=== PATIENT | female | born 1940 | race Caucasian/White ===

== ENCOUNTER 2017-04-02 10:24 | Outpatient (CLI) | payer MEDICARE ==
[2017-04-02 11:46] LABS: #Basophils 0.1 thou/uL (0.0-0.2); #Eosinphils 0.4 thou/uL (0.0-0.7); #Lymphocytes 3.6 thou/uL (1.20-3.40); #Monocytes 0.9 thou/uL (0.11-0.59); #Neutrophils 4.8 thou/uL (1.40-6.50); %Basophils 0.8 % (0.0-1.0); %Eosinophils 4.2 % (0.0-10.0); %Lymphocytes 36.8 % (21.0-51.0); Hematocrit 43.3 % (36.0-47.0); Mean Platelet Volume 6.3 fL (7.4-10.4); Red Blood Cell (RBC) Count 4.51 mill/uL (4.20-5.40); White Blood Cell (WBC) Count 9.6 thou/uL (4.8-10.8)
[2017-04-02 11:51] LABS: Prothrombin Time 16.1 SEC (12.0-14.7)
[2017-04-02 11:57] LABS: Bilirubin Negative (Negative); Blood, Urine Negative (Negative); Glucose, Urine (Dipstick) Negative (Negative); Ketone, Urine Negative (Negative); Nitrite Negative (Negative); Protein, Urine (Dipstick) Negative (Neg-Trace); Urobilinogen 0.2 mg/dL (0.2-1.0)
[2017-04-02 11:59] LABS: Bacteria/HPF Rare-Few HPF (None Seen); Hyaline Casts/LPF 0-3 HYALINE CAST LPF (0-3 Hyaline); WBC/HPF 0-3 HPF (0-3)
[2017-04-02 12:03] LABS: Anion Gap 11 mmol/L (10-20); BUN (Urea Nitrogen) 8 mg/dL (9.8-20.1); Calc. Creatinine Clearance 0 mL/min (70-130); Calcium 8.9 mg/dL (7.8-10.44); Carbon Dioxide 23 mmol/L (23-31); Chloride 106 mmol/L (98-107); Estimated GFR-MDRD 58
== END 2017-04-02 10:25 | disposition home or self-care (01) ==
LOC: LABBT 10:24
PROVIDERS: ATTEND Orthopaedic Surgery
DX: Z01.818 Encounter for other preprocedural examination (principal); M17.12 Unilateral primary osteoarthritis, left knee
CPT/HCPCS: 80048; 81001; 85025; 85610; 86850; 86900; 86901; 87081; 93005; 93010

== ENCOUNTER 2017-04-02 13:00 | Inpatient (IN) | payer MEDICARE ==
[2017-04-02 11:15] VITALS: BMI 38.2
[2017-04-07] MEDS ORDERED: Vancomycin HCl 1.5 GM in Sodium Chloride 0.9% 250 ML 300 ML IVPB SCH ×2 (06:00→18:00)
[2017-04-07] MEDS ORDERED: Clindamycin/D5W 600 mg/50 ml Premix Bag ONE (06:12)
[2017-04-07] MEDS ORDERED: Tranexamic Acid 1,000 MG/100 ML BAG ONE ×2 (06:12→10:52)
[2017-04-07] MEDS ORDERED: Ropivacaine 0.2% HCl/PF 20 ML ONE (06:19)
[2017-04-07] MEDS ORDERED: Lidocaine 1% (PF) 30 ML VIAL ONE (06:19)
[2017-04-07] MEDS ORDERED: Midazolam HCl 2 mg/2 ml Vial ONE ×2 (06:19→07:35)
[2017-04-07] MEDS ORDERED: Fentanyl 100 MCG/2 ML VIAL ONE (06:19)
[2017-04-07 06:22] LABS: Prothrombin Time 13.8 SEC (12.0-14.7)
[2017-04-07] MEDS ORDERED: Bupivacaine PF 0.5% 30 ML VIAL ONE (06:49)
[2017-04-07] MEDS ORDERED: Fentanyl 250 MCG/5 ML VIAL ONE (07:35)
[2017-04-07] MEDS ORDERED: Promethazine HCl 25 MG/ML VIAL IM PRN ×2 (07:50→07:57)
[2017-04-07] MEDS ORDERED: traMADol HCl 50 MG TAB PO PRN (07:50)
[2017-04-07] MEDS ORDERED: Zolpidem Tartrate 5 MG TAB PO PRN ×2 (07:50→07:57)
[2017-04-07] MEDS ORDERED: Ondansetron HCl/PF 4 MG/2 ML Vial IVP PRN ×4 (07:50→10:19)
[2017-04-07] MEDS ORDERED: Ketorolac Tromethamine 30 MG/ML VIAL IVP PRN (07:50)
[2017-04-07] MEDS ORDERED: diphenhydrAMINE 25 MG CAP PO PRN (07:57)
[2017-04-07] MEDS ORDERED: Acetaminophen 325 MG TAB PO PRN (07:57)
[2017-04-07] MEDS ORDERED: Tranexamic Acid 1,000 MG in Sodium Chloride 0.9% 100 ML IVPB SCH (08:00)
[2017-04-07] MEDS ORDERED: Carvedilol 6.25 MG TAB PO SCH (09:00)
--- NOTE | 2017-04-07 10:52 | OP ---
DATE OF PROCEDURE: 04/07/2017. PREOPERATIVE DIAGNOSIS: Left knee osteoarthrosis with severe flexion contracture and limitation of m otion. POSTOPERATIVE DIAGNOSIS: Left knee osteoarthrosis with severe flexion contracture and limitation of motion. PROCEDURE PERFORMED: Left total knee replacement using [employer] pinless navigation. SURGEON: Jono Vee M.D. ACCOUNTS RECEIVABLE ADMINISTRATOR: Rusty Purvis PA-C. BLOOD LOSS: Minimal. ANESTHETIC: The patient did have general anesthetic. She also had a preoperative block. COMPLICATIONS: None. IMPLANTS: To the left knee, [employer] total knee system. The femur was a size 3 cruciate retaining. We used a size 3 [place] tibial baseplate. We used a size 3 x 9 mm CSX3 tibial bearing and an as ymmetric 27 x 8 X3 patella. DISPOSITION: She did go to the recovery room in stable condition. INDICATIONS: This 76-year-old female who had her right knee replaced earlier this year and has done very well from this. At this time, she presents with severe pain and limitation of function and lorie on secondary to severe arthritis of the left knee. Her preoperative motion when asleep today was fred roximately 25-50 degrees only. PROCEDURE IN DETAIL: After all appropriate consent forms were explained and signed, the patient was taken back to the Operating Room and at this time was given general anesthetic. Once the level of ane sthesia was appropriate, a well-padded tourniquet was placed on the left leg and the leg was then pre pped and draped in standard surgical fashion. The limb was exsanguinated and tourniquet taken up to 3 00 mmHg. Midline incision was made with a 10 blade down through the skin and subcutaneous tissue. Bov ie electrocautery was used to coagulate any brisk venous bleeding. A new blade was used to make a med ial parapatellar arthrotomy. Small subperiosteal release was performed medially and excess fat pad wa s removed. The knee was flexed up to gain access to the femur. The femur was navigated and distal fem oral resection was made. Epicondylar access was used to align our sizing jig and this was pinned in p lace. We sized our femur to be a ?? 4:1 cutting block was applied and pinned. Anterior and posterior chamfer cuts were then made. We navigated out our proximal tibia and made our proximal tibial resecti on. Spreaders were used to remove any posterior osteophytes off the back of the femur as well as kavon ining meniscal tissue. A long alignment sd was then used to achieve correct rotation of our tibial b aseplate and a size ?? was chosen. This was pinned in place. We trialed the polyethylene and a ?? john yethylene gave us full extension and good stability throughout range of motion. Two towel clips and a saw were used to cut our patella. Three lug nuts were drilled and ?? patella was trialed which sat n icely in the trochlear groove. We then drilled our femur and punched our tibia. All components were r emoved. The knee was thoroughly irrigated and dried. Cement was mixed into the cement gun on the back table. Components were then placed. The knee was held out in full extension until the cement had dri ed. All excess bone cement was removed. Multiple #2 Vicryl stitches as well as a Quill was used to c lose our extensor mechanism. 0 Quill followed by a running Monoderm was then used to close the skin. Surgicel glue was then used on the skin. Once this had dried, soft tissue dressing was applied to the limb, tourniquet was let down, and the toes pinked up nicely. The patient was then awakened and colton en to the Recovery Room in stable condition. All counts were correct at the end of the case. The albert ent did receive preoperative IV antibiotics. The patient was injected with Marcaine for postoperativ e pain relief.
[2017-04-07] MEDS: Fentanyl 100 MCG/2 ML VIAL IV PRN (12:43)
[2017-04-07] MEDS: metFORMIN 500 MG TAB PO SCH (14:01)
[2017-04-07] MEDS: Sodium Chloride 0.9% 1,000 ML IV SCH ×2 (14:01→19:18)
[2017-04-07] MEDS: Carvedilol 25 MG TAB PO SCH ×2 (14:02→20:46)
[2017-04-07] MEDS: Calcium Carbonate + Vit D 1 TAB PO SCH ×2 (14:02→20:47)
[2017-04-07] MEDS: Clopidogrel Bisulfate 75 MG TAB PO SCH (14:02)
[2017-04-07] MEDS: Ferrous Gluconate 324 MG TAB PO SCH ×2 (14:03→20:47)
[2017-04-07] MEDS: Multivitamin W/ Minerals 1 TAB PO SCH (14:03)
[2017-04-07] MEDS: Clindamycin/D5W 900 MG in Premix Bag 1 BAG IVPB SCH ×2 (15:08→22:37)
[2017-04-07] MEDS: Losartan Potassium 25 MG TAB PO SCH (15:17)
[2017-04-07] MEDS: Dronedarone HCl 400 MG TAB PO SCH ×2 (15:17→19:14)
[2017-04-07] MEDS: Senokot S 8.6-50 MG TAB PO SCH ×2 (15:23→20:46)
[2017-04-07] MEDS ORDERED: Propofol 200 MG/20 ML VIAL ONE (16:06)
[2017-04-07] MEDS ORDERED: Glycopyrrolate 0.2 MG/ML 5 ML SYRINGE ONE (16:06)
[2017-04-07] MEDS ORDERED: Lidocaine 1% PF 5 ML VIAL ONE (16:06)
[2017-04-07] MEDS ORDERED: ePHEDrine/0.9% NaCl/PF SYRINGE 50 mg/10 ml ONE (16:06)
[2017-04-07] MEDS ORDERED: PHENYLEPHRINE-NS 100 MCG/ML 10 ML SYRINGE ONE (16:06)
[2017-04-07] MEDS ORDERED: Ondansetron HCl/PF 4 MG/2 ML Vial ONE (16:06)
[2017-04-07] MEDS ORDERED: Ropivacaine 0.2% HCl/PF (40 MG/20 ML VIAL) ONE (16:22)
--- NOTE | 2017-04-07 16:51 | PDOC.PN ---
- Subjective Encounter Start Date: 04/07/17 Encounter Start Time: 16:53 Pt seen for management of medical comorbidities, including diabetes mellitus. Denies chest pain, shortness of breath, fevers or chills. - Objective MAR Reviewed: Yes Vital Signs & Weight: Weight Weight 223 lb Phys Exam - Physical Examination Obese HEENT: moist MMs, oral pharynx no lesions Neck: supple Respiratory: clear to auscultation bilateral Cardiovascular: RRR Gastrointestinal: soft, non-tender s/p l knee surgery Neurological: moves all 4 limbs Psychiatric: normal affect Dx/Plan (1) DM type 2 (diabetes mellitus, type 2) Status: Chronic (2) HLD (hyperlipidemia) Code(s): E78.5 - HYPERLIPIDEMIA, UNSPECIFIED Status: Chronic (3) HTN (hypertension) Code(s): I10 - ESSENTIAL (PRIMARY) HYPERTENSION Status: Chronic (4) Paroxysmal a-fib Code(s): I48.0 - PAROXYSMAL ATRIAL FIBRILLATION Status: Chronic (5) Coronary artery disease Code(s): I25.10 - ATHSCL HEART DISEASE OF [place] CORONARY ARTERY W/O ANG PCTRS Status: Chronic - Plan * . Accuchecks, insulin sliding scale. Anticoagulation on hold. Monitor vital signs, titrate antihypertensives as needed. PRN IV hydralazine. CAD stable. Review of Systems - Review of Systems Respiratory: negative: Cough, Dry, Shortness of Breath, Hemoptysis, SOB with Excertion, Pleuritic Pain, Sputum, Wheezing Cardiovascular: negative: Chest Pain, Palpitations, Orthopnea, Paroxysmal Noc. Dyspnea, Edema, Light Headedness - Medications/Allergies Allergies/Adverse Reactions: Allergies Allergy/AdvReac Type Severity Reaction Status Date / Time cephalexin monohydrate Allergy Severe Hives Verified 04/02/17 11:15 [From Keflex] aspartame Allergy Intermediate NAUSEA/VOMI Verified 09/10/16 13:48 TING codeine Allergy Intermediate HALLUCINATI Verified 04/02/17 11:15 ONS Penicillins Allergy Intermediate Hives Verified 04/02/17 11:15 garlic AdvReac INTERFERS Verified 09/10/16 13:48 WITH HER MEDS yovany AdvReac INTERFERS Verified 09/10/16 13:48 WITH HER MEDS Medications: Current Medications Acetaminophen (Tylenol) 650 mg PO Q4H PRN PRN Reason: SAUC[place]/ T > 101F; Mild Pain (1-3) Atorvastatin Calcium (Lipitor) 10 mg PO [facility] Calcium/Vitamin D (Caltrate 600 + Vit D) 1 tab PO BID [facility] Last Admin: 04/07/17 14:02 Dose: Not Given Carvedilol (Coreg) 25 mg PO BID [facility] Last Admin: 04/07/17 14:02 Dose: Not Given Clopidogrel Bisulfate (Plavix) 75 mg PO DAILY [facility] Last Admin: 04/07/17 14:02 Dose: Not Given Diphenhydramine HCl (Benadryl) 25 mg PO Q6H PRN PRN Reason: Itching Dronedarone (Multaq) 400 mg PO BID-[facility] Last Admin: 04/07/17 15:17 Dose: 400 mg Estropipate (Ogen) 0.75 mg PO DAILY [facility] Last Admin: 04/07/17 15:18 Dose: Not Given Fentanyl (Sublimaze) 50 mcg IV Q1H PRN PRN Reason: BT PAIN Last Admin: 04/07/17 12:43 Dose: 50 mcg Ferrous Gluconate (Fergon) 324 mg PO BID [facility] Last Admin: 04/07/17 14:03 Dose: Not Given Glyburide (Diabeta) 5 mg PO QPM-[facility] Ropivacaine 250 ml/ Device 250 mls @ 0 mls/hr NERVE BLCK INF [facility] PRN Reason: As Directed Clindamycin Phosphate/Dextrose (900 mg/ Device) 50 mls @ 100 mls/hr IVPB Q6HR [facility] Stop: 04/07/17 18:29 Last Admin: 04/07/17 15:08 Dose: 50 mls Sodium Chloride (Normal Saline 0.9%) 1,000 mls @ 100 mls/hr IV .Q10H [facility] Last Admin: 04/07/17 14:01 Dose: Not Given Vancomycin HCl 1.5 gm/ Sodium (Chloride) 300 mls @ 200 mls/hr IVPB 1800 [facility] Stop: 04/07/17 19:29 Iron/Minerals/Multivitamins (Theragran M) 1 tab PO DAILY [facility] Last Admin: 04/07/17 14:03 Dose: Not Given Isosorbide Mononitrate (Imdur) 60 mg PO DAILY [facility] Last Admin: 04/07/17 15:17 Dose: 60 mg Ketorolac Tromethamine (Toradol) 15 mg IVP Q6H PRN PRN Reason: Moderate Pain (4-6) Stop: 04/10/17 07:51 Levothyroxine Sodium (Synthroid) 125 mcg PO 0600 [facility] Losartan Potassium (Cozaar) 100 mg PO DAILY [facility] Last Admin: 04/07/17 15:17 Dose: 100 mg Metformin HCl (Glucophage) 500 mg PO QAM-WM [facility] Last Admin: 04/07/17 14:01 Dose: Not Given Ondansetron HCl (Zofran) 4 mg IVP Q6H PRN PRN Reason: Nausea/Vomiting Ondansetron HCl (Zofran) 4 mg IVP Q6H PRN PRN Reason: Nausea/Vomiting Pentazocine HCl/Naloxone HCl (Talwin Nx) 1 tab PO Q6H PRN PRN Reason: Pain Promethazine HCl (Phenergan) 12.5 mg IM Q4H PRN PRN Reason: Nausea Promethazine HCl (Phenergan) 12.5 mg IM Q4H PRN PRN Reason: Nausea/Vomiting Senna/Docusate Sodium (Senokot S) 2 tab PO BID [facility] Last Admin: 04/07/17 15:23 Dose: Not Given Sodium Chloride (Flush - Normal Saline) 10 ml IVF PRN PRN PRN Reason: Saline Flush Tramadol HCl (Ultram) 50 mg PO Q6H PRN PRN Reason: Mild Pain (1-3) Tramadol HCl (Ultram) 100 mg PO Q6H PRN PRN Reason: Moderate Pain 4-6 Tramadol HCl (Ultram) 100 mg PO Q6H PRN PRN Reason: Mild Pain (1-3) Tramadol HCl (Ultram) 50 mg PO TID PRN PRN Reason: Pain Zolpidem Tartrate (Ambien) 5 mg PO HSPRN PRN PRN Reason: Insomnia Zolpidem Tartrate (Ambien) 5 mg PO HSPRN PRN PRN Reason: Insomnia
[2017-04-07] MEDS ORDERED: HumaLOG 300 UNITS/3 ML VIAL SC PRN (16:56)
[2017-04-07] MEDS ORDERED: Dextrose 5% in Water 1,000 ML IV PRN (16:56)
[2017-04-07] MEDS ORDERED: hydrALAZINE 20 MG/ML VIAL SLOW IVP PRN (16:58)
[2017-04-07] MEDS: Pentazocine HCl/Naloxone HCl 50/0.5 MG TAB PO PRN (17:53)
[2017-04-07] MEDS: glyBURIDE 5 MG TAB PO SCH (19:14)
[2017-04-07] MEDS: Atorvastatin Calcium 10 MG TAB PO SCH (20:47)
[2017-04-07] MEDS: traMADol HCl 50 MG TAB PO PRN (20:55)
[2017-04-08] MEDS: Pentazocine HCl/Naloxone HCl 50/0.5 MG TAB PO PRN ×2 (01:33→13:31)
[2017-04-08] MEDS: traMADol HCl 50 MG TAB PO PRN ×2 (03:37→10:48)
[2017-04-08] MEDS: Sodium Chloride 0.9% 1,000 ML IV SCH ×2 (03:43→17:20)
[2017-04-08 05:56] LABS: Hematocrit 38.4 % (36.0-47.0); Mean Platelet Volume 6.4 fL (7.4-10.4); Red Blood Cell (RBC) Count 4.02 mill/uL (4.20-5.40); White Blood Cell (WBC) Count 11.9 thou/uL (4.8-10.8)
[2017-04-08] MEDS: Levothyroxine Sodium 125 MCG TAB PO SCH (06:01)
[2017-04-08] MEDS: Fentanyl 100 MCG/2 ML VIAL IV PRN (06:02)
[2017-04-08] MEDS: Losartan Potassium 25 MG TAB PO SCH ×2 (08:51→15:06)
[2017-04-08] MEDS: Carvedilol 25 MG TAB PO SCH ×3 (08:51→21:44)
[2017-04-08] MEDS: Senokot S 8.6-50 MG TAB PO SCH ×2 (08:52→21:43)
[2017-04-08] MEDS: Calcium Carbonate + Vit D 1 TAB PO SCH ×2 (08:52→21:45)
[2017-04-08] MEDS: Clopidogrel Bisulfate 75 MG TAB PO SCH (08:52)
[2017-04-08] MEDS: Ferrous Gluconate 324 MG TAB PO SCH ×2 (08:52→21:44)
[2017-04-08] MEDS: metFORMIN 500 MG TAB PO SCH (08:52)
[2017-04-08] MEDS: Multivitamin W/ Minerals 1 TAB PO SCH (08:52)
[2017-04-08] MEDS: Dronedarone HCl 400 MG TAB PO SCH ×2 (08:52→17:28)
[2017-04-08] MEDS: Ropivacaine HCl/PF 250 ML in Premix Bag 1 BAG NERVE BLCK SCH (12:22)
[2017-04-08] MEDS: Cyclobenzaprine 10 MG TAB PO PRN (13:56)
--- NOTE | 2017-04-08 14:50 | PDOC.PN ---
- Subjective Encounter Start Date: 04/08/17 Encounter Start Time: 08:00 Pt seen for followup re: DM2. No complaints. - Objective Vital Signs & Weight: Vital Signs (12 hours) Temp Pulse Resp BP Pulse Ox 04/08/17 12:37 98 F 69 16 134/70 93 L 04/08/17 08:22 98.4 F 79 16 123/53 L 93 L 04/08/17 08:00 98.4 F 79 16 93 L 04/08/17 04:30 99.0 F 82 18 154/71 H 93 L Weight Admit Weight 223 lb Weight 223 lb I&O: 04/07/17 04/08/17 04/09/17 06:59 06:59 06:59 Intake Total 740 Output Total 1000 Balance -260 Result Diagrams: 04/08/17 04:53 Additional Labs: Accuchecks 04/08/17 04/07/17 04/07/17 06:00 20:52 18:09 POC Glucose 127 H 127 H 114 H Phys Exam - Physical Examination Constitutional: NAD HEENT: moist MMs Neck: supple Respiratory: clear to auscultation bilateral Cardiovascular: RRR Gastrointestinal: soft s/p L knee surgery Neurological: moves all 4 limbs Psychiatric: normal affect Dx/Plan (1) DM type 2 (diabetes mellitus, type 2) Status: Chronic (2) HLD (hyperlipidemia) Code(s): E78.5 - HYPERLIPIDEMIA, UNSPECIFIED Status: Chronic (3) HTN (hypertension) Code(s): I10 - ESSENTIAL (PRIMARY) HYPERTENSION Status: Chronic (4) Paroxysmal a-fib Code(s): I48.0 - PAROXYSMAL ATRIAL FIBRILLATION Status: Chronic (5) Coronary artery disease Code(s): I25.10 - ATHSCL HEART DISEASE OF [place] CORONARY ARTERY W/O ANG PCTRS Status: Chronic - Plan PT/OT, out of bed/ambulate, DVT proph w/SCDs * . Continue accuchecks, insulin sliding scale. Monitor vital signs. BP controlled at this time. Review of Systems - Review of Systems Respiratory: negative: Cough, Dry, Shortness of Breath, Hemoptysis, SOB with Excertion, Pleuritic Pain, Sputum, Wheezing Cardiovascular: negative: Chest Pain, Palpitations, Orthopnea, Paroxysmal Noc. Dyspnea, Edema, Light Headedness - Medications/Allergies Allergies/Adverse Reactions: Allergies Allergy/AdvReac Type Severity Reaction Status Date / Time cephalexin monohydrate Allergy Severe Hives Verified 04/02/17 11:15 [From Keflex] aspartame Allergy Intermediate NAUSEA/VOMI Verified 09/10/16 13:48 TING codeine Allergy Intermediate HALLUCINATI Verified 04/02/17 11:15 ONS Penicillins Allergy Intermediate Hives Verified 04/02/17 11:15 garlic AdvReac INTERFERS Verified 09/10/16 13:48 WITH HER MEDS yovany AdvReac INTERFERS Verified 09/10/16 13:48 WITH HER MEDS Medications: Current Medications Acetaminophen (Tylenol) 650 mg PO Q4H PRN PRN Reason: [place]/ T > 101F; Mild Pain (1-3) Atorvastatin Calcium (Lipitor) 10 mg PO HS [facility] Last Admin: 04/07/17 20:47 Dose: 10 mg Calcium/Vitamin D (Caltrate 600 + Vit D) 1 tab PO BID [facility] Last Admin: 04/08/17 08:52 Dose: 1 tab Carvedilol (Coreg) 25 mg PO 1200,2100 [facility] Last Admin: 04/08/17 11:59 Dose: 25 mg Clopidogrel Bisulfate (Plavix) 75 mg PO DAILY [facility] Last Admin: 04/08/17 08:52 Dose: 75 mg Cyclobenzaprine HCl (Flexeril) 10 mg PO TID PRN PRN Reason: Muscle Spasm Last Admin: 04/08/17 13:56 Dose: 10 mg Dextrose/Water (Dextrose 50%) 25 gm SLOW IVP PRN PRN PRN Reason: Hypoglycemia Diphenhydramine HCl (Benadryl) 25 mg PO Q6H PRN PRN Reason: Itching Dronedarone (Multaq) 400 mg PO BID-[facility] Last Admin: 04/08/17 08:52 Dose: 400 mg Estropipate (Ogen) 0.75 mg PO DAILY [facility] Last Admin: 04/07/17 15:18 Dose: Not Given Fentanyl (Sublimaze) 50 mcg IV Q1H PRN PRN Reason: BT PAIN Last Admin: 04/08/17 06:02 Dose: 50 mcg Ferrous Gluconate (Fergon) 324 mg PO BID [facility] Last Admin: 04/08/17 08:52 Dose: 324 mg Glucagon (Glucagon) 1 mg IM PRN PRN PRN Reason: Hypoglycemia Glyburide (Diabeta) 5 mg PO QPM-WM [facility] Last Admin: 04/07/17 19:14 Dose: 5 mg Hydralazine HCl (Apresoline) 10 mg SLOW IVP Q6H PRN PRN Reason: SBP Greater Than 170 Ropivacaine 250 ml/ Device 250 mls @ 0 mls/hr NERVE BLCK INF [facility] PRN Reason: As Directed Last Admin: 04/08/17 12:22 Dose: 250 mls Sodium Chloride (Normal Saline 0.9%) 1,000 mls @ 100 mls/hr IV .Q10H [facility] Last Admin: 04/08/17 03:43 Dose: Not Given Dextrose/Water (D5w) 1,000 mls @ 0 mls/hr IV .Q0M PRN; As Directed PRN Reason: Hypoglycemia Insulin Human Lispro (Humalog) 0 units SC .MILD SLIDING SCALE PRN PRN Reason: Mild Correctional Scale Iron/Minerals/Multivitamins (Theragran M) 1 tab PO DAILY [facility] Last Admin: 04/08/17 08:52 Dose: 1 tab Isosorbide Mononitrate (Imdur) 60 mg PO 0800 [facility] Ketorolac Tromethamine (Toradol) 15 mg IVP Q6H PRN PRN Reason: Moderate Pain (4-6) Stop: 04/10/17 07:51 Last Admin: 04/07/17 17:23 Dose: 15 mg Levothyroxine Sodium (Synthroid) 125 mcg PO 0600 [facility] Last Admin: 04/08/17 06:01 Dose: 125 mcg Losartan Potassium (Cozaar) 100 mg PO 1500 [facility] Metformin HCl (Glucophage) 500 mg PO QA-[facility] Last Admin: 04/08/17 08:52 Dose: 500 mg Ondansetron HCl (Zofran) 4 mg IVP Q6H PRN PRN Reason: Nausea/Vomiting Pentazocine HCl/Naloxone HCl (Talwin Nx) 1 tab PO Q6H PRN PRN Reason: Pain Last Admin: 04/08/17 13:31 Dose: 1 tab Promethazine HCl (Phenergan) 12.5 mg IM Q4H PRN PRN Reason: Nausea/Vomiting Senna/Docusate Sodium (Senokot S) 2 tab PO BID [facility] Last Admin: 04/08/17 08:52 Dose: 2 tab Sodium Chloride (Flush - Normal Saline) 10 ml IVF PRN PRN PRN Reason: Saline Flush Tramadol HCl (Ultram) 100 mg PO Q6H PRN PRN Reason: Severe Pain (7-10) Tramadol HCl (Ultram) 50 mg PO TID PRN PRN Reason: Moderate Pain (4-6) Zolpidem Tartrate (Ambien) 5 mg PO HSPRN PRN PRN Reason: Insomnia
[2017-04-08] MEDS: glyBURIDE 5 MG TAB PO SCH (17:27)
[2017-04-08] MEDS: Atorvastatin Calcium 10 MG TAB PO SCH (21:45)
[2017-04-09] MEDS: Cyclobenzaprine 10 MG TAB PO PRN ×2 (00:50→09:57)
[2017-04-09] MEDS: Sodium Chloride 0.9% 1,000 ML IV SCH ×2 (01:56→09:55)
[2017-04-09 05:43] LABS: Hematocrit 36.3 % (36.0-47.0); Red Blood Cell (RBC) Count 3.77 mill/uL (4.20-5.40); White Blood Cell (WBC) Count 12.7 thou/uL (4.8-10.8)
[2017-04-09] MEDS: Levothyroxine Sodium 125 MCG TAB PO SCH (06:41)
[2017-04-09] MEDS: metFORMIN 500 MG TAB PO SCH (08:31)
[2017-04-09] MEDS: Ferrous Gluconate 324 MG TAB PO SCH ×2 (08:31→21:02)
[2017-04-09] MEDS: Multivitamin W/ Minerals 1 TAB PO SCH (08:31)
[2017-04-09] MEDS: Dronedarone HCl 400 MG TAB PO SCH ×2 (08:31→17:38)
[2017-04-09] MEDS: Senokot S 8.6-50 MG TAB PO SCH ×2 (08:31→21:02)
[2017-04-09] MEDS: Clopidogrel Bisulfate 75 MG TAB PO SCH (08:31)
[2017-04-09] MEDS: Calcium Carbonate + Vit D 1 TAB PO SCH ×2 (08:31→21:01)
[2017-04-09] MEDS: Pentazocine HCl/Naloxone HCl 50/0.5 MG TAB PO PRN (09:57)
[2017-04-09] MEDS: Carvedilol 25 MG TAB PO SCH ×2 (11:56→21:02)
[2017-04-09] MEDS ORDERED: Apixaban 5 MG TAB PO SCH (12:30)
[2017-04-09] MEDS: Dextrose 50% Abboject 50 ML SYRINGE SLOW IVP PRN ×2 (13:05→22:02)
--- NOTE | 2017-04-09 13:47 | PDOC.PN ---
- Subjective Encounter Start Date: 04/09/17 Encounter Start Time: 08:40 Pt seen for followup re: hypoglycemia. Denies chest pain, loss of consciousness. - Objective MAR Reviewed: Yes Vital Signs & Weight: Vital Signs (12 hours) Temp Pulse Resp BP Pulse Ox 04/09/17 11:35 97.3 F L 61 18 109/55 L 92 L 04/09/17 08:19 98.9 F 62 14 104/57 L 91 L 04/09/17 04:21 98.6 F 70 16 103/55 L 87 L Weight Admit Weight 223 lb Weight 223 lb I&O: 04/08/17 04/09/17 04/10/17 06:59 06:59 06:59 Intake Total 740 Output Total 1000 800 Balance -260 -800 Result Diagrams: 04/09/17 05:03 Additional Labs: Accuchecks 04/09/17 04/09/17 04/09/17 12:48 12:13 11:59 POC Glucose 38 L* 52 L* 82 04/09/17 04/09/17 04/09/17 11:26 10:42 07:01 POC Glucose 52 L* 45 L* 79 04/09/17 04/08/17 04/08/17 05:43 20:49 15:51 POC Glucose 46 L* 88 111 H Phys Exam - Physical Examination Constitutional: NAD HEENT: moist MMs Neck: supple Respiratory: clear to auscultation bilateral Cardiovascular: RRR Gastrointestinal: soft s/p L knee surgery Neurological: moves all 4 limbs Psychiatric: normal affect Dx/Plan (1) Hypoglycemia Code(s): E16.2 - HYPOGLYCEMIA, UNSPECIFIED Status: Acute (2) DM type 2 (diabetes mellitus, type 2) Status: Chronic (3) HLD (hyperlipidemia) Code(s): E78.5 - HYPERLIPIDEMIA, UNSPECIFIED Status: Chronic (4) HTN (hypertension) Code(s): I10 - ESSENTIAL (PRIMARY) HYPERTENSION Status: Chronic (5) Paroxysmal a-fib Code(s): I48.0 - PAROXYSMAL ATRIAL FIBRILLATION Status: Chronic (6) Coronary artery disease Code(s): I25.10 - ATHSCL HEART DISEASE OF [place] CORONARY ARTERY W/O ANG PCTRS Status: Chronic - Plan * . Check Chem-7 to ensure pt's renal function has not worsened. Hold glyburide. Hold insulin. Continue accuchecks. IV D50 PRN. If needed, will start pt on dextrose-containing IV fluids. Review of Systems - Review of Systems Constitutional: negative: Fever, Chills, Sweats, Weakness, Malaise Respiratory: negative: Cough, Dry, Shortness of Breath, Hemoptysis, SOB with Excertion, Pleuritic Pain, Sputum, Wheezing - Medications/Allergies Allergies/Adverse Reactions: Allergies Allergy/AdvReac Type Severity Reaction Status Date / Time cephalexin monohydrate Allergy Severe Hives Verified 04/02/17 11:15 [From Keflex] aspartame Allergy Intermediate NAUSEA/VOMI Verified 09/10/16 13:48 TING codeine Allergy Intermediate HALLUCINATI Verified 04/02/17 11:15 ONS Penicillins Allergy Intermediate Hives Verified 04/02/17 11:15 garlic AdvReac INTERFERS Verified 09/10/16 13:48 WITH HER MEDS yovany AdvReac INTERFERS Verified 09/10/16 13:48 WITH HER MEDS Medications: Current Medications Acetaminophen (Tylenol) 650 mg PO Q4H PRN PRN Reason: [place]/ T > 101F; Mild Pain (1-3) Apixaban (Eliquis) 5 mg PO BID [facility] Apixaban (Eliquis) 5 mg PO NOW [facility] Stop: 04/09/17 14:30 Last Admin: 04/09/17 13:20 Dose: 5 mg Atorvastatin Calcium (Lipitor) 10 mg PO HS [facility] Last Admin: 04/08/17 21:45 Dose: 10 mg Calcium/Vitamin D (Caltrate 600 + Vit D) 1 tab PO BID [facility] Last Admin: 04/09/17 08:31 Dose: 1 tab Carvedilol (Coreg) 25 mg PO 1200,2100 [facility] Last Admin: 04/09/17 11:56 Dose: 25 mg Clopidogrel Bisulfate (Plavix) 75 mg PO DAILY [facility] Last Admin: 04/09/17 08:31 Dose: 75 mg Cyclobenzaprine HCl (Flexeril) 10 mg PO TID PRN PRN Reason: Muscle Spasm Last Admin: 04/09/17 09:57 Dose: 10 mg Dextrose/Water (Dextrose 50%) 25 gm SLOW IVP PRN PRN PRN Reason: Hypoglycemia Last Admin: 04/09/17 13:05 Dose: 25 gm Diphenhydramine HCl (Benadryl) 25 mg PO Q6H PRN PRN Reason: Itching Dronedarone (Multaq) 400 mg PO BID-[facility] Last Admin: 04/09/17 08:31 Dose: 400 mg Estropipate (Ogen) 0.75 mg PO DAILY [facility] Last Admin: 04/09/17 08:31 Dose: 0.75 mg Fentanyl (Sublimaze) 50 mcg IV Q1H PRN PRN Reason: BT PAIN Last Admin: 04/08/17 06:02 Dose: 50 mcg Ferrous Gluconate (Fergon) 324 mg PO BID [facility] Last Admin: 04/09/17 08:31 Dose: 324 mg Glucagon (Glucagon) 1 mg IM PRN PRN PRN Reason: Hypoglycemia Hydralazine HCl (Apresoline) 10 mg SLOW IVP Q6H PRN PRN Reason: SBP Greater Than 170 Ropivacaine 250 ml/ Device 250 mls @ 0 mls/hr NERVE BLCK INF [facility] PRN Reason: As Directed Last Admin: 04/08/17 12:22 Dose: 250 mls Sodium Chloride (Normal Saline 0.9%) 1,000 mls @ 100 mls/hr IV .Q10H [facility] Last Admin: 04/09/17 09:55 Dose: Not Given Dextrose/Water (D5w) 1,000 mls @ 0 mls/hr IV .Q0M PRN; As Directed PRN Reason: Hypoglycemia Insulin Human Lispro (Humalog) 0 units SC .MILD SLIDING SCALE PRN PRN Reason: Mild Correctional Scale Iron/Minerals/Multivitamins (Theragran M) 1 tab PO DAILY [facility] Last Admin: 04/09/17 08:31 Dose: 1 tab Isosorbide Mononitrate (Imdur) 60 mg PO 0800 [facility] Last Admin: 04/09/17 08:31 Dose: 60 mg Ketorolac Tromethamine (Toradol) 15 mg IVP Q6H PRN PRN Reason: Moderate Pain (4-6) Stop: 04/10/17 07:51 Last Admin: 04/07/17 17:23 Dose: 15 mg Levothyroxine Sodium (Synthroid) 125 mcg PO 0600 [facility] Last Admin: 04/09/17 06:41 Dose: 125 mcg Losartan Potassium (Cozaar) 100 mg PO 1500 [facility] Last Admin: 04/08/17 15:06 Dose: 100 mg Metformin HCl (Glucophage) 500 mg PO QAM-WM [facility] Last Admin: 04/09/17 08:31 Dose: 500 mg Ondansetron HCl (Zofran) 4 mg IVP Q6H PRN PRN Reason: Nausea/Vomiting Pentazocine HCl/Naloxone HCl (Talwin Nx) 1 tab PO Q6H PRN PRN Reason: Pain Last Admin: 04/09/17 09:57 Dose: 1 tab Promethazine HCl (Phenergan) 12.5 mg IM Q4H PRN PRN Reason: Nausea/Vomiting Senna/Docusate Sodium (Senokot S) 2 tab PO BID [facility] Last Admin: 04/09/17 08:31 Dose: 2 tab Sodium Chloride (Flush - Normal Saline) 10 ml IVF PRN PRN PRN Reason: Saline Flush Tramadol HCl (Ultram) 100 mg PO Q6H PRN PRN Reason: Severe Pain (7-10) Tramadol HCl (Ultram) 50 mg PO TID PRN PRN Reason: Moderate Pain (4-6) Zolpidem Tartrate (Ambien) 5 mg PO HSPRN PRN PRN Reason: Insomnia
[2017-04-09] MEDS: Ropivacaine HCl/PF 250 ML in Premix Bag 1 BAG NERVE BLCK SCH (13:58)
[2017-04-09 15:58] LABS: Anion Gap 10 mmol/L (10-20); BUN (Urea Nitrogen) 15 mg/dL (9.8-20.1); Calc. Creatinine Clearance 67 mL/min (70-130); Calcium 9.7 mg/dL (7.8-10.44); Carbon Dioxide 29 mmol/L (23-31); Chloride 100 mmol/L (98-107); Estimated GFR-MDRD 48
[2017-04-09] MEDS: Losartan Potassium 25 MG TAB PO SCH (16:31)
[2017-04-09] MEDS ORDERED: Dextrose 5 % And 0.9 % NaCl 1,000 ML IV SCH (16:45)
[2017-04-09] MEDS: Apixaban 5 MG TAB PO SCH (21:01)
[2017-04-09] MEDS: Atorvastatin Calcium 10 MG TAB PO SCH (21:02)
[2017-04-10] MEDS ORDERED: methylPREDNISolone Sod Succ/PF 125 MG/2 ML VIAL IVP SCH (01:15)
[2017-04-10] MEDS: Dextrose 10% in Water 1,000 ML IV SCH ×3 (01:27→20:46)
[2017-04-10] MEDS: Levothyroxine Sodium 125 MCG TAB PO SCH (05:05)
[2017-04-10] MEDS: traMADol HCl 50 MG TAB PO PRN ×3 (05:15→17:45)
[2017-04-10 05:50] LABS: Mean Platelet Volume 7.6 fL (7.4-10.4); Red Blood Cell (RBC) Count 3.73 mill/uL (4.20-5.40); White Blood Cell (WBC) Count 12.4 thou/uL (4.8-10.8)
[2017-04-10] MEDS: Calcium Carbonate + Vit D 1 TAB PO SCH ×2 (09:15→20:38)
[2017-04-10] MEDS: Senokot S 8.6-50 MG TAB PO SCH ×2 (09:15→20:39)
[2017-04-10] MEDS: Ferrous Gluconate 324 MG TAB PO SCH ×2 (09:16→20:38)
[2017-04-10] MEDS: Multivitamin W/ Minerals 1 TAB PO SCH (09:16)
[2017-04-10] MEDS: Clopidogrel Bisulfate 75 MG TAB PO SCH (09:16)
[2017-04-10] MEDS: Dronedarone HCl 400 MG TAB PO SCH ×2 (09:17→17:43)
[2017-04-10] MEDS: Cyclobenzaprine 10 MG TAB PO PRN ×2 (09:17→17:46)
[2017-04-10] MEDS: metFORMIN 500 MG TAB PO SCH (09:17)
[2017-04-10] MEDS: Apixaban 5 MG TAB PO SCH ×2 (09:17→20:38)
--- NOTE | 2017-04-10 11:00 | PDOC.PN ---
- Subjective Encounter Start Date: 04/10/17 Encounter Start Time: 08:20 Pt seen for followup re: hypoglycemia. Denies any symptoms. - Objective MAR Reviewed: Yes Vital Signs & Weight: Vital Signs (12 hours) Temp Pulse Resp BP Pulse Ox 04/10/17 09:27 98.4 F 69 16 182/71 H 91 L 04/10/17 04:38 98.3 F 59 L 16 131/66 91 L 04/10/17 00:06 98.2 F 64 16 126/61 92 L Weight Admit Weight 223 lb Weight 223 lb I&O: 04/09/17 04/10/17 04/11/17 06:59 06:59 06:59 Intake Total 735 Output Total 800 1900 Balance -800 -1165 Result Diagrams: 04/10/17 05:01 04/09/17 15:34 Additional Labs: Accuchecks 04/10/17 04/10/17 04/10/17 09:25 06:30 03:43 POC Glucose 212 H 153 H 66 L 04/10/17 04/10/17 04/09/17 02:23 00:25 22:45 POC Glucose 77 53 L* 78 04/09/17 04/09/17 04/09/17 21:38 20:29 18:03 POC Glucose 43 L* 51 L* 76 04/09/17 04/09/17 04/09/17 14:13 12:48 12:13 POC Glucose 143 H 38 L* 52 L* 04/09/17 04/09/17 11:59 11:26 POC Glucose 82 52 L* Phys Exam - Physical Examination Constitutional: NAD HEENT: moist MMs, sclera anicteric Neck: supple Respiratory: clear to auscultation bilateral Cardiovascular: RRR Gastrointestinal: soft, positive bowel sounds Musculoskeletal: pulses present Neurological: moves all 4 limbs Psychiatric: normal affect Skin: no rash Dx/Plan (1) Hypoglycemia Code(s): E16.2 - HYPOGLYCEMIA, UNSPECIFIED Status: Acute (2) DM type 2 (diabetes mellitus, type 2) Status: Chronic (3) HLD (hyperlipidemia) Code(s): E78.5 - HYPERLIPIDEMIA, UNSPECIFIED Status: Chronic (4) HTN (hypertension) Code(s): I10 - ESSENTIAL (PRIMARY) HYPERTENSION Status: Chronic (5) Paroxysmal a-fib Code(s): I48.0 - PAROXYSMAL ATRIAL FIBRILLATION Status: Chronic (6) Coronary artery disease Code(s): I25.10 - ATHSCL HEART DISEASE OF [place] CORONARY ARTERY W/O ANG PCTRS Status: Chronic - Plan * . Hypoglycemia improved. DC D5 NS, monitor accuchecks. Hold glyburide. Plan for transfer to Inpt Rehab noted. If accuchecks stable, can be discharged to Inpt Rehab (with mild insulin sliding scale, off of glyburide). Review of Systems - Review of Systems Cardiovascular: negative: Chest Pain, Palpitations, Orthopnea, Paroxysmal Noc. Dyspnea, Edema, Light Headedness Neurological: negative: Weakness, Numbness, Incoordination, Change in Speech, Confusion, Seizures - Medications/Allergies Allergies/Adverse Reactions: Allergies Allergy/AdvReac Type Severity Reaction Status Date / Time cephalexin monohydrate Allergy Severe Hives Verified 04/02/17 11:15 [From Keflex] aspartame Allergy Intermediate NAUSEA/VOMI Verified 09/10/16 13:48 TING codeine Allergy Intermediate HALLUCINATI Verified 04/02/17 11:15 ONS Penicillins Allergy Intermediate Hives Verified 04/02/17 11:15 garlic AdvReac INTERFERS Verified 09/10/16 13:48 WITH HER MEDS yovany AdvReac INTERFERS Verified 09/10/16 13:48 WITH HER MEDS Medications: Current Medications Acetaminophen (Tylenol) 650 mg PO Q4H PRN PRN Reason: [place]UC[place]/ T > 101F; Mild Pain (1-3) Apixaban (Eliquis) 5 mg PO BID [facility] Last Admin: 04/10/17 09:17 Dose: 5 mg Atorvastatin Calcium (Lipitor) 10 mg PO HS [facility] Last Admin: 04/09/17 21:02 Dose: 10 mg Calcium/Vitamin D (Caltrate 600 + Vit D) 1 tab PO BID [facility] Last Admin: 04/10/17 09:15 Dose: 1 tab Carvedilol (Coreg) 25 mg PO 1200,2100 [facility] Last Admin: 04/09/17 21:02 Dose: 25 mg Clopidogrel Bisulfate (Plavix) 75 mg PO DAILY [facility] Last Admin: 04/10/17 09:16 Dose: 75 mg Cyclobenzaprine HCl (Flexeril) 10 mg PO TID PRN PRN Reason: Muscle Spasm Last Admin: 04/10/17 09:17 Dose: 10 mg Dextrose/Water (Dextrose 50%) 25 gm SLOW IVP PRN PRN PRN Reason: Hypoglycemia Last Admin: 04/09/17 22:02 Dose: 25 gm Diphenhydramine HCl (Benadryl) 25 mg PO Q6H PRN PRN Reason: Itching Dronedarone (Multaq) 400 mg PO BID[facility] Last Admin: 04/10/17 09:17 Dose: 400 mg Estropipate (Ogen) 0.75 mg PO DAILY [facility] Last Admin: 04/10/17 09:18 Dose: 0.75 mg Fentanyl (Sublimaze) 50 mcg IV Q1H PRN PRN Reason: BT PAIN Last Admin: 04/08/17 06:02 Dose: 50 mcg Ferrous Gluconate (Fergon) 324 mg PO BID [facility] Last Admin: 04/10/17 09:16 Dose: 324 mg Glucagon (Glucagon) 1 mg IM PRN PRN PRN Reason: Hypoglycemia Hydralazine HCl (Apresoline) 10 mg SLOW IVP Q6H PRN PRN Reason: SBP Greater Than 170 Ropivacaine 250 ml/ Device 250 mls @ 0 mls/hr NERVE BLCK INF [facility] PRN Reason: As Directed Last Admin: 04/09/17 13:58 Dose: 250 mls Dextrose/Water (D5w) 1,000 mls @ 0 mls/hr IV .Q0M PRN; As Directed PRN Reason: Hypoglycemia Last Admin: 04/09/17 22:02 Dose: 1,000 mls Dextrose/Water (Dextrose 10% In Water) 1,000 mls @ 100 mls/hr IV .Q10H [facility] Last Admin: 04/10/17 10:31 Dose: Not Given Iron/Minerals/Multivitamins (Theragran M) 1 tab PO DAILY [facility] Last Admin: 04/10/17 09:16 Dose: 1 tab Isosorbide Mononitrate (Imdur) 60 mg PO 0800 [facility] Last Admin: 04/10/17 09:16 Dose: 60 mg Levothyroxine Sodium (Synthroid) 125 mcg PO 0600 [facility] Last Admin: 04/10/17 05:05 Dose: 125 mcg Losartan Potassium (Cozaar) 100 mg PO 1500 [facility] Last Admin: 04/09/17 16:31 Dose: 100 mg Metformin HCl (Glucophage) 500 mg PO QAM-WM [facility] Last Admin: 04/10/17 09:17 Dose: Not Given Methylprednisolone Sodium Succinate (Solu-Medrol) 40 mg IVP Q6HR [facility] Ondansetron HCl (Zofran) 4 mg IVP Q6H PRN PRN Reason: Nausea/Vomiting Pentazocine HCl/Naloxone HCl (Talwin Nx) 1 tab PO Q6H PRN PRN Reason: Pain Last Admin: 04/09/17 09:57 Dose: 1 tab Promethazine HCl (Phenergan) 12.5 mg IM Q4H PRN PRN Reason: Nausea/Vomiting Senna/Docusate Sodium (Senokot S) 2 tab PO BID [facility] Last Admin: 04/10/17 09:15 Dose: 2 tab Sodium Chloride (Flush - Normal Saline) 10 ml IVF PRN PRN PRN Reason: Saline Flush Tramadol HCl (Ultram) 100 mg PO Q6H PRN PRN Reason: Severe Pain (7-10) Tramadol HCl (Ultram) 50 mg PO TID PRN PRN Reason: Moderate Pain (4-6) Last Admin: 04/10/17 05:15 Dose: 50 mg Zolpidem Tartrate (Ambien) 5 mg PO HSPRN PRN PRN Reason: Insomnia
[2017-04-10] MEDS: Carvedilol 25 MG TAB PO SCH ×2 (12:23→20:38)
[2017-04-10] MEDS: Losartan Potassium 25 MG TAB PO SCH (15:55)
[2017-04-10] MEDS: Atorvastatin Calcium 10 MG TAB PO SCH (20:38)
[2017-04-11 05:34] LABS: Hematocrit 32.5 % (36.0-47.0); Mean Platelet Volume 7.1 fL (7.4-10.4); Red Blood Cell (RBC) Count 3.36 mill/uL (4.20-5.40); White Blood Cell (WBC) Count 11.8 thou/uL (4.8-10.8)
[2017-04-11] MEDS: Levothyroxine Sodium 125 MCG TAB PO SCH (06:15)
[2017-04-11] MEDS: Dextrose 10% in Water 1,000 ML IV SCH ×2 (06:46→18:24)
[2017-04-11] MEDS: Cyclobenzaprine 10 MG TAB PO PRN ×2 (08:02→16:03)
[2017-04-11] MEDS: Dronedarone HCl 400 MG TAB PO SCH ×2 (08:03→17:58)
[2017-04-11] MEDS: Calcium Carbonate + Vit D 1 TAB PO SCH ×2 (08:03→20:55)
[2017-04-11] MEDS: traMADol HCl 50 MG TAB PO PRN ×2 (08:03→16:03)
[2017-04-11] MEDS: Apixaban 5 MG TAB PO SCH ×2 (08:03→20:55)
[2017-04-11] MEDS: Clopidogrel Bisulfate 75 MG TAB PO SCH (08:04)
[2017-04-11] MEDS: Multivitamin W/ Minerals 1 TAB PO SCH (08:04)
[2017-04-11] MEDS: metFORMIN 500 MG TAB PO SCH (08:04)
[2017-04-11] MEDS: Senokot S 8.6-50 MG TAB PO SCH ×3 (08:04→20:58)
[2017-04-11] MEDS: Ferrous Gluconate 324 MG TAB PO SCH ×2 (08:04→20:56)
--- NOTE | 2017-04-11 14:37 | PDOC.PN ---
- Subjective Encounter Start Date: 04/11/17 Encounter Start Time: 10:00 Pt seen for followup re: diabetes mellitus. Denies chest pain or shortness of breath. - Objective MAR Reviewed: Yes Vital Signs & Weight: Vital Signs (12 hours) Temp Pulse Resp BP Pulse Ox 04/11/17 12:42 98.2 F 65 20 147/66 H 94 L 04/11/17 08:17 98 F 56 L 14 156/75 H 94 L 04/11/17 08:00 98.2 F 65 20 94 L 04/11/17 04:39 98.0 F 63 18 146/76 H 93 L Weight Admit Weight 223 lb Weight 223 lb I&O: 04/10/17 04/11/17 04/12/17 06:59 06:59 06:59 Intake Total 735 1240 Output Total 1900 1725 Balance -1165 -252 Result Diagrams: 04/12/17 05:04 04/09/17 15:34 Additional Labs: Accuchecks 04/11/17 04/11/17 04/11/17 11:19 08:18 04:29 POC Glucose 121 H 125 H 117 H 04/10/17 04/10/17 04/10/17 23:14 20:23 16:16 POC Glucose 171 H 211 H 218 H Phys Exam - Physical Examination Obese HEENT: moist MMs Neck: full ROM Respiratory: clear to auscultation bilateral Cardiovascular: RRR Gastrointestinal: soft Neurological: moves all 4 limbs Psychiatric: normal affect Dx/Plan (1) DM type 2 (diabetes mellitus, type 2) Status: Chronic (2) HLD (hyperlipidemia) Code(s): E78.5 - HYPERLIPIDEMIA, UNSPECIFIED Status: Chronic (3) HTN (hypertension) Code(s): I10 - ESSENTIAL (PRIMARY) HYPERTENSION Status: Chronic (4) Paroxysmal a-fib Code(s): I48.0 - PAROXYSMAL ATRIAL FIBRILLATION Status: Chronic (5) Coronary artery disease Code(s): I25.10 - ATHSCL HEART DISEASE OF [place] CORONARY ARTERY W/O ANG PCTRS Status: Chronic (6) Hypoglycemia Code(s): E16.2 - HYPOGLYCEMIA, UNSPECIFIED Status: Resolved - Plan PT/OT, out of bed/ambulate * . Continue metformin and insulin sliding scale. Continue to hold glyburide. Monitor vital signs and titrate antihypertensives as needed. Awaiting Inpt Rehab bed. Review of Systems - Review of Systems Respiratory: negative: Cough, Dry, Shortness of Breath, Hemoptysis, SOB with Excertion, Pleuritic Pain, Sputum, Wheezing Cardiovascular: negative: Chest Pain, Palpitations, Orthopnea, Paroxysmal Noc. Dyspnea, Edema, Light Headedness - Medications/Allergies Allergies/Adverse Reactions: Allergies Allergy/AdvReac Type Severity Reaction Status Date / Time cephalexin monohydrate Allergy Severe Hives Verified 04/02/17 11:15 [From Keflex] aspartame Allergy Intermediate NAUSEA/VOMI Verified 09/10/16 13:48 TING codeine Allergy Intermediate HALLUCINATI Verified 04/02/17 11:15 ONS Penicillins Allergy Intermediate Hives Verified 04/02/17 11:15 garlic AdvReac INTERFERS Verified 09/10/16 13:48 WITH HER MEDS yovany AdvReac INTERFERS Verified 09/10/16 13:48 WITH HER MEDS Medications: Current Medications Acetaminophen (Tylenol) 650 mg PO Q4H PRN PRN Reason: [place]UC[place]/ T > 101F; Mild Pain (1-3) Apixaban (Eliquis) 5 mg PO BID [facility] Last Admin: 04/11/17 08:03 Dose: 5 mg Atorvastatin Calcium (Lipitor) 10 mg PO HS [facility] Last Admin: 04/10/17 20:38 Dose: 10 mg Calcium/Vitamin D (Caltrate 600 + Vit D) 1 tab PO BID [facility] Last Admin: 04/11/17 08:03 Dose: 1 tab Carvedilol (Coreg) 25 mg PO 1200,2100 [facility] Last Admin: 04/10/17 20:38 Dose: 25 mg Clopidogrel Bisulfate (Plavix) 75 mg PO DAILY [facility] Last Admin: 04/11/17 08:04 Dose: 75 mg Cyclobenzaprine HCl (Flexeril) 10 mg PO TID PRN PRN Reason: Muscle Spasm Last Admin: 04/11/17 08:02 Dose: 10 mg Dextrose/Water (Dextrose 50%) 25 gm SLOW IVP PRN PRN PRN Reason: Hypoglycemia Last Admin: 04/09/17 22:02 Dose: 25 gm Diphenhydramine HCl (Benadryl) 25 mg PO Q6H PRN PRN Reason: Itching Dronedarone (Multaq) 400 mg PO BID-[facility] Last Admin: 04/11/17 08:03 Dose: 400 mg Estropipate (Ogen) 0.75 mg PO DAILY [facility] Last Admin: 04/11/17 08:04 Dose: 0.75 mg Fentanyl (Sublimaze) 50 mcg IV Q1H PRN PRN Reason: BT PAIN Last Admin: 04/08/17 06:02 Dose: 50 mcg Ferrous Gluconate (Fergon) 324 mg PO BID [facility] Last Admin: 04/11/17 08:04 Dose: 324 mg Glucagon (Glucagon) 1 mg IM PRN PRN PRN Reason: Hypoglycemia Hydralazine HCl (Apresoline) 10 mg SLOW IVP Q6H PRN PRN Reason: SBP Greater Than 170 Ropivacaine 250 ml/ Device 250 mls @ 0 mls/hr NERVE BLCK INF [facility] PRN Reason: As Directed Last Admin: 04/09/17 13:58 Dose: 250 mls Dextrose/Water (D5w) 1,000 mls @ 0 mls/hr IV .Q0M PRN; As Directed PRN Reason: Hypoglycemia Last Admin: 04/09/17 22:02 Dose: 1,000 mls Dextrose/Water (Dextrose 10% In Water) 1,000 mls @ 100 mls/hr IV .Q10H [facility] Last Admin: 04/11/17 06:46 Dose: Not Given Iron/Minerals/Multivitamins (Theragran M) 1 tab PO DAILY [facility] Last Admin: 04/11/17 08:04 Dose: 1 tab Isosorbide Mononitrate (Imdur) 60 mg PO 0800 [facility] Last Admin: 04/11/17 08:03 Dose: 60 mg Levothyroxine Sodium (Synthroid) 125 mcg PO 0600 [facility] Last Admin: 04/11/17 06:15 Dose: 125 mcg Losartan Potassium (Cozaar) 100 mg PO 1500 [facility] Last Admin: 04/10/17 15:55 Dose: 100 mg Metformin HCl (Glucophage) 500 mg PO QAM-[facility] Last Admin: 04/11/17 08:04 Dose: 500 mg Ondansetron HCl (Zofran) 4 mg IVP Q6H PRN PRN Reason: Nausea/Vomiting Pentazocine HCl/Naloxone HCl (Talwin Nx) 1 tab PO Q6H PRN PRN Reason: Pain Last Admin: 04/09/17 09:57 Dose: 1 tab Promethazine HCl (Phenergan) 12.5 mg IM Q4H PRN PRN Reason: Nausea/Vomiting Senna/Docusate Sodium (Senokot S) 2 tab PO BID [facility] Last Admin: 04/11/17 08:04 Dose: 2 tab Sodium Chloride (Flush - Normal Saline) 10 ml IVF PRN PRN PRN Reason: Saline Flush Tramadol HCl (Ultram) 100 mg PO Q6H PRN PRN Reason: Severe Pain (7-10) Tramadol HCl (Ultram) 50 mg PO TID PRN PRN Reason: Moderate Pain (4-6) Last Admin: 04/11/17 08:03 Dose: 50 mg Zolpidem Tartrate (Ambien) 5 mg PO HSPRN PRN PRN Reason: Insomnia
[2017-04-11] MEDS: Losartan Potassium 25 MG TAB PO SCH (15:06)
[2017-04-11] MEDS: Carvedilol 25 MG TAB PO SCH ×2 (15:07→20:55)
[2017-04-11] MEDS: Pentazocine HCl/Naloxone HCl 50/0.5 MG TAB PO PRN (20:54)
[2017-04-11] MEDS: Atorvastatin Calcium 10 MG TAB PO SCH (20:55)
[2017-04-12] MEDS: Dextrose 10% in Water 1,000 ML IV SCH ×3 (01:30→23:39)
[2017-04-12] MEDS: traMADol HCl 50 MG TAB PO PRN ×2 (03:49→11:18)
[2017-04-12] MEDS: Cyclobenzaprine 10 MG TAB PO PRN ×3 (03:49→22:37)
[2017-04-12 05:26] LABS: Hematocrit 36.2 % (36.0-47.0); Mean Platelet Volume 6.9 fL (7.4-10.4); Red Blood Cell (RBC) Count 3.75 mill/uL (4.20-5.40)
[2017-04-12] MEDS: Levothyroxine Sodium 125 MCG TAB PO SCH (05:51)
[2017-04-12] MEDS ORDERED: glyBURIDE 2.5 MG TAB PO SCH (09:00)
[2017-04-12] MEDS: Senokot S 8.6-50 MG TAB PO SCH ×2 (09:28→20:18)
[2017-04-12] MEDS: Multivitamin W/ Minerals 1 TAB PO SCH (09:28)
[2017-04-12] MEDS: metFORMIN 500 MG TAB PO SCH (09:29)
[2017-04-12] MEDS: Dronedarone HCl 400 MG TAB PO SCH ×2 (09:29→17:11)
[2017-04-12] MEDS: Apixaban 5 MG TAB PO SCH ×2 (09:29→20:18)
[2017-04-12] MEDS: Ferrous Gluconate 324 MG TAB PO SCH ×2 (09:29→20:18)
[2017-04-12] MEDS: Calcium Carbonate + Vit D 1 TAB PO SCH ×2 (09:29→20:18)
[2017-04-12] MEDS: Clopidogrel Bisulfate 75 MG TAB PO SCH (09:29)
--- NOTE | 2017-04-12 10:56 | PRG ---
DATE OF SERVICE: 04/12/2017 SUBJECTIVE: Flora is now postoperative day #4 from a left total knee arthroplasty. She is doing re latively well. We are waiting insurance preapproval for rehabilitation placement. Her activity leve l is still relatively low. She is ambulating approximately 80 feet twice a day. Her pain is relativ ade well controlled. OBJECTIVE: VITAL SIGNS: Temperature 98.1, pulse 64, respiration rate 20, blood pressure 151/61. GENERAL: She is alert and oriented to person, place, time, and situation. Incision is clean and ling sed without erythema, there is no strike through. EXTREMITIES: Neurovascularly intact in the left lower extremity. IMPRESSION: 1. A 76-year-old white female, postoperative day #4, left total knee arthroplasty, progressing slowl y. 2. Labile diabetes and glycemia. PLAN: Still awaiting placement at rehabilitation for physician oversight during her recovery phase d ue to her labile diabetes. We will recheck the patient tomorrow.
[2017-04-12] MEDS: Carvedilol 25 MG TAB PO SCH ×2 (11:19→20:18)
--- NOTE | 2017-04-12 12:47 | PDOC.PN ---
- Subjective Encounter Start Date: 04/12/17 Encounter Start Time: 08:00 Pt seen for followup re: diabetes mellitus. No complaints. - Objective Vital Signs & Weight: Vital Signs (12 hours) Temp Pulse Resp BP Pulse Ox 04/12/17 11:05 98.4 F 72 16 154/69 H 93 L 04/12/17 07:50 98.1 F 64 20 04/12/17 07:24 98 F 66 16 151/61 H 92 L 04/12/17 04:00 98.1 F 64 20 150/79 H 96 Weight Admit Weight 223 lb Weight 223 lb I&O: 04/11/17 04/12/17 04/13/17 06:59 06:59 06:59 Intake Total 1240 240 Output Total 1725 1150 Balance -485 -910 Result Diagrams: 04/12/17 05:04 04/09/17 15:34 Additional Labs: Accuchecks 04/12/17 04/12/17 04/12/17 11:05 03:54 00:01 POC Glucose 107 113 H 116 H 04/11/17 04/11/17 20:17 16:07 POC Glucose 144 H 123 H Phys Exam - Physical Examination Constitutional: NAD HEENT: moist MMs Neck: supple Respiratory: clear to auscultation bilateral Cardiovascular: RRR Gastrointestinal: soft Neurological: moves all 4 limbs Psychiatric: normal affect Dx/Plan (1) DM type 2 (diabetes mellitus, type 2) Status: Chronic (2) HLD (hyperlipidemia) Code(s): E78.5 - HYPERLIPIDEMIA, UNSPECIFIED Status: Chronic (3) HTN (hypertension) Code(s): I10 - ESSENTIAL (PRIMARY) HYPERTENSION Status: Chronic (4) Paroxysmal a-fib Code(s): I48.0 - PAROXYSMAL ATRIAL FIBRILLATION Status: Chronic (5) Coronary artery disease Code(s): I25.10 - ATHSCL HEART DISEASE OF [place] CORONARY ARTERY W/O ANG PCTRS Status: Chronic (6) Hypoglycemia Code(s): E16.2 - HYPOGLYCEMIA, UNSPECIFIED Status: Resolved - Plan * . Pt likely to be here through the weekend, will restart glyburide at a lower dose and continue accuchecks. Ambulate pt. Review of Systems - Review of Systems Cardiovascular: negative: Chest Pain, Palpitations, Orthopnea, Paroxysmal Noc. Dyspnea, Edema, Light Headedness - Medications/Allergies Allergies/Adverse Reactions: Allergies Allergy/AdvReac Type Severity Reaction Status Date / Time cephalexin monohydrate Allergy Severe Hives Verified 04/02/17 11:15 [From Keflex] aspartame Allergy Intermediate NAUSEA/VOMI Verified 09/10/16 13:48 TING codeine Allergy Intermediate HALLUCINATI Verified 04/02/17 11:15 ONS Penicillins Allergy Intermediate Hives Verified 04/02/17 11:15 garlic AdvReac INTERFERS Verified 09/10/16 13:48 WITH HER MEDS yovany AdvReac INTERFERS Verified 09/10/16 13:48 WITH HER MEDS Medications: Current Medications Acetaminophen (Tylenol) 650 mg PO Q4H PRN PRN Reason: [place]/ T > 101F; Mild Pain (1-3) Apixaban (Eliquis) 5 mg PO BID [facility] Last Admin: 04/12/17 09:29 Dose: 5 mg Atorvastatin Calcium (Lipitor) 10 mg PO HS [facility] Last Admin: 04/11/17 20:55 Dose: 10 mg Calcium/Vitamin D (Caltrate 600 + Vit D) 1 tab PO BID [facility] Last Admin: 04/12/17 09:29 Dose: 1 tab Carvedilol (Coreg) 25 mg PO 1200,2100 [facility] Last Admin: 04/12/17 11:19 Dose: 25 mg Clopidogrel Bisulfate (Plavix) 75 mg PO DAILY [facility] Last Admin: 04/12/17 09:29 Dose: 75 mg Cyclobenzaprine HCl (Flexeril) 10 mg PO TID PRN PRN Reason: Muscle Spasm Last Admin: 04/12/17 11:18 Dose: 10 mg Dextrose/Water (Dextrose 50%) 25 gm SLOW IVP PRN PRN PRN Reason: Hypoglycemia Last Admin: 04/09/17 22:02 Dose: 25 gm Diphenhydramine HCl (Benadryl) 25 mg PO Q6H PRN PRN Reason: Itching Dronedarone (Multaq) 400 mg PO BID[facility] Last Admin: 04/12/17 09:29 Dose: 400 mg Estropipate (Ogen) 0.75 mg PO DAILY [facility] Last Admin: 04/12/17 11:19 Dose: 0.75 mg Fentanyl (Sublimaze) 50 mcg IV Q1H PRN PRN Reason: BT PAIN Last Admin: 04/08/17 06:02 Dose: 50 mcg Ferrous Gluconate (Fergon) 324 mg PO BID [facility] Last Admin: 04/12/17 09:29 Dose: 324 mg Glucagon (Glucagon) 1 mg IM PRN PRN PRN Reason: Hypoglycemia Glyburide (Micronase) 2.5 mg PO 0730 [facility] Hydralazine HCl (Apresoline) 10 mg SLOW IVP Q6H PRN PRN Reason: SBP Greater Than 170 Ropivacaine 250 ml/ Device 250 mls @ 0 mls/hr NERVE BLCK INF [facility] PRN Reason: As Directed Last Admin: 04/09/17 13:58 Dose: 250 mls Dextrose/Water (D5w) 1,000 mls @ 0 mls/hr IV .Q0M PRN; As Directed PRN Reason: Hypoglycemia Last Admin: 04/09/17 22:02 Dose: 1,000 mls Dextrose/Water (Dextrose 10% In Water) 1,000 mls @ 100 mls/hr IV .Q10H [facility] Last Admin: 04/12/17 01:30 Dose: Not Given Iron/Minerals/Multivitamins (Theragran M) 1 tab PO DAILY [facility] Last Admin: 04/12/17 09:28 Dose: 1 tab Isosorbide Mononitrate (Imdur) 60 mg PO 0800 [facility] Last Admin: 04/12/17 09:28 Dose: 60 mg Levothyroxine Sodium (Synthroid) 125 mcg PO 0600 [facility] Last Admin: 04/12/17 05:51 Dose: 125 mcg Losartan Potassium (Cozaar) 100 mg PO 1500 [facility] Last Admin: 04/11/17 15:06 Dose: 100 mg Metformin HCl (Glucophage) 500 mg PO QAM-WM [facility] Last Admin: 04/12/17 09:29 Dose: 500 mg Ondansetron HCl (Zofran) 4 mg IVP Q6H PRN PRN Reason: Nausea/Vomiting Pentazocine HCl/Naloxone HCl (Talwin Nx) 1 tab PO Q6H PRN PRN Reason: Pain Last Admin: 04/11/17 20:54 Dose: 1 tab Promethazine HCl (Phenergan) 12.5 mg IM Q4H PRN PRN Reason: Nausea/Vomiting Senna/Docusate Sodium (Senokot S) 2 tab PO BID [facility] Last Admin: 04/12/17 09:28 Dose: 2 tab Sodium Chloride (Flush - Normal Saline) 10 ml IVF PRN PRN PRN Reason: Saline Flush Tramadol HCl (Ultram) 100 mg PO Q6H PRN PRN Reason: Severe Pain (7-10) Last Admin: 04/12/17 11:18 Dose: 100 mg Tramadol HCl (Ultram) 50 mg PO TID PRN PRN Reason: Moderate Pain (4-6) Last Admin: 04/11/17 16:03 Dose: 50 mg Zolpidem Tartrate (Ambien) 5 mg PO HSPRN PRN PRN Reason: Insomnia
[2017-04-12] MEDS: Losartan Potassium 25 MG TAB PO SCH (15:56)
[2017-04-12] MEDS: Atorvastatin Calcium 10 MG TAB PO SCH (20:18)
[2017-04-12] MEDS: Pentazocine HCl/Naloxone HCl 50/0.5 MG TAB PO PRN (22:37)
[2017-04-13 04:59] LABS: Hematocrit 35.9 % (36.0-47.0); Mean Platelet Volume 6.9 fL (7.4-10.4); Red Blood Cell (RBC) Count 3.73 mill/uL (4.20-5.40); White Blood Cell (WBC) Count 9.3 thou/uL (4.8-10.8)
[2017-04-13] MEDS: Levothyroxine Sodium 125 MCG TAB PO SCH (05:22)
[2017-04-13] MEDS: Apixaban 5 MG TAB PO SCH ×2 (08:22→21:24)
[2017-04-13] MEDS: Dronedarone HCl 400 MG TAB PO SCH ×2 (08:22→17:41)
[2017-04-13] MEDS: Senokot S 8.6-50 MG TAB PO SCH ×2 (08:22→21:24)
[2017-04-13] MEDS: metFORMIN 500 MG TAB PO SCH (08:22)
[2017-04-13] MEDS: Ferrous Gluconate 324 MG TAB PO SCH ×2 (08:22→21:23)
[2017-04-13] MEDS: Multivitamin W/ Minerals 1 TAB PO SCH (08:22)
[2017-04-13] MEDS: Clopidogrel Bisulfate 75 MG TAB PO SCH (08:22)
[2017-04-13] MEDS: Calcium Carbonate + Vit D 1 TAB PO SCH ×2 (08:22→21:22)
[2017-04-13] MEDS: glyBURIDE 2.5 MG TAB PO SCH (08:22)
[2017-04-13] MEDS: traMADol HCl 50 MG TAB PO PRN (09:24)
[2017-04-13] MEDS: Cyclobenzaprine 10 MG TAB PO PRN ×2 (09:26→21:24)
[2017-04-13] MEDS: Dextrose 10% in Water 1,000 ML IV SCH ×2 (09:49→19:40)
[2017-04-13] MEDS: Carvedilol 25 MG TAB PO SCH ×2 (11:59→21:22)
--- NOTE | 2017-04-13 13:54 | PDOC.PN ---
- Subjective Encounter Start Date: 04/13/17 Encounter Start Time: 09:00 Pt seen for followup re: DM2. No complaints today. - Objective MAR Reviewed: Yes Vital Signs & Weight: Vital Signs (12 hours) Temp Pulse Resp BP Pulse Ox 04/13/17 12:00 98.5 F 67 14 144/80 H 94 L 04/13/17 08:22 98.2 F 55 L 12 93 L 04/13/17 08:00 98.2 F 55 L 12 139/82 93 L 04/13/17 03:42 97.8 F 62 17 145/76 H 95 Weight Admit Weight 223 lb Weight 223 lb I&O: 04/12/17 04/13/17 04/14/17 06:59 06:59 06:59 Intake Total 240 1280 Output Total 1150 3200 Balance -910 -1920 Result Diagrams: 04/13/17 04:07 04/09/17 15:34 Additional Labs: Accuchecks 04/13/17 04/13/17 04/12/17 11:34 05:27 20:44 POC Glucose 106 135 H 140 H 04/12/17 15:38 POC Glucose 121 H Phys Exam - Physical Examination Obese HEENT: moist MMs Respiratory: clear to auscultation bilateral Cardiovascular: RRR Gastrointestinal: soft Neurological: moves all 4 limbs Psychiatric: normal affect Dx/Plan (1) DM type 2 (diabetes mellitus, type 2) Status: Chronic (2) HLD (hyperlipidemia) Code(s): E78.5 - HYPERLIPIDEMIA, UNSPECIFIED Status: Chronic (3) HTN (hypertension) Code(s): I10 - ESSENTIAL (PRIMARY) HYPERTENSION Status: Chronic (4) Paroxysmal a-fib Code(s): I48.0 - PAROXYSMAL ATRIAL FIBRILLATION Status: Chronic (5) Coronary artery disease Code(s): I25.10 - ATHSCL HEART DISEASE OF [place] CORONARY ARTERY W/O ANG PCTRS Status: Chronic (6) Hypoglycemia Code(s): E16.2 - HYPOGLYCEMIA, UNSPECIFIED Status: Resolved - Plan * . no recurrence of hypoglycemia. Glyburide started at dec Started on decreased dose (2.5 mg daily) yesterday. Likely for inpt rehab tomorrow. Review of Systems - Review of Systems Gastrointestinal: negative: Nausea, Vomiting, Abdominal Pain, Diarrhea, Constipation, Melena, Hematochezia - Medications/Allergies Allergies/Adverse Reactions: Allergies Allergy/AdvReac Type Severity Reaction Status Date / Time cephalexin monohydrate Allergy Severe Hives Verified 04/02/17 11:15 [From Keflex] aspartame Allergy Intermediate NAUSEA/VOMI Verified 09/10/16 13:48 TING codeine Allergy Intermediate HALLUCINATI Verified 04/02/17 11:15 ONS Penicillins Allergy Intermediate Hives Verified 04/02/17 11:15 garlic AdvReac INTERFERS Verified 09/10/16 13:48 WITH HER MEDS yovany AdvReac INTERFERS Verified 09/10/16 13:48 WITH HER MEDS Medications: Current Medications Acetaminophen (Tylenol) 650 mg PO Q4H PRN PRN Reason: SAUC[place]O/ T > 101F; Mild Pain (1-3) Apixaban (Eliquis) 5 mg PO BID [facility] Last Admin: 04/13/17 08:22 Dose: 5 mg Atorvastatin Calcium (Lipitor) 10 mg PO HS [facility] Last Admin: 04/12/17 20:18 Dose: 10 mg Calcium/Vitamin D (Caltrate 600 + Vit D) 1 tab PO BID [facility] Last Admin: 04/13/17 08:22 Dose: 1 tab Carvedilol (Coreg) 25 mg PO 1200,2100 [facility] Last Admin: 04/13/17 11:59 Dose: 25 mg Clopidogrel Bisulfate (Plavix) 75 mg PO DAILY [facility] Last Admin: 04/13/17 08:22 Dose: 75 mg Cyclobenzaprine HCl (Flexeril) 10 mg PO TID PRN PRN Reason: Muscle Spasm Last Admin: 04/13/17 09:26 Dose: 10 mg Dextrose/Water (Dextrose 50%) 25 gm SLOW IVP PRN PRN PRN Reason: Hypoglycemia Last Admin: 04/09/17 22:02 Dose: 25 gm Diphenhydramine HCl (Benadryl) 25 mg PO Q6H PRN PRN Reason: Itching Dronedarone (Multaq) 400 mg PO BID[facility] Last Admin: 04/13/17 08:22 Dose: 400 mg Estropipate (Ogen) 0.75 mg PO DAILY [facility] Last Admin: 04/13/17 08:22 Dose: 0.75 mg Fentanyl (Sublimaze) 50 mcg IV Q1H PRN PRN Reason: BT PAIN Last Admin: 04/08/17 06:02 Dose: 50 mcg Ferrous Gluconate (Fergon) 324 mg PO BID [facility] Last Admin: 04/13/17 08:22 Dose: 324 mg Glucagon (Glucagon) 1 mg IM PRN PRN PRN Reason: Hypoglycemia Glyburide (Micronase) 2.5 mg PO 0730 [facility] Last Admin: 04/13/17 08:22 Dose: 2.5 mg Hydralazine HCl (Apresoline) 10 mg SLOW IVP Q6H PRN PRN Reason: SBP Greater Than 170 Ropivacaine 250 ml/ Device 250 mls @ 0 mls/hr NERVE BLCK INF [facility] PRN Reason: As Directed Last Admin: 04/09/17 13:58 Dose: 250 mls Dextrose/Water (D5w) 1,000 mls @ 0 mls/hr IV .Q0M PRN; As Directed PRN Reason: Hypoglycemia Last Admin: 04/09/17 22:02 Dose: 1,000 mls Dextrose/Water (Dextrose 10% In Water) 1,000 mls @ 100 mls/hr IV .Q10H [facility] Last Admin: 04/13/17 09:49 Dose: Not Given Iron/Minerals/Multivitamins (Theragran M) 1 tab PO DAILY [facility] Last Admin: 04/13/17 08:22 Dose: 1 tab Isosorbide Mononitrate (Imdur) 60 mg PO 0800 [facility] Last Admin: 04/13/17 08:22 Dose: 60 mg Levothyroxine Sodium (Synthroid) 125 mcg PO 0600 [facility] Last Admin: 04/13/17 05:22 Dose: 125 mcg Losartan Potassium (Cozaar) 100 mg PO 1500 [facility] Last Admin: 04/12/17 15:56 Dose: 100 mg Metformin HCl (Glucophage) 500 mg PO QAM-WM [facility] Last Admin: 04/13/17 08:22 Dose: 500 mg Ondansetron HCl (Zofran) 4 mg IVP Q6H PRN PRN Reason: Nausea/Vomiting Pentazocine HCl/Naloxone HCl (Talwin Nx) 1 tab PO Q6H PRN PRN Reason: Pain Last Admin: 04/12/17 22:37 Dose: 1 tab Promethazine HCl (Phenergan) 12.5 mg IM Q4H PRN PRN Reason: Nausea/Vomiting Senna/Docusate Sodium (Senokot S) 2 tab PO BID [facility] Last Admin: 04/13/17 08:22 Dose: 2 tab Sodium Chloride (Flush - Normal Saline) 10 ml IVF PRN PRN PRN Reason: Saline Flush Tramadol HCl (Ultram) 100 mg PO Q6H PRN PRN Reason: Severe Pain (7-10) Last Admin: 04/13/17 09:24 Dose: 100 mg Tramadol HCl (Ultram) 50 mg PO TID PRN PRN Reason: Moderate Pain (4-6) Last Admin: 04/11/17 16:03 Dose: 50 mg Zolpidem Tartrate (Ambien) 5 mg PO HSPRN PRN PRN Reason: Insomnia
[2017-04-13] MEDS: Losartan Potassium 25 MG TAB PO SCH (15:09)
[2017-04-13] MEDS: Atorvastatin Calcium 10 MG TAB PO SCH (21:22)
[2017-04-13] MEDS: Pentazocine HCl/Naloxone HCl 50/0.5 MG TAB PO PRN (21:24)
[2017-04-14 05:15] LABS: Hematocrit 39.2 % (36.0-47.0); Mean Platelet Volume 6.8 fL (7.4-10.4); Red Blood Cell (RBC) Count 4.07 mill/uL (4.20-5.40); White Blood Cell (WBC) Count 9.2 thou/uL (4.8-10.8)
[2017-04-14] MEDS: Dextrose 10% in Water 1,000 ML IV SCH ×2 (05:19→16:32)
[2017-04-14] MEDS: Levothyroxine Sodium 125 MCG TAB PO SCH (05:51)
[2017-04-14] MEDS: glyBURIDE 2.5 MG TAB PO SCH (06:37)
[2017-04-14] MEDS: metFORMIN 500 MG TAB PO SCH (08:23)
[2017-04-14] MEDS: Dronedarone HCl 400 MG TAB PO SCH ×2 (08:23→20:12)
[2017-04-14] MEDS: traMADol HCl 50 MG TAB PO PRN (08:25)
[2017-04-14] MEDS: Cyclobenzaprine 10 MG TAB PO PRN (08:26)
[2017-04-14] MEDS: Calcium Carbonate + Vit D 1 TAB PO SCH (08:26)
[2017-04-14] MEDS: Apixaban 5 MG TAB PO SCH (08:26)
[2017-04-14] MEDS: Clopidogrel Bisulfate 75 MG TAB PO SCH (08:27)
[2017-04-14] MEDS: Ferrous Gluconate 324 MG TAB PO SCH (08:27)
[2017-04-14] MEDS: Multivitamin W/ Minerals 1 TAB PO SCH (08:27)
[2017-04-14] MEDS: Senokot S 8.6-50 MG TAB PO SCH (08:27)
[2017-04-14] MEDS: Carvedilol 25 MG TAB PO SCH (12:35)
--- NOTE | 2017-04-14 14:24 | PDOC.PN ---
- Subjective Encounter Start Date: 04/14/17 Encounter Start Time: 08:00 Pt seen for followup re: diabetes mellitus. Feels well, no complaints. - Objective MAR Reviewed: Yes Vital Signs & Weight: Vital Signs (12 hours) Temp Pulse Resp BP Pulse Ox 04/14/17 11:10 98.3 F 67 20 134/74 94 L 04/14/17 07:25 98.4 F 63 16 156/72 H 94 L 04/14/17 04:44 98.1 F 63 16 123/72 92 L 04/14/17 04:30 95 Weight Admit Weight 223 lb Weight 223 lb I&O: 04/13/17 04/14/17 04/15/17 06:59 06:59 06:59 Intake Total 1280 2145 Output Total 3200 Balance -1920 2145 Result Diagrams: 04/14/17 04:38 04/09/17 15:34 Additional Labs: Accuchecks 04/14/17 04/14/17 04/13/17 11:13 06:21 21:08 POC Glucose 94 169 H 131 H 04/13/17 15:55 POC Glucose 101 Phys Exam - Physical Examination Obese HEENT: moist MMs Neck: supple Respiratory: clear to auscultation bilateral Cardiovascular: RRR Neurological: moves all 4 limbs Psychiatric: normal affect Skin: no rash Dx/Plan (1) DM type 2 (diabetes mellitus, type 2) Status: Chronic (2) HLD (hyperlipidemia) Code(s): E78.5 - HYPERLIPIDEMIA, UNSPECIFIED Status: Chronic (3) HTN (hypertension) Code(s): I10 - ESSENTIAL (PRIMARY) HYPERTENSION Status: Chronic (4) Paroxysmal a-fib Code(s): I48.0 - PAROXYSMAL ATRIAL FIBRILLATION Status: Chronic (5) Coronary artery disease Code(s): I25.10 - ATHSCL HEART DISEASE OF [place] CORONARY ARTERY W/O ANG PCTRS Status: Chronic (6) Hypoglycemia Code(s): E16.2 - HYPOGLYCEMIA, UNSPECIFIED Status: Resolved - Plan * . No overnight hypoglycemia. Continue glyburide 2.5 mg daily, continue insulin sliding scale and accuchecks. Monitor vital signs and titrate antihypertensives as needed. Pt awaiting Rehab bed. Review of Systems - Review of Systems Respiratory: negative: Cough, Dry, Shortness of Breath, Hemoptysis, SOB with Excertion, Pleuritic Pain, Sputum, Wheezing Cardiovascular: negative: Chest Pain, Palpitations, Orthopnea, Paroxysmal Noc. Dyspnea, Edema, Light Headedness Neurological: negative: Weakness, Numbness, Incoordination, Change in Speech, Confusion, Seizures - Medications/Allergies Allergies/Adverse Reactions: Allergies Allergy/AdvReac Type Severity Reaction Status Date / Time cephalexin monohydrate Allergy Severe Hives Verified 04/02/17 11:15 [From Keflex] aspartame Allergy Intermediate NAUSEA/VOMI Verified 09/10/16 13:48 TING codeine Allergy Intermediate HALLUCINATI Verified 04/02/17 11:15 ONS Penicillins Allergy Intermediate Hives Verified 04/02/17 11:15 garlic AdvReac INTERFERS Verified 09/10/16 13:48 WITH HER MEDS yovany AdvReac INTERFERS Verified 09/10/16 13:48 WITH HER MEDS Medications: Current Medications Acetaminophen (Tylenol) 650 mg PO Q4H PRN PRN Reason: [place]/ T > 101F; Mild Pain (1-3) Apixaban (Eliquis) 5 mg PO BID [facility] Last Admin: 04/14/17 08:26 Dose: 5 mg Atorvastatin Calcium (Lipitor) 10 mg PO HS [facility] Last Admin: 04/13/17 21:22 Dose: 10 mg Calcium/Vitamin D (Caltrate 600 + Vit D) 1 tab PO BID [facility] Last Admin: 04/14/17 08:26 Dose: 1 tab Carvedilol (Coreg) 25 mg PO 1200,2100 [facility] Last Admin: 04/14/17 12:35 Dose: 25 mg Clopidogrel Bisulfate (Plavix) 75 mg PO DAILY [facility] Last Admin: 04/14/17 08:27 Dose: 75 mg Cyclobenzaprine HCl (Flexeril) 10 mg PO TID PRN PRN Reason: Muscle Spasm Last Admin: 04/14/17 08:26 Dose: 10 mg Dextrose/Water (Dextrose 50%) 25 gm SLOW IVP PRN PRN PRN Reason: Hypoglycemia Last Admin: 04/09/17 22:02 Dose: 25 gm Diphenhydramine HCl (Benadryl) 25 mg PO Q6H PRN PRN Reason: Itching Dronedarone (Multaq) 400 mg PO BID[facility] Last Admin: 04/14/17 08:23 Dose: 400 mg Estropipate (Ogen) 0.75 mg PO DAILY [facility] Last Admin: 04/14/17 08:26 Dose: 0.75 mg Fentanyl (Sublimaze) 50 mcg IV Q1H PRN PRN Reason: BT PAIN Last Admin: 04/08/17 06:02 Dose: 50 mcg Ferrous Gluconate (Fergon) 324 mg PO BID [facility] Last Admin: 04/14/17 08:27 Dose: 324 mg Glucagon (Glucagon) 1 mg IM PRN PRN PRN Reason: Hypoglycemia Glyburide (Micronase) 2.5 mg PO 0730 [facility] Last Admin: 04/14/17 06:37 Dose: 2.5 mg Hydralazine HCl (Apresoline) 10 mg SLOW IVP Q6H PRN PRN Reason: SBP Greater Than 170 Ropivacaine 250 ml/ Device 250 mls @ 0 mls/hr NERVE BLCK INF [facility] PRN Reason: As Directed Last Admin: 04/09/17 13:58 Dose: 250 mls Dextrose/Water (D5w) 1,000 mls @ 0 mls/hr IV .Q0M PRN; As Directed PRN Reason: Hypoglycemia Last Admin: 04/09/17 22:02 Dose: 1,000 mls Dextrose/Water (Dextrose 10% In Water) 1,000 mls @ 100 mls/hr IV .Q10H [facility] Last Admin: 04/14/17 05:19 Dose: Not Given Iron/Minerals/Multivitamins (Theragran M) 1 tab PO DAILY [facility] Last Admin: 04/14/17 08:27 Dose: 1 tab Isosorbide Mononitrate (Imdur) 60 mg PO 0800 [facility] Last Admin: 04/14/17 08:23 Dose: 60 mg Levothyroxine Sodium (Synthroid) 125 mcg PO 0600 [facility] Last Admin: 04/14/17 05:51 Dose: 125 mcg Losartan Potassium (Cozaar) 100 mg PO 1500 [facility] Last Admin: 04/13/17 15:09 Dose: 100 mg Metformin HCl (Glucophage) 500 mg PO QAM-WM [facility] Last Admin: 04/14/17 08:23 Dose: 500 mg Ondansetron HCl (Zofran) 4 mg IVP Q6H PRN PRN Reason: Nausea/Vomiting Pentazocine HCl/Naloxone HCl (Talwin Nx) 1 tab PO Q6H PRN PRN Reason: Pain Last Admin: 04/13/17 21:24 Dose: 1 tab Promethazine HCl (Phenergan) 12.5 mg IM Q4H PRN PRN Reason: Nausea/Vomiting Senna/Docusate Sodium (Senokot S) 2 tab PO BID [facility] Last Admin: 04/14/17 08:27 Dose: 2 tab Sodium Chloride (Flush - Normal Saline) 10 ml IVF PRN PRN PRN Reason: Saline Flush Tramadol HCl (Ultram) 100 mg PO Q6H PRN PRN Reason: Severe Pain (7-10) Last Admin: 04/14/17 08:25 Dose: 100 mg Tramadol HCl (Ultram) 50 mg PO TID PRN PRN Reason: Moderate Pain (4-6) Last Admin: 04/11/17 16:03 Dose: 50 mg Zolpidem Tartrate (Ambien) 5 mg PO HSPRN PRN PRN Reason: Insomnia
[2017-04-14] MEDS: Losartan Potassium 25 MG TAB PO SCH (15:27)
[2017-04-14 16:15] VITALS: BP 132/67; TEMP 98.6
--- NOTE | 2017-04-15 08:44 | PDOC.EVN ---
Event Note - Event Note Event Note: Noted patient was discharged home yesterday. Called pt today and advised her to take 2.5 mg Glyburide daily. She told me she was going to get a glucometer and check blood sugars. Advised her to keep a record of readings and followup with PCP.
== END 2017-04-14 17:06 | disposition home or self-care (01) | DRG 470 ==
LOC: SJJU 04-07 05:28
PROVIDERS: ADMIT Orthopaedic Surgery; ATTEND Orthopaedic Surgery
PROC: 0SRD0J9 Replacement of Left Knee Joint with Synthetic Substitute, Cemented, Open Approach (ICD-10-PCS; principal; 2017-04-10)
PROC: 3E0T3BZ Introduction of Anesthetic Agent into Peripheral Nerves and Plexi, Percutaneous Approach (ICD-10-PCS; 2017-04-10)
DX: M17.12 Unilateral primary osteoarthritis, left knee (principal); E11.649 Type 2 diabetes mellitus with hypoglycemia without coma; I48.0 Paroxysmal atrial fibrillation; I10 Essential (primary) hypertension; I25.10 Atherosclerotic heart disease of native coronary artery without angina pectoris; M24.562 Contracture, left knee; E78.5 Hyperlipidemia, unspecified; E66.9 Obesity, unspecified; Z68.38 Body mass index [BMI] 38.0-38.9, adult; Z96.651 Presence of right artificial knee joint; Z95.1 Presence of aortocoronary bypass graft; Z95.5 Presence of coronary angioplasty implant and graft; Z88.1 Allergy status to other antibiotic agents; Z88.5 Allergy status to narcotic agent; Z88.0 Allergy status to penicillin; Z91.018 Allergy to other foods
CPT/HCPCS: 36415; 36416; 80048; 85027; 85610; C1713; C1776; G8978-GP-CL; G8979-GP-CJ; G8987-GO-CL; G8988-GO-CJ; J1885; J2001; J2250; J2405; J2704; J2795; J2920; J2930; J3010; J3370; J3490; J7050; S0020

== ENCOUNTER 2017-06-30 11:36 | Inpatient (IN) | payer MEDICARE ==
[2017-06-30 12:43] LABS: Bilirubin Small (Negative); Blood, Urine Negative (Negative); Clarity CLEAR (Clear); Glucose, Urine (Dipstick) Negative (Negative); Leukocyte Negative (Negative); Nitrite Negative (Negative); Protein, Urine (Dipstick) Negative (Neg-Trace); Specific Gravity, Urine 1.018 (1.002-1.036); pH, Urine 5.5 (5.0-9.0)
--- NOTE | 2017-06-30 13:02 | CT ---
NONCONTRAST CT HEAD: 06/30/2017 HISTORY: Confusion and dizziness. Altered mental status. COMPARISON: None available. FINDINGS: Scattered areas of decreased attenuation are seen in the periventricular white matter, likely reflect isabel of chronic small vessel ischemic change. Low density focus is seen in the left basal ganglia. There is no evidence of an acute cortical infarc tion, hemorrhage, mass effect, or midline shift. There is mild cerebral and cerebellar volume loss. The ventricular system is normal in size, shape, and position for the degree of sulcal atrophy. The visualized paranasal sinuses and mastoid air cells are clear. Calvarial structures are intact. Dense vascular calcifications are seen in the carotid siphons and in the distal vertebral arteries. IMPRESSION: 1. No acute intracranial abnormality is demonstrated. However, there is a low density focus in the l eft basal ganglia related to lacunar infarction of indeterminate age. 2. Chronic small vessel ischemic changes and cerebral volume loss. POS: BATSHEVA
[2017-06-30 15:11] LABS: #Eosinphils 0.2 thou/uL (0.0-0.7); #Lymphocytes 2.3 thou/uL (1.20-3.40); #Monocytes 0.8 thou/uL (0.11-0.59); #Neutrophils 7.7 thou/uL (1.40-6.50); %Basophils 0.1 % (0.0-1.0); %Eosinophils 1.7 % (0.0-10.0); %Lymphocytes 20.7 % (21.0-51.0); %Monocytes 7.7 % (0.0-10.0); Hemoglobin 13.4 g/dL (12.0-16.0); Mean Corpuscular Hemoglobin 30.6 pg (27.0-31.0); Mean Corpuscular Volume 92.6 fl (81.0-99.0); Mean Platelet Volume 6.3 fL (7.4-10.4); Platelet Count 374 thou/uL (130-400); RBC Distribution Width 13.3 % (11.5-14.5); Red Blood Cell (RBC) Count 4.38 mill/uL (4.20-5.40)
[2017-06-30 15:30] LABS: CKMB 2.3 ng/mL (0-6.6); Troponin I 0.017 ng/mL (< 0.028)
[2017-06-30 15:35] LABS: ALT (SGPT) 73 U/L (8-55); AST (SGOT) 41 U/L (5-34); Albumin 3.5 g/dL (3.4-4.8); Alkaline Phosphatase 158 U/L (40-150); Anion Gap 15 mmol/L (10-20); BUN (Urea Nitrogen) 9 mg/dL (9.8-20.1); Bilirubin, Total 0.7 mg/dL (0.2-1.2); CK (CPK) 37 U/L (29-168); Calc. Creatinine Clearance 0 mL/min (70-130); Calcium 9.4 mg/dL (7.8-10.44); Carbon Dioxide 24 mmol/L (23-31); Chloride 103 mmol/L (98-107); Estimated GFR-MDRD 64; Glucose 60 mg/dL (83-110); Potassium 4.1 mmol/L (3.5-5.1); Protein, Total 7.5 g/dL (6.0-8.3); Sodium 138 mmol/L (136-145)
[2017-06-30] MEDS ORDERED: Loratadine 10 MG TAB PO PRN (17:14)
[2017-06-30] MEDS ORDERED: HumaLOG 300 UNITS/3 ML VIAL SC PRN ×2 (17:14)
[2017-06-30] MEDS ORDERED: Dextrose 5% in Water 1,000 ML IV PRN (17:14)
[2017-06-30] MEDS ORDERED: Senokot 8.6 MG TAB PO PRN (17:14)
[2017-06-30] MEDS ORDERED: Diabetic Tussin 200 MG/10 ML UDCUP PO PRN (17:14)
[2017-06-30] MEDS ORDERED: Nitroglycerin 0.4 MG TAB (25 Tab Bottle) SL PRN (17:14)
[2017-06-30] MEDS ORDERED: Lorazepam 1 MG TAB PO PRN (17:14)
[2017-06-30] MEDS ORDERED: Dextrose 50% Abboject 50 ML SYRINGE SLOW IVP PRN (17:14)
[2017-06-30] MEDS ORDERED: Mag-Al 1200 mg/1200 mg/30 ML UDCUP PO PRN (17:14)
[2017-06-30] MEDS ORDERED: Benzonatate 100 MG CAP PO PRN (17:14)
[2017-06-30] MEDS ORDERED: Calcium Carbonate 500 MG ChewTAB PO PRN (17:14)
[2017-06-30] MEDS ORDERED: Bisacodyl 5 MG TAB PO PRN (17:14)
[2017-06-30] MEDS ORDERED: hydrALAZINE 20 MG/ML VIAL SLOW IVP PRN (17:14)
--- NOTE | 2017-06-30 17:25 | HP ---
DATE OF ADMISSION: 06/30/2017 PRIMARY CARE PHYSICIAN: Taylor Tanner, Nurse Practitioner. PRIMARY RADIAL ARM SAW OPERATOR: Owen Cheatham M.D. CHIEF COMPLAINT: Altered mental status, transient. HISTORY OF PRESENTING ILLNESS: Ms. Anthony is a pleasant 76-year-old female with past medic al history of diabetes, hypertension, paroxysmal atrial fibrillation and coronary artery disease, who presented to the emergency room with the above-mentioned complaint. History is mainly obtained by t he patient herself and electronic medical records have been reviewed. Case has been discussed with a dmitting ER physician, Dr. Bravo. Ms. Anthony reports that she has been in her usual health up until this morning. All of a sudden whil e moving around in the house when she went into the kitchen, she forgot where she is and what she was supposed to do. For the next few hours, she continued to move around from room to room and could no t remember where she was and what her house address was and where is she going. Eventually, she was able to look up at one of her mail envelops and figured out her home address and called EMS. All of this time, she did not lose consciousness. She did not have any nausea, vomiting, dizziness. Her sy mptoms quickly resolved by the time she was brought into the emergency room. She denies any recent i llnesses. She does endorse some right upper quadrant and epigastric pain starting in the epigastrium traversing to her right upper quadrant, going to her right back. This has been going on for about 2 weeks. She has known history of gallbladder stones. Denies any fever, chills, nausea, vomiting, di arrhea, otherwise. No hematochezia or melena. No chest pain or palpitations. She is compliant with her medications. Upon presentation to the emergency room, she was hemodynamically stable. Her general workup revealed mildly elevated liver enzymes. She underwent a CT scan, which was concerning for age indeterminate lacunar infarction and for this reason she is being admitted for further workup and rule out a cerebr ovascular accident. The patient denies any muscle weakness, paraesthesias, any problem with her spee ch or swallowing. PAST MEDICAL HISTORY: 1. History of atrial fibrillation on chronic anticoagulation. 2. Diabetes mellitus, type 2. 3. Hypothyroidism. 4. Hypertension. 5. Coronary artery disease, status post 2 vessel CABG in 2005 and also stent placement in 2017. PAST SURGICAL HISTORY: 1. CABG. 2. Cardiac stenting. 3. Bilateral knee replacement. 4. Hysterectomy. PSYCHIATRIC HISTORY: No anxiety, no depression. SOCIAL HISTORY: She lives largely by herself, but her family is close by. No history of drug, tobac co or alcohol abuse. She moves around with the help of a walker. FAMILY HISTORY: No significant family history of premature coronary artery disease or stroke as far as she could tell. ALLERGIES: Include KEFLEX, PENICILLIN and CODEINE. CURRENT MEDICATIONS: As follows: 1. Losartan 50 mg daily. 2. Plavix 75 mg daily. 3. Estropipate 0.75 mg daily. 4. Levothyroxine 125 mcg daily. 5. Eliquis 5 mg b.i.d. 6. Metformin 500 p.o. b.i.d. 7. Carvedilol 25 mg p.o. b.i.d. 8. Simvastatin 20 mg daily. 9. Isosorbide mononitrate 60 mg daily. 10. Glyburide 5 mg daily. 11. Tramadol 50 mg t.i.d. 12. Cyclobenzaprine as needed. 13. Multaq 400 mg b.i.d. REVIEW OF SYSTEMS: The following complete review of systems was negative, unless otherwise mentioned in the HPI or below: Constitutional: Weight loss or gain, ability to conduct usual activities. Skin: Rash, itching. Eyes: Double vision, pain. ENT/Mouth: Nose bleeding, neck stiffness, pain, tenderness. Cardiovascular: Palpitations, dyspnea on exertion, orthopnea. Respiratory: Shortness of breath, wheezing, cough, hemoptysis, fever or night sweats. Gastrointestinal: Poor appetite, abdominal pain, heartburn, nausea, vomiting, constipation, or diarr hea. Genitourinary: Urgency, frequency, dysuria, nocturia. Musculoskeletal: Pain, swelling. Neurologic/Psychiatric: Anxiety, depression. Allergy/Immunologic: Skin rash, bleeding tendency. It is negative except for those mentioned in the history and physical. LABORATORY DATA: Her CBC shows WBCs at 11.0 with 70% neutrophils. Serum chemistries show blood suga r of 60, AST 41, ALT 73, alkaline phosphatase 158 with normal total bilirubin. Cardiac enzymes are u nremarkable. Urinalysis is negative. CT scan of the brain by my review shows age indeterminate lacu mariano infarction in the left basal ganglia and chronic small vessel ischemic changes. EKG reviewed by myself shows sinus bradycardia with first degree AV block at 53 beats per minute. PHYSICAL EXAMINATION: VITAL SIGNS: Upon presentation, blood pressure 152/68, pulse of 58, respirations 16, saturating 99% on room air, temperature 97.4. GENERAL: No acute distress, awake, alert, oriented x3. The patient has unintentional tremors involv ing mostly her face, head and upper extremities. HEENT: Mucous membrane is moist and pink. No oropharyngeal exudate or erythema. Head is normocepha lic, atraumatic. Pupils are equal, reactive to light and accommodation. Extraocular movement intact . NECK: Supple without any lymphadenopathy, JVD or bruit. CHEST: Clear to auscultation without any wheezing, rales or rhonchi. Rate and rhythm is regular wit hout any murmur, rubs or gallops. ABDOMEN: Soft, nontender, nondistended, obese. EXTREMITIES: Free of any cyanosis, clubbing, or edema. NEUROLOGIC: Largely nonfocal. SKIN: Free of any rashes or bruises. Feels warm and dry to touch. PSYCHIATRIC: Awake, alert, oriented x3. Normal affect. IMPRESSION AND PLAN: 1. Altered mental status. This is most likely secondary to recent lacunar infarction. Workup as ou tlined in #2. 2. Cerebrovascular accident. The patient has age indeterminate lacunar infarction. At this time, daren jimenez will admit her for further workup including MRI of the brain, as well as transthoracic echocardiogr am and carotid Doppler ultrasound. We will add aspirin and continue her Plavix and Eliquis for now, especially given her history of atrial fibrillation. We will consult Neurology for further recommend ations and she will be evaluated by stroke team as well. Further management will depend upon her cli nical course. Most likely this is hypertensive versus ischemic stroke. Possibility of embolic lo e is very less as the patient is on chronic anticoagulation. 3. Elevated liver enzymes. The patient seems to be having gallbladder colic at this time. We will go ahead and obtain a right upper quadrant ultrasound. Her clinical signs and symptoms do not sugges t active cholecystitis at this time. No indication for antibiotics. We will repeat the liver enzyme s in the morning. 4. History of atrial fibrillation. Continue with Eliquis. She is currently rate controlled on Mult aq and beta praveen. 5. Hypertension. Restart her Coreg, losartan, and isosorbide. 6. History of coronary artery disease status post CABG and stenting. She is currently asymptomatic. We will resume her Plavix and Eliquis along with beta praveen, ARB, and statins. 7. Diabetes mellitus, type 2. We will start her on insulin sliding scale and avoid metformin while she is in here. 8. Dyslipidemia. Resume statin. 9. Code status: FULL CODE. Discussed with the patient. 10. Add deep venous thrombosis and gastrointestinal prophylaxes with sequential compression devices and proton pump inhibitor. DISPOSITION: Ms. Anthony is currently being admitted for further workup for altered mental status, wh ich can possibly be secondary to recent lacunar infarction. Further management will depend upon her clinical course. Estimated length of stay at this time is less than 2 midnights.
[2017-06-30] MEDS ORDERED: Carvedilol 25 MG TAB PO SCH (17:45)
[2017-06-30] MEDS ORDERED: Dronedarone HCl 400 MG TAB PO SCH (18:00)
[2017-06-30] MEDS: Apixaban 5 MG TAB PO SCH (18:39)
[2017-06-30 18:41] VITALS: BMI 39.0
--- NOTE | 2017-06-30 18:59 | ULT ---
ULTRASOUND CAROTID DOPPLER: History: CVA. Comparison: None. FINDINGS: Moderate atherosclerotic plaque of both carotid bulbs. Antegrade flow of both vertebral arteries. No elevated peak systolic velocities within the internal carotid arteries. Right ICA/CCA ratio is 0.44 and left ICA/CCA ratio is 0.84. IMPRESSION: No hemodynamically significant stenosis. POS: [facility]
[2017-06-30] MEDS: Simvastatin 20 MG TAB PO SCH (20:24)
[2017-07-01 05:45] LABS: #Eosinphils 0.2 thou/uL (0.0-0.7); #Lymphocytes 2.7 thou/uL (1.20-3.40); #Monocytes 0.8 thou/uL (0.11-0.59); #Neutrophils 5.2 thou/uL (1.40-6.50); %Basophils 0.3 % (0.0-1.0); %Eosinophils 2.6 % (0.0-10.0); %Lymphocytes 30.2 % (21.0-51.0); %Neutrophils 57.9 % (42.0-75.0); Hemoglobin 12.1 g/dL (12.0-16.0); Mean Corpuscular Hemoglobin 30.4 pg (27.0-31.0); Mean Corpuscular Volume 92.2 fl (81.0-99.0); Mean Platelet Volume 6.5 fL (7.4-10.4); Platelet Count 368 thou/uL (130-400); RBC Distribution Width 13.2 % (11.5-14.5); Red Blood Cell (RBC) Count 3.96 mill/uL (4.20-5.40)
[2017-07-01] MEDS: Levothyroxine Sodium 125 MCG TAB PO SCH (05:56)
[2017-07-01 06:03] LABS: Anion Gap 12 mmol/L (10-20); BUN (Urea Nitrogen) 8 mg/dL (9.8-20.1); Calc. Creatinine Clearance 82 mL/min (70-130); Calcium 9.2 mg/dL (7.8-10.44); Carbon Dioxide 27 mmol/L (23-31); Chloride 101 mmol/L (98-107); Estimated GFR-MDRD 59; Glucose 120 mg/dL (83-110); Potassium 3.8 mmol/L (3.5-5.1); Sodium 136 mmol/L (136-145)
[2017-07-01] MEDS ORDERED: glyBURIDE 5 MG TAB PO SCH (08:00)
--- NOTE | 2017-07-01 08:05 | ULT ---
RIGHT UPPER QUADRANT ULTRASOUND: Date: 07/01/17 HISTORY: Gallbladder colic, right upper quadrant pain, gallstones, constipation. FINDINGS: The liver demonstrates homogeneous echotexture without focal mass or intrahepatic ductal dilatation. There are multiple gallstones and sludge with gallbladder wall thickening measuring 4.0 mm in thickne ss. No pericholecystic fluid is seen. The common duct measures 3.0 mm in diameter. Right kidney and v isualized portions of the pancreas are unremarkable. No free fluid is seen in Morison's pouch. IMPRESSION: Cholelithiasis with gallbladder sludge and wall thickening. POS: [facility]
[2017-07-01] MEDS ORDERED: Losartan 25 MG TAB PO SCH (09:00)
[2017-07-01] MEDS: Carvedilol 25 MG TAB PO SCH ×4 (09:43→16:47)
[2017-07-01] MEDS: Dronedarone HCl 400 MG TAB PO SCH ×2 (09:44→16:40)
[2017-07-01] MEDS: Apixaban 5 MG TAB PO SCH (09:44)
[2017-07-01] MEDS: Aspirin 81 mg Enteric Coated Tablet PO SCH (09:57)
[2017-07-01] MEDS: Clopidogrel Bisulfate 75 MG TAB PO SCH (09:57)
[2017-07-01] MEDS: Ondansetron HCl/PF 4 MG/2 ML Vial IVP PRN ×2 (11:47→18:28)
[2017-07-01] MEDS: Acetaminophen 325 MG TAB PO PRN ×2 (11:47→14:06)
--- NOTE | 2017-07-01 12:08 | PDOC.PN ---
- Subjective Encounter Start Date: 07/01/17 Encounter Start Time: 12:06 Subjective: Nauseated.still w significant RUQ-Abd pain. -: mentation improved.no more episodic confusion - Objective MAR Reviewed: Yes Vital Signs & Weight: Vital Signs (12 hours) Temp Pulse Pulse Resp BP BP Pulse Ox 07/01/17 08:08 68 144/67 H 07/01/17 08:00 98.7 F 63 22 H 144/67 H 96 07/01/17 04:00 98.4 F 70 20 119/53 L 95 Weight Admit Weight 227 lb 6.4 oz Weight 227 lb 6.4 oz I&O: 06/30/17 07/01/17 07/02/17 06:59 06:59 06:59 Intake Total 580 Output Total 950 Balance -370 Result Diagrams: 07/01/17 04:51 07/01/17 04:51 Additional Labs: Accuchecks 07/01/17 06/30/17 06/30/17 05:54 23:23 21:05 POC Glucose 123 H 108 105 06/30/17 06/30/17 18:37 16:21 POC Glucose 57 L* 84 Phys Exam - Physical Examination uncomfortable HEENT: PERRLA, moist MMs, sclera anicteric, oral pharynx no lesions Neck: no nodes, no JVD, supple, full ROM Respiratory: no wheezing, no rales, no rhonchi, clear to auscultation bilateral Cardiovascular: RRR, no significant murmur Gastrointestinal: soft, no distention, positive bowel sounds RUQ-tenderness Musculoskeletal: no edema, pulses present Neurological: non-focal, normal sensation, moves all 4 limbs Psychiatric: normal affect, A&O x 3 Skin: no rash Dx/Plan (1) TIA (transient ischemic attack) Status: Acute (2) Colic, biliary Code(s): K80.50 - CALCULUS OF BILE DUCT W/O CHOLANGITIS OR CHOLECYST W/O OBST Status: Acute (3) Coronary artery disease Code(s): I25.10 - ATHSCL HEART DISEASE OF [place] CORONARY ARTERY W/O ANG PCTRS Status: Chronic Comment: on Plavix (4) DM type 2 (diabetes mellitus, type 2) Status: Chronic (5) HLD (hyperlipidemia) Code(s): E78.5 - HYPERLIPIDEMIA, UNSPECIFIED Status: Chronic (6) HTN (hypertension) Code(s): I10 - ESSENTIAL (PRIMARY) HYPERTENSION Status: Chronic (7) Paroxysmal a-fib Code(s): I48.0 - PAROXYSMAL ATRIAL FIBRILLATION Status: Chronic Comment: on Eliquis - Plan out of bed/ambulate, DVT proph w/SCDs will consult GS.may need cholecystectomy.no clear cholecystitis. -: MRI & ECHO pending.cont ASA for now.If MRI -ve,stop ASA -: also on plavix for CAD & Eliquis for a-fib.rate controlled -: add prn morphine for pain control -: am labs * . Review of Systems - Review of Systems Constitutional: weakness, malaise ENT: negative: Ear Pain, Ear Discharge, Nose Pain, Nose Discharge, Nose Congestion, Mouth Pain, Mouth Swelling, Throat Pain, Throat Swelling, Other Respiratory: negative: Cough, Dry, Shortness of Breath, Hemoptysis, SOB with Excertion, Pleuritic Pain, Sputum, Wheezing Cardiovascular: negative: chest pain, palpitations, orthopnea, paroxysmal nocturnal dyspnea, edema, light headedness, other Gastrointestinal: Nausea, Vomiting, Abdominal Pain Genitourinary: negative: Dysuria, Frequency, Incontinence, Hematuria, Retention , Other Musculoskeletal: negative: Neck Pain, Shoulder Pain, Arm Pain, Back Pain, Hand Pain, Leg Pain, Foot Pain, Other Skin: negative: Rash, Lesions, Wing, Bruising, Other Neurological: negative: Weakness, Numbness, Incoordination, Change in Speech, Confusion, Seizures, Other - Medications/Allergies Allergies/Adverse Reactions: Allergies Allergy/AdvReac Type Severity Reaction Status Date / Time cephalexin monohydrate Allergy Severe Hives Verified 04/02/17 11:15 [From Keflex] codeine Allergy Intermediate HALLUCINATI Verified 04/02/17 11:15 ONS Penicillins Allergy Intermediate Hives Verified 04/02/17 11:15 garlic AdvReac INTERFERS Verified 09/10/16 13:48 WITH HER MEDS yovany AdvReac INTERFERS Verified 09/10/16 13:48 WITH HER MEDS Medications: Current Medications Acetaminophen (Tylenol) 650 mg PO Q4H PRN PRN Reason: Headache/Fever or Pain Last Admin: 07/01/17 11:47 Dose: 650 mg Al Hydroxide/Mg Hydroxide (Maalox) 30 ml PO Q6H PRN PRN Reason: Heartburn or Indigestion Apixaban (Eliquis) 5 mg PO BID [facility] Last Admin: 07/01/17 09:44 Dose: 5 mg Aspirin (Ecotrin) 81 mg PO DAILY [facility] Last Admin: 07/01/17 09:57 Dose: 81 mg Benzonatate (Tessalon) 100 mg PO Q4H PRN PRN Reason: Cough Bisacodyl (Dulcolax) 10 mg PO DAILYPRN PRN PRN Reason: Constipation Last Admin: 07/01/17 06:00 Dose: 10 mg Calcium Carbonate (Tums) 1,000 mg PO Q4H PRN PRN Reason: Heartburn or Indigestion [facility] Last Admin: 07/01/17 09:43 Dose: 25 mg Clopidogrel Bisulfate (Plavix) 75 mg PO DAILY [facility] Last Admin: 07/01/17 09:57 Dose: 75 mg Dextrose/Water (Dextrose 50%) 25 gm SLOW IVP PRN PRN PRN Reason: Hypoglycemia [facility]ronedarone ([facility]aq) [facility] Last Admin: 07/01/17 09:44 Dose: 400 mg Estropipate (Ogen) 0.75 mg PO DAILY [facility] Last Admin: 07/01/17 11:31 Dose: Not Given Glucagon (Glucagon) 1 mg IM PRN PRN PRN Reason: Hypoglycemia Guaifenesin (Robitussin Sf) 200 mg PO Q4H PRN PRN Reason: Cough Hydralazine HCl (Apresoline) 10 mg SLOW IVP Q4H PRN PRN Reason: BP > 180/90 Dextrose/Water (D5w) 1,000 mls @ 0 mls/hr IV .Q0M PRN; As Directed PRN Reason: Hypoglycemia Insulin Human Lispro (Humalog) 0 units SC .MODERATE SLIDING SC PRN PRN Reason: Moderate Correctional Scale Insulin Human Lispro (Humalog) 0 units SC .BEDTIME SLIDING SC PRN PRN Reason: Bedtime Correctional Scale Isosorbide Mononitrate (Imdur) 60 mg PO DAILY [facility] Last Admin: 07/01/17 09:47 Dose: 60 mg Levothyroxine Sodium (Synthroid) 125 mcg PO 0600 [facility] Last Admin: 07/01/17 05:56 Dose: 125 mcg Loratadine (Claritin) 10 mg PO DAILYPRN PRN PRN Reason: Sinus Symptoms Lorazepam (Ativan) 1 mg PO Q4H PRN PRN Reason: Anxiety/Agitation Losartan Potassium (Cozaar) 50 mg PO DAILY [facility] Last Admin: 07/01/17 09:57 Dose: 50 mg Nitroglycerin (Nitrostat) 0.4 mg SL Q5MIN PRN PRN Reason: Chest Pain Ondansetron HCl (Zofran) 4 mg IVP Q6H PRN PRN Reason: Nausea/Vomiting Last Admin: 07/01/17 11:47 Dose: 4 mg Pantoprazole Sodium (Protonix) 40 mg PO DAILY [facility] Last Admin: 07/01/17 09:47 Dose: 40 mg Senna (Senokot) 2 tab PO HSPRN PRN PRN Reason: Constipation Simvastatin (Zocor) 20 mg PO HS [facility] Last Admin: 06/30/17 20:24 Dose: 20 mg Sodium Chloride (Flush - Normal Saline) 10 ml IVF PRN PRN PRN Reason: Saline Flush
[2017-07-01] MEDS ORDERED: Morphine 5 MG/ML SYRINGE SLOW IVP SCH (12:30)
[2017-07-01] MEDS ORDERED: traMADol HCl 50 MG TAB PO PRN (15:14)
--- NOTE | 2017-07-01 15:44 | MRI ---
MRI BRAIN WITHOUT CONTRAST: Date: 07/01/17 HISTORY: Dizziness and confusion. Altered mental status. COMPARISON: None. CORRELATION: Noncontrast head CT dated 06/30/17. TECHNIQUE: Brain MRI is performed without intravenous Gadolinium administration. Multisequential, multiplanar im aging is performed. FINDINGS: No hemorrhage on the axial gradient echo sequence. Calvarium has a normal T1 marrow signal intensity. Midline brain parenchymal structures are unremarka ble. Central arterial flow-voids are maintained. Absent restricted diffusion. Scattered T2 and FLAIR white matter hyperintensities due to chronic small vessel ischemic change. No parenchymal mass, mass effect, or midline shift. Brain volume is age-appropriate. Cortical bass-wh ite matter differentiation is preserved. No evidence of hydrocephalus. Bilateral ocular lens implants are noted. Adequate aeration of the sinuses and mastoid air cells. IMPRESSION: 1. Age-appropriate atrophy. 2. Chronic small vessel ischemic changes of the white matter. 3. Absent restricted diffusion. No acute infarction. POS: [facility]
[2017-07-01] MEDS: traMADol HCl 50 MG TAB PO PRN ×2 (16:40→23:52)
--- NOTE | 2017-07-01 16:59 | HP ---
HISTORY OF PRESENT ILLNESS: Flora Anthony is a 76-year-old female patient admitted to [facility] on 06/30/2017 with complaints of 2 weeks of abdominal pain, epigastric, back radiation, nausea, and vomiting. This has been occurring almost daily. It has been worsening. She had a known history of past cholelithiasis. Liver function tests are normal, common bile duct is 3 mm. Patient has remained hemodynamically stable. She was on Eliquis, atrial fibrillation. She was given Eliquis this morning. I have been asked to see regarding surgical evaluation. Patient had a moment where she cannot remember where she was around the house and called EMS. PAST MEDICAL HISTORY: Atrial fibrillation on Eliquis, diabetes mellitus type 2, hypothyroidism, hype rtension, obesity, coronary artery disease, status post coronary bypass grafting in [place] in 1994. She had a myocardial infarction at that time in 2014. She had a stent in later in 2014. She had t wo more stents in 2016. She had a stent after which she began to experience atrial fibrillation. [facility] is followed by Dr. Cheatham. She was cleared for a total knee replacement in 04/16/[address] Carter bauman. Apparently, she had a chemical stress test in his office. She has diabetes mellitus, hypertensio n. She is obese. She is mentally acute. She is alert and oriented x3. PAST SURGICAL HISTORY: Coronary artery bypass grafting x3, multiple cardiac stents, bilateral knee r eplacements, staged last year, hysterectomy and appendectomy in the past. SOCIAL: Patient lives alone, but her family lives close by. TOBACCO: None. ALCOHOL: None. MEDICATIONS: Tylenol p.r.n., Eliquis 5 b.i.d. dose this morning, aspirin 81 mg a day, Tessalon p.r.n ., Dulcolax p.r.n., carvedilol 25 mg b.i.d., Plavix 75 mg a day, Multaq 400 mg b.i.d., Ogen 0.75 mg p .o. q. day, glucagon p.r.n., tramadol p.r.n., Coreg 25 b.i.d., simvastatin 25 mg a day, metformin 500 mg b.i.d., vitamin D3, calcium b.i.d., Multaq 400 b.i.d., levothyroxine 125 mcg a day, Flexeril 10 m g t.i.d. p.r.n. IMAGING: MRI brain has been ordered and is pending. CT scan of her brain on admission 06/30/2017 wa s unremarkable with some chronic small vessel changes. Carotid Doppler was normal and no flow limita tion. Abdominal ultrasound, gallstones, multiple normal bile duct caliber. PHYSICAL EXAMINATION VITAL SIGNS: 5 feet 4 inches, 227 pounds, 39 BMI, 98 degrees, 63, 20, 126/59. EYES: Sclerae nonicteric. SKIN: Nonjaundiced. LUNGS: Clear to auscultation. CARDIAC: Irregularly irregular, no murmur. ABDOMEN: Soft, tenderness in epigastric right upper quadrant, mild guarding. EXTREMITIES: Unremarkable, obese. Without edema. LABORATORY DATA: Liver function tests are normal. Renal function is normal. White count 9, hemoglo bin 12. ASSESSMENT AND PLAN: 1. Symptomatic cholelithiasis. Recommend laparoscopic video cholecystectomy. We will plan this yarely , but she received a dose of Eliquis this morning. I have held her Eliquis and we will plan emily babar on . We will ask Dr. Cheatham to see her for preoperative cardiac clearance. I have expl ained the risk of operation including infection, bleeding, reoperation, biliary visceral injury, Exce shannon. She consents. 2. Atrial fibrillation on Eliquis hold. 3. Coronary artery disease, preoperative cardiac clearance. Consult Dr. Cheatham. 4. Diabetes mellitus. 5. Hypertension. 6. Obesity. 7. History of coronary artery disease, atrial fibrillation.
[2017-07-01] MEDS: Promethazine 25 MG TAB PO PRN (20:11)
[2017-07-01] MEDS: Simvastatin 20 MG TAB PO SCH (21:05)
--- NOTE | 2017-07-01 21:56 | CON ---
DATE OF CONSULTATION: 07/01/2017 REASON FOR CONSULTATION: Preoperative evaluation. PRIMARY FINISHER MACHINE: Owen Cheatham M.D. HISTORY OF PRESENT ILLNESS: Mrs. Anthony is a very pleasant 76-year-old white female who comes to the hospital for altered mentation. She was found to be somewhat hypoglycemic thought to be a stroke; h owever, MRI ruled this out as well as her improvement in symptoms. She did have some abdominal pain for the last 2 weeks with nausea and vomiting which had been occurring almost every day. She had not been eating that well. She had an abdominal ultrasound that showed a thickened gallbladder michel wi th sludge and positive findings for cholecystitis, so Dr. Aguilar was consulted who plans on doing a l aparoscopic cholecystectomy once her Eliquis is worn out. Cardiology is being consulted for preopera tive evaluation. PAST MEDICAL HISTORY: 1. Paroxysmal atrial fibrillation on chronic anticoagulation with Eliquis. 2. Type 2 diabetes. 3. Hypothyroidism. 4. Hypertension. 5. Coronary artery disease, status post 2-vessel bypass in 2004. More recently, she had a stent to the vein graft to the LAD in 2014 and in 04/2016, she had a stent to her [place] OM left circumflex sy stem. PAST SURGICAL HISTORY: 1. CABG as above. 2. Stenting as above. 3. Bilateral knee replacement, most recently in 03/2017, just three months ago. 4. Hysterectomy. OUTPATIENT MEDICATIONS: 1. Losartan 50 mg a day. 2. Plavix 75 mg a day. 2. Estropipate. 3. Levothyroxine. 4. Eliquis 5 mg b.i.d. 5. Metformin. 6. Carvedilol 25 mg b.i.d. 7. Simvastatin 20 mg a day. 8. Imdur 60 mg a day. 9. Glyburide 5 mg a day. 10. Tramadol 50 mg t.i.d. 10. Cyclobenzaprine. 11. Multaq 400 mg p.o. b.i.d. ALLERGIES: KEFLEX, PENICILLIN, and CODEINE. FAMILY HISTORY: Noncontributory. SOCIAL HISTORY: No alcohol, tobacco or drugs. REVIEW OF SYSTEMS: Twelve-point review of systems was done and is all negative unless stated in the history of present illness. PHYSICAL EXAMINATION: VITAL SIGNS: Temperature 98.5, pulse 63, respiratory rate 16, satting 98% on room air, blood pressur e 154/69. GENERAL: Awake, alert, oriented x3, in no distress. HEENT: Normocephalic, atraumatic. NECK: Supple. LUNGS: Lungs are clear. CARDIOVASCULAR: S1, S2, no S3, S4. There is a grade 2/6 systolic murmur at the right upper sternal border. ABDOMEN: Soft, otherwise. EXTREMITIES: 1+ edema. SKIN: Warm and dry. LABORATORY WORK: Reviewed. White count of 11 on arrival, down to 9; hemoglobin of 12, hematocrit 36 , platelet count of 368. Chemistry was reviewed. Troponin has been negative x1. CK-MB was normal. GFR was 64, glucose was a little low at 57, much better now. Albumin 3.5. Triglycerides of 132, ch olesterol 121, LDL of 65, HDL of 30. UA was unremarkable except for a small amount of bilirubin. Abdominal ultrasound was reviewed and it showed cholelithiasis with gallbladder sludge and wall thick ening. MRI of the brain show age appropriate atrophy with chronic small vessel ischemic changes. Absent res tricted diffusion and no acute infarction. Carotid Doppler ultrasound shows no hemodynamically significant stenosis. CT of the brain on arrival showed no acute intracranial abnormality and chronic small vessel ischemic changes as the same findings as the MRI. ASSESSMENT AND PLAN: 1. Acute cholecystitis. 2. Coronary artery disease, status post stenting to a vein graft to the LAD as well as the [place] le ft circumflex and OM. 3. Paroxysmal atrial fibrillation on Eliquis and Multaq. PLAN: She has certainly a reasonable surgical risk given her lack of symptoms from the cardiac corona dpoint and her revascularization about a year ago. She did very well with her surgery in March I think it should be just fine to do surgery at this time. We would get an echocardiogram just as we have time given the use of Eliquis recently. We will have to wait at least 48 hours for the Eliqu is to wear out before undergoing any surgical procedure. I agree with plan on doing surgery afternoon. This was given her 4 doses of Eliquis missed. Thank you for letting us participate in the care of your patient. We will continue to follow.
--- NOTE | 2017-07-01 22:02 | CON ---
DATE OF CONSULTATION: 07/01/2017 CONSULTING PHYSICIAN: Hospitalist Service. IMPRESSION: 1. Probable hypoglycemic event rather than an a TIA. 2. Diabetes. 3. Hypertension. 4. Atrial fibrillation. 5. Coronary artery disease. 6. Hyperlipidemia. PLAN: Continue aspirin and Plavix and treatment of her hyperlipidemia. HISTORY OF PRESENT ILLNESS: Ms. Anthony is a 76-year-old white female who began feeling generally wea k and having some difficulty walking. She went over to the refrigerator and got a glass of lemonade, after drinking the lemonade, she started to feel better, after she regained her strength, she called 911 and had an ambulance come out and bring her to the hospital. She was seen in the emergency room where initial workup showed a glucose of 120. She has felt fine since admission. Further workup in cluded a carotid ultrasound which was normal. CT of the brain which showed some small vessel ischemi c changes. Her MRI of the brain again showed some minimal small vessel ischemic changes, but no acut e ischemic event. She feels like she is back to her baseline. PAST MEDICAL HISTORY: As listed above. ALLERGIES: CEPHALEXIN, CODEINE, PENICILLIN, GARLIC, and MERCEDES. SOCIAL HISTORY: No tobacco or alcohol use. FAMILY HISTORY: Noncontributory. REVIEW OF SYSTEMS: No complaint of headache, nausea, vomiting, vertigo, chest pain, shortness of darrel ath. PHYSICAL EXAMINATION: VITAL SIGNS: Blood pressure 154/69, pulse 63, respirations 16, temperature 98.5. HEENT: Pupils equal. Conjunctivae clear. Oropharynx clear. NECK: Supple. EXTREMITIES: No cyanosis or edema. NEUROLOGIC: She is alert and appropriate. Her speech is fluent and clear. Cranial nerves II-XII ar e intact. There are no focal deficits. She is bit unsteady on her feet. No abnormal movements were seen. SUMMARY: Elderly lady who likely had a transient hypoglycemic spells. She seems to be back to her b aseline. Her stroke workup is otherwise negative. She will be discharged to her discretion.
[2017-07-02] MEDS: Levothyroxine Sodium 125 MCG TAB PO SCH (06:17)
[2017-07-02] MEDS: traMADol HCl 50 MG TAB PO PRN ×2 (07:55→17:07)
[2017-07-02] MEDS: Dronedarone HCl 400 MG TAB PO SCH ×2 (09:21→16:47)
[2017-07-02] MEDS: Carvedilol 25 MG TAB PO SCH ×2 (09:22→16:47)
[2017-07-02] MEDS: Promethazine 25 MG TAB PO PRN ×2 (09:23→22:11)
[2017-07-02] MEDS: Aspirin 81 mg Enteric Coated Tablet PO SCH (10:35)
[2017-07-02] MEDS: Clopidogrel Bisulfate 75 MG TAB PO SCH (10:35)
--- NOTE | 2017-07-02 12:52 | PDOC.CTH ---
Cardiology Progress Note - Subjective She is doing well. Denies any chest pain, tightness, pressure, SOB. - Objective Vital Signs Temp Pulse Resp BP BP Pulse Ox 07/02/17 12:00 99.2 F 78 18 124/72 93 L 07/02/17 08:06 98.9 F 70 18 07/02/17 08:01 134/78 07/02/17 08:00 98.9 F 70 18 93 L 07/02/17 04:04 98.9 F 67 18 128/66 94 L Admit Weight 227 lb 6.4 oz Weight 227 lb 6.4 oz 07/01/17 07/02/17 07/03/17 06:59 06:59 06:59 Intake Total 580 64 Output Total 950 Balance -370 64 - Physical Examination General/Neuro: alert & oriented x3, NAD Neck: no JVD present Lungs: CTA, unlabored respirations Heart: RRR Abdomen: NT/ND Extremities: + edema B (trace) - Telemetry Telemetry Rhythm: NSR - Labs Result Diagrams: 07/01/17 04:51 07/01/17 04:51 Troponin/CKMB CK-MB (CK-2) 2.3 ng/mL (0-6.6) 06/30/17 15:04 Troponin I 0.017 ng/mL (< 0.028) 06/30/17 15:04 - Assessment/Plan 1. Acute cholecystitis 2. AMS, resolved. 3. CAD, stable 4. Paroxysmal afib PLAN: - Echocardiogram pending today. - Continue plans for surgery tomorrow. - Continue to hold Eliquis until after her surgery.
--- NOTE | 2017-07-02 14:32 | PDOC.PN ---
- Subjective Encounter Start Date: 07/02/17 Encounter Start Time: 07:40 Pt seen for followup re: TIA. Feels better. No nausea, vomiting or diarrhea. - Objective MAR Reviewed: Yes Vital Signs & Weight: Vital Signs (12 hours) Temp Pulse Resp BP BP Pulse Ox 07/02/17 12:00 99.2 F 78 18 124/72 93 L 07/02/17 08:06 98.9 F 70 18 07/02/17 08:01 134/78 07/02/17 08:00 98.9 F 70 18 93 L 07/02/17 04:04 98.9 F 67 18 128/66 94 L Weight Admit Weight 227 lb 6.4 oz Weight 227 lb 6.4 oz I&O: 07/01/17 07/02/17 07/03/17 06:59 06:59 06:59 Intake Total 580 64 Output Total 950 Balance -370 64 Result Diagrams: 07/01/17 04:51 07/01/17 04:51 Additional Labs: Accuchecks 07/02/17 07/02/17 07/02/17 10:58 06:21 00:03 POC Glucose 147 H 161 H 148 H 07/01/17 07/01/17 07/01/17 20:56 16:44 16:31 POC Glucose 193 H 206 H 183 H EKG Reviewed by me: Yes (Tele: NSR) Phys Exam - Physical Examination Obese HEENT: moist MMs, oral pharynx no lesions Neck: supple Respiratory: clear to auscultation bilateral Cardiovascular: RRR Gastrointestinal: soft Neurological: moves all 4 limbs Psychiatric: normal affect Dx/Plan (1) TIA (transient ischemic attack) Status: Acute (2) Colic, biliary Code(s): K80.50 - CALCULUS OF BILE DUCT W/O CHOLANGITIS OR CHOLECYST W/O OBST Status: Acute (3) Coronary artery disease Code(s): I25.10 - ATHSCL HEART DISEASE OF [place] CORONARY ARTERY W/O ANG PCTRS Status: Chronic Comment: on Plavix (4) DM type 2 (diabetes mellitus, type 2) Status: Chronic (5) HLD (hyperlipidemia) Code(s): E78.5 - HYPERLIPIDEMIA, UNSPECIFIED Status: Chronic (6) HTN (hypertension) Code(s): I10 - ESSENTIAL (PRIMARY) HYPERTENSION Status: Chronic (7) Paroxysmal a-fib Code(s): I48.0 - PAROXYSMAL ATRIAL FIBRILLATION Status: Chronic Comment: on Eliquis - Plan continue antibiotics, PT/OT, out of bed/ambulate * . For surgery tomorrow. Continue levofloxacin. Monitor vital signs, titrate antihypertensives as needed. Continue insulin sliding scale, accuchecks. Review of Systems - Review of Systems Respiratory: negative: Cough, Dry, Shortness of Breath, Hemoptysis, SOB with Excertion, Pleuritic Pain, Sputum, Wheezing Cardiovascular: negative: chest pain, palpitations, orthopnea, paroxysmal nocturnal dyspnea, edema, light headedness - Medications/Allergies Allergies/Adverse Reactions: Allergies Allergy/AdvReac Type Severity Reaction Status Date / Time cephalexin monohydrate Allergy Severe Hives Verified 04/02/17 11:15 [From Keflex] codeine Allergy Intermediate HALLUCINATI Verified 04/02/17 11:15 ONS Penicillins Allergy Intermediate Hives Verified 04/02/17 11:15 garlic AdvReac INTERFERS Verified 09/10/16 13:48 WITH HER MEDS yovany AdvReac INTERFERS Verified 09/10/16 13:48 WITH HER MEDS Medications: Current Medications Acetaminophen (Tylenol) 650 mg PO Q4H PRN PRN Reason: Headache/Fever or Pain Last Admin: 07/01/17 14:06 Dose: 650 mg Al Hydroxide/Mg Hydroxide (Maalox) 30 ml PO Q6H PRN PRN Reason: Heartburn or Indigestion Aspirin (Ecotrin) 81 mg PO DAILY [facility] Last Admin: 07/02/17 10:35 Dose: 81 mg Benzonatate (Tessalon) 100 mg PO Q4H PRN PRN Reason: Cough Bisacodyl (Dulcolax) 10 mg PO DAILYPRN PRN PRN Reason: Constipation Last Admin: 07/01/17 06:00 Dose: 10 mg Calcium Carbonate (Tums) 1,000 mg PO Q4H PRN PRN Reason: Heartburn or Indigestion Carvedilol (Coreg) 25 mg PO BID-[facility] Last Admin: 07/02/17 09:22 Dose: Not Given Clopidogrel Bisulfate (Plavix) 75 mg PO DAILY [facility] Last Admin: 07/02/17 10:35 Dose: 75 mg Dextrose/Water (Dextrose 50%) 25 gm SLOW IVP PRN PRN PRN Reason: Hypoglycemia Dronedarone (Multaq) 400 mg PO BID-[facility] Last Admin: 07/02/17 09:21 Dose: 400 mg Estropipate (Ogen) 0.75 mg PO DAILY [facility] Last Admin: 07/02/17 10:35 Dose: 0.75 mg Glucagon (Glucagon) 1 mg IM PRN PRN PRN Reason: Hypoglycemia Guaifenesin (Robitussin Sf) 200 mg PO Q4H PRN PRN Reason: Cough Hydralazine HCl (Apresoline) 10 mg SLOW IVP Q4H PRN PRN Reason: BP > 180/90 Dextrose/Water (D5w) 1,000 mls @ 0 mls/hr IV .Q0M PRN; As Directed PRN Reason: Hypoglycemia Levofloxacin 500 mg/ Device 100 mls @ 100 mls/hr IVPB Q24HR [facility] Last Admin: 07/01/17 16:41 Dose: 100 mls Sodium Chloride (Normal Saline 0.9%) 1,000 mls @ 75 mls/hr IV .[id number] [facility] Insulin Human Lispro (Humalog) 0 units SC .MODERATE SLIDING SC PRN PRN Reason: Moderate Correctional Scale Insulin Human Lispro (Humalog) 0 units SC .BEDTIME SLIDING SC PRN PRN Reason: Bedtime Correctional Scale Isosorbide Mononitrate (Imdur) 60 mg PO DAILY [facility] Last Admin: 07/02/17 09:21 Dose: 60 mg Levothyroxine Sodium (Synthroid) 125 mcg PO 0600 [facility] Last Admin: 07/02/17 06:17 Dose: 125 mcg Loratadine (Claritin) 10 mg PO DAILYPRN PRN PRN Reason: Sinus Symptoms Lorazepam (Ativan) 1 mg PO Q4H PRN PRN Reason: Anxiety/Agitation Losartan Potassium (Cozaar) 50 mg PO 1500 [facility] Nitroglycerin (Nitrostat) 0.4 mg SL Q5MIN PRN PRN Reason: Chest Pain Ondansetron HCl (Zofran) 4 mg IVP Q6H PRN PRN Reason: Nausea/Vomiting Last Admin: 07/01/17 18:28 Dose: 4 mg Pantoprazole Sodium (Protonix) 40 mg PO DAILY [facility] Last Admin: 07/02/17 09:21 Dose: 40 mg Promethazine HCl (Phenergan) 25 mg PO Q6H PRN PRN Reason: Nausea Last Admin: 07/02/17 09:23 Dose: 25 mg Senna (Senokot) 2 tab PO HSPRN PRN PRN Reason: Constipation Simvastatin (Zocor) 20 mg PO HS [facility] Last Admin: 07/01/17 21:05 Dose: Not Given Sodium Chloride (Flush - Normal Saline) 10 ml IVF PRN PRN PRN Reason: Saline Flush Tramadol HCl (Ultram) 50 mg PO Q6H PRN PRN Reason: Moderate Pain (4-6) Tramadol HCl (Ultram) 100 mg PO Q6H PRN PRN Reason: Severe Pain (7-10) Last Admin: 07/02/17 07:55 Dose: 100 mg
[2017-07-02] MEDS: Losartan 25 MG TAB PO SCH (14:59)
[2017-07-02] MEDS: Simvastatin 20 MG TAB PO SCH (20:33)
[2017-07-03] MEDS: Levothyroxine Sodium 125 MCG TAB PO SCH (03:55)
[2017-07-03 06:14] LABS: ALT (SGPT) 80 U/L (8-55); AST (SGOT) 42 U/L (5-34); Albumin 3.2 g/dL (3.4-4.8); Alkaline Phosphatase 199 U/L (40-150); Anion Gap 12 mmol/L (10-20); BUN (Urea Nitrogen) 10 mg/dL (9.8-20.1); Calc. Creatinine Clearance 73 mL/min (70-130); Calcium 9.2 mg/dL (7.8-10.44); Carbon Dioxide 29 mmol/L (23-31); Chloride 99 mmol/L (98-107); Estimated GFR-MDRD 51; Globulin 3.7 g/dL (2.4-3.5); Glucose 105 mg/dL (83-110); Potassium 3.7 mmol/L (3.5-5.1); Protein, Total 6.9 g/dL (6.0-8.3); Sodium 136 mmol/L (136-145)
[2017-07-03] MEDS ORDERED: Sodium Chloride 0.9% 1,000 ML IV SCH (08:00)
[2017-07-03] MEDS: Dronedarone HCl 400 MG TAB PO SCH ×2 (08:20→17:36)
[2017-07-03] MEDS: Carvedilol 25 MG TAB PO SCH ×2 (08:20→17:36)
[2017-07-03] MEDS ORDERED: Bupivacaine HCl 0.5%/Epinephrine 1:200,000/PF 30 ml Vial ONE (11:06)
[2017-07-03] MEDS ORDERED: Midazolam HCl 2 mg/2 ml Vial ONE (11:22)
[2017-07-03] MEDS ORDERED: Fentanyl 250 MCG/5 ML VIAL ONE ×2 (11:22→14:32)
[2017-07-03] MEDS ORDERED: Levofloxacin 500 mg/D5W 100 ml Premix Bag ONE (12:48)
--- NOTE | 2017-07-03 13:30 | PDOC.PN ---
- Subjective Encounter Start Date: 07/03/17 Encounter Start Time: 08:00 Pt seen for followup re; TIA. Denies chest pain, shortness of breath, fevers or chills. - Objective MAR Reviewed: Yes Vital Signs & Weight: Vital Signs (12 hours) Temp Pulse Resp BP BP Pulse Ox 07/03/17 08:00 98.7 F 68 16 07/03/17 07:46 98.7 F 68 16 131/56 L 93 L 07/03/17 04:08 98.3 F 63 16 119/52 L 93 L Weight Admit Weight 227 lb 6.4 oz Weight 227 lb 6.4 oz I&O: 07/02/17 07/03/17 07/04/17 06:59 06:59 06:59 Intake Total 64 260 Balance 64 260 Result Diagrams: 07/01/17 04:51 07/03/17 05:33 Additional Labs: Accuchecks 07/03/17 07/03/17 07/03/17 11:06 05:49 00:33 POC Glucose 119 H 99 108 07/02/17 07/02/17 21:01 17:16 POC Glucose 113 H 100 Phys Exam - Physical Examination Constitutional: NAD HEENT: moist MMs Neck: supple Respiratory: clear to auscultation bilateral Cardiovascular: RRR Gastrointestinal: soft Neurological: moves all 4 limbs Psychiatric: normal affect Dx/Plan (1) TIA (transient ischemic attack) Status: Acute Comment: No recurrence, anticoagulation on hold for surgery (2) Colic, biliary Code(s): K80.50 - CALCULUS OF BILE DUCT W/O CHOLANGITIS OR CHOLECYST W/O OBST Status: Acute Comment: For cholecystectomy later today (3) Coronary artery disease Code(s): I25.10 - ATHSCL HEART DISEASE OF [place] CORONARY ARTERY W/O ANG PCTRS Status: Chronic Comment: Stable (4) DM type 2 (diabetes mellitus, type 2) Status: Chronic Comment: Continue accuchecks, insulin sliding scale (5) HLD (hyperlipidemia) Code(s): E78.5 - HYPERLIPIDEMIA, UNSPECIFIED Status: Chronic Comment: stable (6) HTN (hypertension) Code(s): I10 - ESSENTIAL (PRIMARY) HYPERTENSION Status: Chronic Comment: Monitor vital signs, titrate antihypertensives as needed (7) Paroxysmal a-fib Code(s): I48.0 - PAROXYSMAL ATRIAL FIBRILLATION Status: Chronic Comment: Rosy on hold for surgery - Plan PT/OT, out of bed/ambulate * . Review of Systems - Review of Systems Respiratory: negative: Cough, Dry, Shortness of Breath, Hemoptysis, SOB with Excertion, Pleuritic Pain, Sputum, Wheezing Cardiovascular: negative: chest pain, palpitations, orthopnea, paroxysmal nocturnal dyspnea, edema, light headedness - Medications/Allergies Allergies/Adverse Reactions: Allergies Allergy/AdvReac Type Severity Reaction Status Date / Time cephalexin monohydrate Allergy Severe Hives Verified 04/02/17 11:15 [From Keflex] codeine Allergy Intermediate HALLUCINATI Verified 04/02/17 11:15 ONS Penicillins Allergy Intermediate Hives Verified 04/02/17 11:15 garlic AdvReac INTERFERS Verified 09/10/16 13:48 WITH HER MEDS yovany AdvReac INTERFERS Verified 09/10/16 13:48 WITH HER MEDS Medications: Current Medications Acetaminophen (Tylenol) 650 mg PO Q4H PRN PRN Reason: Headache/Fever or Pain Last Admin: 07/01/17 14:06 Dose: 650 mg Al Hydroxide/Mg Hydroxide (Maalox) 30 ml PO Q6H PRN PRN Reason: Heartburn or Indigestion Aspirin (Ecotrin) 81 mg PO DAILY [facility] Last Admin: 07/02/17 10:35 Dose: 81 mg Benzonatate (Tessalon) 100 mg PO Q4H PRN PRN Reason: Cough Bisacodyl (Dulcolax) 10 mg PO DAILYPRN PRN PRN Reason: Constipation Last Admin: 07/01/17 06:00 Dose: 10 mg Calcium Carbonate (Tums) 1,000 mg PO Q4H PRN PRN Reason: Heartburn or Indigestion Carvedilol (Coreg) 25 mg PO BID-[facility] Last Admin: 07/03/17 08:20 Dose: 25 mg Clopidogrel Bisulfate (Plavix) 75 mg PO DAILY [facility] Last Admin: 07/02/17 10:35 Dose: 75 mg Dextrose/Water (Dextrose 50%) 25 gm SLOW IVP PRN PRN PRN Reason: Hypoglycemia Dronedarone (Multaq) 400 mg PO BID-[facility] Last Admin: 07/03/17 08:20 Dose: 400 mg Estropipate (Ogen) 0.75 mg PO DAILY [facility] Last Admin: 07/02/17 10:35 Dose: 0.75 mg Fentanyl (Pacu-Sublimaze) 50 mcg SLOW IVP Q10MIN PRN PRN Reason: Moderate to Severe Pain (6-10) Stop: 07/03/17 15:48 Glucagon (Glucagon) 1 mg IM PRN PRN PRN Reason: Hypoglycemia Guaifenesin (Robitussin Sf) 200 mg PO Q4H PRN PRN Reason: Cough Hydralazine HCl (Apresoline) 10 mg SLOW IVP Q4H PRN PRN Reason: BP > 180/90 Dextrose/Water (D5w) 1,000 mls @ 0 mls/hr IV .Q0M PRN; As Directed PRN Reason: Hypoglycemia Levofloxacin 500 mg/ Device 100 mls @ 100 mls/hr IVPB Q24HR [facility] Last Admin: 07/02/17 14:59 Dose: 100 mls Sodium Chloride (Normal Saline 0.9%) 1,000 mls @ 75 mls/hr IV .[id number] [facility] Last Admin: 07/03/17 08:21 Dose: 1,000 mls Insulin Human Lispro (Humalog) 0 units SC .MODERATE SLIDING SC PRN PRN Reason: Moderate Correctional Scale Insulin Human Lispro (Humalog) 0 units SC .BEDTIME SLIDING SC PRN PRN Reason: Bedtime Correctional Scale Isosorbide Mononitrate (Imdur) 60 mg PO DAILY [facility] Last Admin: 07/02/17 09:21 Dose: 60 mg Levothyroxine Sodium (Synthroid) 125 mcg PO 0600 [facility] Last Admin: 07/03/17 03:55 Dose: Not Given Loratadine (Claritin) 10 mg PO DAILYPRN PRN PRN Reason: Sinus Symptoms Lorazepam (Ativan) 1 mg PO Q4H PRN PRN Reason: Anxiety/Agitation Losartan Potassium (Cozaar) 50 mg PO 1500 [facility] Last Admin: 07/02/17 14:59 Dose: 50 mg Nitroglycerin (Nitrostat) 0.4 mg SL Q5MIN PRN PRN Reason: Chest Pain Ondansetron HCl (Zofran) 4 mg IVP Q6H PRN PRN Reason: Nausea/Vomiting Last Admin: 07/01/17 18:28 Dose: 4 mg Pantoprazole Sodium (Protonix) 40 mg PO DAILY [facility] Last Admin: 07/03/17 08:20 Dose: 40 mg Promethazine HCl (Phenergan) 25 mg PO Q6H PRN PRN Reason: Nausea Last Admin: 07/02/17 22:11 Dose: 25 mg Senna (Senokot) 2 tab PO HSPRN PRN PRN Reason: Constipation Simvastatin (Zocor) 20 mg PO HS [facility] Last Admin: 07/02/17 20:33 Dose: Not Given Sodium Chloride (Flush - Normal Saline) 10 ml IVF PRN PRN PRN Reason: Saline Flush Tramadol HCl (Ultram) 50 mg PO Q6H PRN PRN Reason: Moderate Pain (4-6) Tramadol HCl (Ultram) 100 mg PO Q6H PRN PRN Reason: Severe Pain (7-10) Last Admin: 07/02/17 17:07 Dose: 100 mg
--- NOTE | 2017-07-03 14:39 | OP ---
DATE OF PROCEDURE: 07/03/2017 PREOPERATIVE DIAGNOSES: Severe acute cholecystitis, cholelithiasis. PROCEDURE: Laparoscopic video cholecystectomy, #19 gold ANA drain. Justice and FloSeal placed in the liver bed. SURGEON: Dr. Salvador Aguilar. ANESTHESIA: General. Now, the patient was admitted with mental status changes and malaise and abdominal pain. She is on E liquis, which she was given in the morning of surgical consultation after patient was found to have g allstones. She had tenderness epigastric pain for more than a week. PROCEDURE IN DETAIL: Patient taken to the operating room where under general anesthesia, abdomen was prepared with ChloraPrep, draped in routine fashion. Local anesthetic 0.5% Marcaine with epinephrin e infiltrated into the skin and subcutaneous tissue about each port site. Supraumbilical incision ma de. Pneumoperitoneum to 15 mmHg obtained with the Veress needle, replacing it with a 5 port. Right subxiphoid incision made and 11 port placed. Right subcostal incision made, mid clavicular anterior axillary lines and 5 ports placed. Fundus of gallbladder was severely inflamed and walled off by a t ransverse mesocolon. This was carefully taken down with laparoscopic dissection, I was able to caref ully grab a thickened fundus of the gallbladder, which was very difficult. I was able to grasp and r eflected cephalad. Gallbladder was very hard and full of stones and inflamed. Dissection carefully carried down to the infundibulum. Careful dissection carried out with fatty inflammatory chronic sca rring tissue taken down with a [place] dissector down to the cystic duct. Node of Calot identified, dissected free off the gallbladder. Cystic artery and duct dissected free. Cystic artery double cl ipped proximally, divided. Cystic duct double clipped and divided and gallbladder dissected free fro m the liver bed from his severe inflammatory reaction both acute and chronic. Hemostasis gained with the cautery. A 400 mL blood loss sustained. Hemostasis gained with cautery. FloSeal placed in dread er bed and near the hesham hepatis. Justice placed in the liver bed. Good hemostasis noted. A #19 go ld ANA drain placed through a right subhepatic brought out through a 5 mm trocar site, right lateral a bdomen subcostal. The drain secured with 3-0 nylon. Biopatch Op-Site and Mastisol applied. Right s ubxiphoid fascia had to be enlarged to remove the large gallbladder. The fascia was closed with cont inuous suture of 0 Vicryl UR needle. Irrigant and pneumoperitoneum evacuated. All instruments remov ed and all skin incisions approximated with interrupted suture of 4-0 Monocryl. DermaGlue applied.
[2017-07-03] MEDS ORDERED: Glycopyrrolate 0.2 MG/ML 5 ML SYRINGE ONE (15:39)
[2017-07-03] MEDS ORDERED: Ondansetron HCl/PF 4 MG/2 ML Vial ONE (15:39)
[2017-07-03] MEDS ORDERED: Propofol 200 MG/20 ML VIAL ONE (15:39)
[2017-07-03] MEDS ORDERED: PHENYLEPHRINE-NS 100 MCG/ML 10 ML SYRINGE ONE (15:39)
[2017-07-03] MEDS ORDERED: Lidocaine 1% PF 5 ML VIAL ONE (15:39)
[2017-07-03] MEDS ORDERED: Dexamethasone 20 MG/5 ML VIAL ONE (15:39)
[2017-07-03] MEDS ORDERED: ePHEDrine/0.9% NaCl/PF SYRINGE 50 mg/10 ml ONE (15:39)
[2017-07-03] MEDS ORDERED: Ondansetron ODT 4 MG TAB PO PRN (15:45)
[2017-07-03] MEDS ORDERED: Ondansetron ODT 8 MG TAB SL PRN (15:45)
[2017-07-03] MEDS ORDERED: Ondansetron ODT 8 MG TAB PO PRN (15:45)
[2017-07-03] MEDS ORDERED: Ondansetron ORAL SOLN. 4 MG/5 ML UDCUP PO PRN ×2 (15:45)
[2017-07-03] MEDS: Losartan 25 MG TAB PO SCH (15:55)
[2017-07-03] MEDS: Aspirin 81 mg Enteric Coated Tablet PO SCH (15:55)
[2017-07-03] MEDS: traMADol HCl 50 MG TAB PO PRN ×2 (15:55→21:52)
[2017-07-03] MEDS: Clopidogrel Bisulfate 75 MG TAB PO SCH (15:55)
[2017-07-03] MEDS: Simvastatin 20 MG TAB PO SCH (21:07)
[2017-07-04] MEDS: traMADol HCl 50 MG TAB PO PRN ×2 (05:06→16:22)
[2017-07-04] MEDS: Levothyroxine Sodium 125 MCG TAB PO SCH (05:06)
[2017-07-04 05:09] LABS: ALT (SGPT) 95 U/L (8-55); AST (SGOT) 123 U/L (5-34); Alkaline Phosphatase 148 U/L (40-150); Anion Gap 14 mmol/L (10-20); BUN (Urea Nitrogen) 19 mg/dL (9.8-20.1); Bilirubin, Total 0.7 mg/dL (0.2-1.2); Calc. Creatinine Clearance 60 mL/min (70-130); Calcium 8.9 mg/dL (7.8-10.44); Carbon Dioxide 25 mmol/L (23-31); Chloride 99 mmol/L (98-107); Estimated GFR-MDRD 41; Globulin 3.3 g/dL (2.4-3.5); Glucose 176 mg/dL (83-110); Potassium 4.8 mmol/L (3.5-5.1); Protein, Total 6.3 g/dL (6.0-8.3); Sodium 133 mmol/L (136-145)
[2017-07-04 05:56] LABS: Band 7 % (5-11); Hemoglobin 10.4 g/dL (12.0-16.0); Lymphocytes 14 % (21-51); MDiff Complete? YES; Mean Corpuscular HGB CONC 32.9 g/dL (32.0-36.0); Mean Corpuscular Hemoglobin 30.4 pg (27.0-31.0); Mean Corpuscular Volume 92.4 fl (81.0-99.0); Mean Platelet Volume 6.5 fL (7.4-10.4); Metamyelocyte 1 % (0-0); Monocytes 4 % (0-10); Neutrophil 73 % (42-75); PLT Morphology Comment Appears Increased; Platelet Count 421 thou/uL (130-400); RBC Distribution Width 13.5 % (11.5-14.5); RBC Morphology Normal; Reactive Lymphocytes 1 % (0-10); Red Blood Cell (RBC) Count 3.42 mill/uL (4.20-5.40)
[2017-07-04] MEDS: Aspirin 81 mg Enteric Coated Tablet PO SCH (10:31)
[2017-07-04] MEDS: Polyethylene Glycol 3350 17 GM Packet PO SCH (10:31)
[2017-07-04] MEDS: Clopidogrel Bisulfate 75 MG TAB PO SCH (10:31)
[2017-07-04] MEDS: Dronedarone HCl 400 MG TAB PO SCH ×2 (10:31→16:10)
[2017-07-04] MEDS: Carvedilol 25 MG TAB PO SCH ×2 (10:32→16:11)
--- NOTE | 2017-07-04 13:58 | PDOC.PN ---
- Subjective Encounter Start Date: 07/04/17 Encounter Start Time: 07:40 Pt seen for followup re: TIA. No neurologic symptoms, but reports RUQ pain is better. No fevers or chills. - Objective MAR Reviewed: Yes Vital Signs & Weight: Vital Signs (12 hours) Temp Pulse Resp BP BP Pulse Ox 07/04/17 11:59 98.8 F 81 14 118/56 L 93 L 07/04/17 11:52 94 L 07/04/17 08:15 98.8 F 81 14 92/54 L 93 L 07/04/17 08:00 99.3 F 94 16 79/45 L 92 L Weight Admit Weight 227 lb 6.4 oz Weight 227 lb 6.4 oz I&O: 07/03/17 07/04/17 07/05/17 06:59 06:59 06:59 Intake Total 260 160 Output Total 230 430 Balance 260 -70 -430 Result Diagrams: 07/04/17 04:26 07/04/17 04:26 Additional Labs: Accuchecks 07/04/17 07/04/17 07/03/17 10:52 06:08 21:01 POC Glucose 158 H 158 H 178 H 07/03/17 16:31 POC Glucose 179 H Phys Exam - Physical Examination Obese HEENT: moist MMs Neck: supple Respiratory: clear to auscultation bilateral Cardiovascular: irregular Gastrointestinal: soft Drain+ Neurological: moves all 4 limbs Psychiatric: normal affect Dx/Plan (1) TIA (transient ischemic attack) Status: Acute Comment: anticoagulation on hold (2) Colic, biliary Code(s): K80.50 - CALCULUS OF BILE DUCT W/O CHOLANGITIS OR CHOLECYST W/O OBST Status: Acute Comment: s/p cholecystectomy yesterday (3) Coronary artery disease Code(s): I25.10 - ATHSCL HEART DISEASE OF [place] CORONARY ARTERY W/O ANG PCTRS Status: Chronic Comment: Stable (4) DM type 2 (diabetes mellitus, type 2) Status: Chronic Comment: accuchecks, insulin sliding scale (5) HLD (hyperlipidemia) Code(s): E78.5 - HYPERLIPIDEMIA, UNSPECIFIED Status: Chronic Comment: stable (6) HTN (hypertension) Code(s): I10 - ESSENTIAL (PRIMARY) HYPERTENSION Status: Chronic Comment: titrate antihypertensives as needed (7) Paroxysmal a-fib Code(s): I48.0 - PAROXYSMAL ATRIAL FIBRILLATION Status: Chronic Comment: Rsoy on hold - Plan PT/OT, out of bed/ambulate * . Has leucocytosis today but no fever. Recheck labs. Review of Systems - Review of Systems Constitutional: weakness. negative: fever, chills, sweats, malaise Gastrointestinal: Abdominal Pain. negative: Nausea, Vomiting, Diarrhea, Constipation, Melena, Hematochezia, Other - Medications/Allergies Allergies/Adverse Reactions: Allergies Allergy/AdvReac Type Severity Reaction Status Date / Time cephalexin monohydrate Allergy Severe Hives Verified 04/02/17 11:15 [From Keflex] codeine Allergy Intermediate HALLUCINATI Verified 04/02/17 11:15 ONS Penicillins Allergy Intermediate Hives Verified 04/02/17 11:15 garlic AdvReac INTERFERS Verified 09/10/16 13:48 WITH HER MEDS yovany AdvReac INTERFERS Verified 09/10/16 13:48 WITH HER MEDS Medications: Current Medications Acetaminophen (Tylenol) 650 mg PO Q4H PRN PRN Reason: Headache/Fever or Pain Last Admin: 07/01/17 14:06 Dose: 650 mg Acetaminophen (Tylenol) 1,000 mg PO Q6H PRN PRN Reason: Moderate to Severe Pain (6-10) Al Hydroxide/Mg Hydroxide (Maalox) 30 ml PO Q6H PRN PRN Reason: Heartburn or Indigestion Aspirin (Ecotrin) 81 mg PO DAILY [facility] Last Admin: 07/04/17 10:31 Dose: 81 mg Benzonatate (Tessalon) 100 mg PO Q4H PRN PRN Reason: Cough Bisacodyl (Dulcolax) 10 mg PO DAILYPRN PRN PRN Reason: Constipation Last Admin: 07/01/17 06:00 Dose: 10 mg Calcium Carbonate (Tums) 1,000 mg PO Q4H PRN PRN Reason: Heartburn or Indigestion Carvedilol (Coreg) 25 mg PO BID-[facility] Last Admin: 07/04/17 10:32 Dose: Not Given Clopidogrel Bisulfate (Plavix) 75 mg PO DAILY [facility] Last Admin: 07/04/17 10:31 Dose: 75 mg Dextrose/Water (Dextrose 50%) 25 gm SLOW IVP PRN PRN PRN Reason: Hypoglycemia Dronedarone (Multaq) 400 mg PO BID-[facility] Last Admin: 07/04/17 10:31 Dose: 400 mg Estropipate (Ogen) 0.75 mg PO DAILY [facility] Last Admin: 07/04/17 12:59 Dose: 0.75 mg Glucagon (Glucagon) 1 mg IM PRN PRN PRN Reason: Hypoglycemia Guaifenesin (Robitussin Sf) 200 mg PO Q4H PRN PRN Reason: Cough Hydralazine HCl (Apresoline) 10 mg SLOW IVP Q4H PRN PRN Reason: BP > 180/90 Dextrose/Water (D5w) 1,000 mls @ 0 mls/hr IV .Q0M PRN; As Directed PRN Reason: Hypoglycemia Levofloxacin 500 mg/ Device 100 mls @ 100 mls/hr IVPB Q24HR [facility] Last Admin: 07/03/17 15:55 Dose: 100 mls Insulin Human Lispro (Humalog) 0 units SC .MODERATE SLIDING SC PRN PRN Reason: Moderate Correctional Scale Insulin Human Lispro (Humalog) 0 units SC .BEDTIME SLIDING SC PRN PRN Reason: Bedtime Correctional Scale Isosorbide Mononitrate (Imdur) 60 mg PO DAILY [facility] Last Admin: 07/04/17 10:32 Dose: Not Given Levothyroxine Sodium (Synthroid) 125 mcg PO 0600 [facility] Last Admin: 07/04/17 05:06 Dose: 125 mcg Loratadine (Claritin) 10 mg PO DAILYPRN PRN PRN Reason: Sinus Symptoms Lorazepam (Ativan) 1 mg PO Q4H PRN PRN Reason: Anxiety/Agitation Losartan Potassium (Cozaar) 50 mg PO 1500 [facility] Last Admin: 07/03/17 15:55 Dose: 50 mg Nitroglycerin (Nitrostat) 0.4 mg SL Q5MIN PRN PRN Reason: Chest Pain Ondansetron HCl (Zofran) 4 mg IVP Q6H PRN PRN Reason: Nausea/Vomiting Last Admin: 07/01/17 18:28 Dose: 4 mg Ondansetron HCl (Zofran Odt) 4 mg PO Q6H PRN PRN Reason: Nausea/Vomiting Last Admin: 07/03/17 20:45 Dose: 4 mg Ondansetron HCl (Zofran Odt) 8 mg SL BID PRN PRN Reason: Nausea/Vomiting Last Admin: 07/03/17 17:36 Dose: 8 mg Pantoprazole Sodium (Protonix) 40 mg PO DAILY [facility] Last Admin: 07/04/17 10:31 Dose: 40 mg Polyethylene Glycol (Miralax) 17 gm PO DAILY [facility] Last Admin: 07/04/17 10:31 Dose: 17 gm Senna (Senokot) 2 tab PO HSPRN PRN PRN Reason: Constipation Simvastatin (Zocor) 20 mg PO HS [facility] Last Admin: 07/03/17 21:07 Dose: Not Given Sodium Chloride (Flush - Normal Saline) 10 ml IVF PRN PRN PRN Reason: Saline Flush Tramadol HCl (Ultram) 50 mg PO Q6H PRN PRN Reason: Moderate Pain (4-6) Tramadol HCl (Ultram) 100 mg PO Q6H PRN PRN Reason: Severe Pain (7-10) Last Admin: 07/04/17 05:06 Dose: 100 mg
--- NOTE | 2017-07-04 14:24 | PDOC.CTH ---
Cardiology Progress Note - Subjective Post op day one. No chest pain, tightness ,pressure, SOB. She has some blood in her drain but obvious evidence of severe bleeding. - Objective Vital Signs Temp Pulse Resp BP BP Pulse Ox 07/04/17 11:59 98.8 F 81 14 118/56 L 93 L 07/04/17 11:52 94 L 07/04/17 08:15 98.8 F 81 14 92/54 L 93 L 07/04/17 08:00 99.3 F 94 16 79/45 L 92 L Admit Weight 227 lb 6.4 oz Weight 227 lb 6.4 oz 07/03/17 07/04/17 07/05/17 06:59 06:59 06:59 Intake Total 260 160 Output Total 230 460 Balance 260 -70 -460 - Physical Examination General/Neuro: alert & oriented x3, NAD Neck: no JVD present Lungs: CTA, unlabored respirations Heart: RRR Abdomen: soft Extremities: + edema B (1+) - Telemetry Telemetry Rhythm: NSR - Labs Result Diagrams: 07/04/17 04:26 07/04/17 04:26 Troponin/CKMB CK-MB (CK-2) 2.3 ng/mL (0-6.6) 06/30/17 15:04 Troponin I 0.017 ng/mL (< 0.028) 06/30/17 15:04 - Assessment/Plan 1. Acute cholecystitis s/p Lap salome. 2. AMS, resolved. 3. CAD, stable 4. Paroxysmal afib PLAN: - Continue to hold Eliquis until deemed safe per surgery. - Continue other meds.
[2017-07-04] MEDS: Losartan 25 MG TAB PO SCH (16:11)
[2017-07-04 16:40] LABS: Band 1 % (5-11); Hemoglobin 10.4 g/dL (12.0-16.0); Lymphocytes 17 % (21-51); MDiff Complete? YES; Mean Corpuscular HGB CONC 32.3 g/dL (32.0-36.0); Mean Corpuscular Hemoglobin 30.3 pg (27.0-31.0); Mean Corpuscular Volume 93.7 fl (81.0-99.0); Monocytes 11 % (0-10); Neutrophil 70 % (42-75); PLT Morphology Comment Appears Increased; Platelet Count 456 thou/uL (130-400); Polychromasia SLIGHT = 2-3 cells (100X) (0-2/hpf); RBC Distribution Width 13.6 % (11.5-14.5); Reactive Lymphocytes 1 % (0-10); Red Blood Cell (RBC) Count 3.44 mill/uL (4.20-5.40); White Blood Cell (WBC) Count 28.5 thou/uL (4.8-10.8)
--- NOTE | 2017-07-04 17:53 | PDOC.EVN ---
Event Note - Event Note Event Note: Discussed with patient and surgical service re: worsening leucocytosis. Surgical service okay with addition of another antibiotic. Pt does not wish to start a second antibiotic unless needed. She feels well. After discussing risks vs benefits, she mad an informed decision to continue on levofloxacin. If she worsens, she will consider a second antibiotic. Discussed code status. She is full code.
--- NOTE | 2017-07-04 18:01 | PRG ---
DATE OF SERVICE: 07/04/2017 SUBJECTIVE: Ms. Anthony is doing well today. OBJECTIVE: VITAL SIGNS: Heart rate 89, 98.7 degrees. GENERAL: She remains afebrile. She has walked to the bathroom and been up in a chair. LUNGS: Clear to auscultation. CARDIAC: Regular rate and rhythm without murmur or gallop. ABDOMEN: Soft, nontender. ANA drain is putting out quite a bit of serosanguineous fluid, more serous . LABORATORY DATA: White count is 28,000, hemoglobin 10.4 this morning. Sodium 133, potassium 4.8, BU N 19, creatinine 1.26. Pathology is pending. Liver function tests are stable. ASSESSMENT AND PLAN: Doing well, status post laparoscopic cholecystectomy. We would held her Eliqui s for now. We will check her hemoglobin tonight and again in the morning in need to improve her mobi lity prior to consider going home. Continue using antibiotics.
[2017-07-04 18:35] LABS: #Lymphocytes 2.6 thou/uL (1.20-3.40); #Monocytes 1.6 thou/uL (0.11-0.59); #Neutrophils 16.2 thou/uL (1.40-6.50); %Eosinophils 0.1 % (0.0-10.0); %Lymphocytes 12.7 % (21.0-51.0); %Neutrophils 79.1 % (42.0-75.0); Hemoglobin 9.9 g/dL (12.0-16.0); Mean Corpuscular HGB CONC 33.3 g/dL (32.0-36.0); Mean Corpuscular Hemoglobin 30.9 pg (27.0-31.0); Mean Corpuscular Volume 92.7 fl (81.0-99.0); Mean Platelet Volume 6.5 fL (7.4-10.4); Platelet Count 397 thou/uL (130-400); RBC Distribution Width 13.6 % (11.5-14.5); Red Blood Cell (RBC) Count 3.19 mill/uL (4.20-5.40); White Blood Cell (WBC) Count 20.4 thou/uL (4.8-10.8)
[2017-07-04] MEDS: Simvastatin 20 MG TAB PO SCH (22:07)
[2017-07-05] MEDS: traMADol HCl 50 MG TAB PO PRN ×4 (02:45→21:15)
[2017-07-05 06:11] LABS: #Eosinphils 0.1 thou/uL (0.0-0.7); #Lymphocytes 2.8 thou/uL (1.20-3.40); #Monocytes 1.6 thou/uL (0.11-0.59); #Neutrophils 12.2 thou/uL (1.40-6.50); %Basophils 0.1 % (0.0-1.0); %Eosinophils 0.4 % (0.0-10.0); %Lymphocytes 16.6 % (21.0-51.0); %Monocytes 9.7 % (0.0-10.0); %Neutrophils 73.2 % (42.0-75.0); Hemoglobin 8.9 g/dL (12.0-16.0); Mean Corpuscular HGB CONC 32.6 g/dL (32.0-36.0); Mean Corpuscular Hemoglobin 30.4 pg (27.0-31.0); Mean Corpuscular Volume 93.3 fl (81.0-99.0); Mean Platelet Volume 6.6 fL (7.4-10.4); Platelet Count 347 thou/uL (130-400); RBC Distribution Width 13.5 % (11.5-14.5); Red Blood Cell (RBC) Count 2.93 mill/uL (4.20-5.40); White Blood Cell (WBC) Count 16.6 thou/uL (4.8-10.8)
[2017-07-05 06:24] LABS: ALT (SGPT) 74 U/L (8-55); AST (SGOT) 64 U/L (5-34); Albumin 2.9 g/dL (3.4-4.8); Alkaline Phosphatase 118 U/L (40-150); Anion Gap 12 mmol/L (10-20); BUN (Urea Nitrogen) 32 mg/dL (9.8-20.1); Bilirubin, Total 0.7 mg/dL (0.2-1.2); Calc. Creatinine Clearance 47 mL/min (70-130); Calcium 8.9 mg/dL (7.8-10.44); Carbon Dioxide 30 mmol/L (23-31); Chloride 99 mmol/L (98-107); Estimated GFR-MDRD 31; Globulin 3.2 g/dL (2.4-3.5); Glucose 149 mg/dL (83-110); Potassium 4.9 mmol/L (3.5-5.1); Protein, Total 6.1 g/dL (6.0-8.3); Sodium 136 mmol/L (136-145)
[2017-07-05] MEDS: Levothyroxine Sodium 125 MCG TAB PO SCH (06:34)
[2017-07-05] MEDS: Polyethylene Glycol 3350 17 GM Packet PO SCH (09:07)
[2017-07-05] MEDS: Carvedilol 25 MG TAB PO SCH ×3 (09:07→18:10)
[2017-07-05] MEDS: Dronedarone HCl 400 MG TAB PO SCH ×2 (09:07→18:11)
[2017-07-05] MEDS: Aspirin 81 mg Enteric Coated Tablet PO SCH (09:08)
[2017-07-05] MEDS: Clopidogrel Bisulfate 75 MG TAB PO SCH (09:08)
--- NOTE | 2017-07-05 13:57 | PDOC.PN ---
- Subjective Encounter Start Date: 07/05/17 Encounter Start Time: 08:40 Pt seen for followup re: TIA. Feels better. No nausea or vomiting. No fevers or chills. - Objective Resuscitation Status: Resuscitation Status FULL:Full Resuscitation MAR Reviewed: Yes Vital Signs & Weight: Vital Signs (12 hours) Temp Pulse Resp BP Pulse Ox 07/05/17 11:35 98.6 F 72 16 102/66 96 07/05/17 08:05 98.5 F 78 18 99/66 96 07/05/17 04:00 98.3 F 83 19 103/65 91 L Weight Admit Weight 227 lb 6.4 oz Weight 227 lb 6.4 oz I&O: 07/04/17 07/05/17 07/06/17 06:59 06:59 07:59 Intake Total 160 860 Output Total 230 555 Balance -70 305 Result Diagrams: 07/05/17 05:16 07/05/17 05:16 Additional Labs: Accuchecks 07/05/17 07/05/17 07/04/17 11:37 05:44 21:00 POC Glucose 156 H 145 H 124 H 07/04/17 16:58 POC Glucose 195 H Phys Exam - Physical Examination Obese HEENT: moist MMs, oral pharynx no lesions Neck: supple Respiratory: clear to auscultation bilateral Cardiovascular: RRR Gastrointestinal: soft, non-tender, positive bowel sounds RUQ drain Neurological: moves all 4 limbs Psychiatric: normal affect Dx/Plan (1) TIA (transient ischemic attack) Status: Acute Comment: no residual symptoms (2) Acute cholecystitis Code(s): K81.0 - ACUTE CHOLECYSTITIS Status: Acute Comment: Continue antibiotics, leucocytosis improving, s/p cholecystectomy (3) Colic, biliary Code(s): K80.50 - CALCULUS OF BILE DUCT W/O CHOLANGITIS OR CHOLECYST W/O OBST Status: Acute Comment: s/p cholecystectomy 07/03/17 (4) Coronary artery disease Code(s): I25.10 - ATHSCL HEART DISEASE OF [place] CORONARY ARTERY W/O ANG PCTRS Status: Chronic Comment: Stable (5) DM type 2 (diabetes mellitus, type 2) Status: Chronic Comment: Continue accuchecks, insulin sliding scale (6) HLD (hyperlipidemia) Code(s): E78.5 - HYPERLIPIDEMIA, UNSPECIFIED Status: Chronic Comment: stable (7) HTN (hypertension) Code(s): I10 - ESSENTIAL (PRIMARY) HYPERTENSION Status: Chronic Comment: titrate antihypertensives as needed (8) Paroxysmal a-fib Code(s): I48.0 - PAROXYSMAL ATRIAL FIBRILLATION Status: Chronic Comment: Eliquis on hold - Plan continue antibiotics, out of bed/ambulate * . Discussed with Dr. Aguilar. He will recheck H&H to ensure hemoglobin is stable. If stable, he may decide to restart anticoagulation tomorrow evening. Review of Systems - Review of Systems Cardiovascular: negative: chest pain, palpitations, orthopnea, paroxysmal nocturnal dyspnea, edema, light headedness, other Gastrointestinal: negative: Nausea, Vomiting, Abdominal Pain, Diarrhea, Constipation, Melena, Hematochezia Neurological: negative: Weakness, Numbness, Incoordination, Change in Speech, Confusion, Seizures - Medications/Allergies Allergies/Adverse Reactions: Allergies Allergy/AdvReac Type Severity Reaction Status Date / Time cephalexin monohydrate Allergy Severe Hives Verified 04/02/17 11:15 [From Keflex] codeine Allergy Intermediate HALLUCINATI Verified 04/02/17 11:15 ONS Penicillins Allergy Intermediate Hives Verified 04/02/17 11:15 garlic AdvReac INTERFERS Verified 09/10/16 13:48 WITH HER MEDS yovany AdvReac INTERFERS Verified 09/10/16 13:48 WITH HER MEDS Medications: Current Medications Acetaminophen (Tylenol) 650 mg PO Q4H PRN PRN Reason: Headache/Fever or Pain Last Admin: 07/01/17 14:06 Dose: 650 mg Acetaminophen (Tylenol) 1,000 mg PO Q6H PRN PRN Reason: Moderate to Severe Pain (6-10) Al Hydroxide/Mg Hydroxide (Maalox) 30 ml PO Q6H PRN PRN Reason: Heartburn or Indigestion Aspirin (Ecotrin) 81 mg PO DAILY [facility] Last Admin: 07/05/17 09:08 Dose: 81 mg Benzonatate (Tessalon) 100 mg PO Q4H PRN PRN Reason: Cough Calcium Carbonate (Tums) 1,000 mg PO Q4H PRN PRN Reason: Heartburn or Indigestion Carvedilol (Coreg) 25 mg PO BID-[facility] Last Admin: 07/04/17 16:11 Dose: Not Given Clopidogrel Bisulfate (Plavix) 75 mg PO DAILY [facility] Last Admin: 07/05/17 09:08 Dose: 75 mg Dextrose/Water (Dextrose 50%) 25 gm SLOW IVP PRN PRN PRN Reason: Hypoglycemia Dronedarone (Multaq) 400 mg PO BID-[facility] Last Admin: 07/05/17 09:07 Dose: 400 mg Estropipate (Ogen) 0.75 mg PO DAILY [facility] Last Admin: 07/05/17 09:06 Dose: 0.75 mg Glucagon (Glucagon) 1 mg IM PRN PRN PRN Reason: Hypoglycemia Guaifenesin (Robitussin Sf) 200 mg PO Q4H PRN PRN Reason: Cough Hydralazine HCl (Apresoline) 10 mg SLOW IVP Q4H PRN PRN Reason: BP > 180/90 Dextrose/Water (D5w) 1,000 mls @ 0 mls/hr IV .Q0M PRN; As Directed PRN Reason: Hypoglycemia Levofloxacin 500 mg/ Device 100 mls @ 100 mls/hr IVPB Q24HR [facility] Last Admin: 07/04/17 16:24 Dose: 100 mls Insulin Human Lispro (Humalog) 0 units SC .MODERATE SLIDING SC PRN PRN Reason: Moderate Correctional Scale Insulin Human Lispro (Humalog) 0 units SC .BEDTIME SLIDING SC PRN PRN Reason: Bedtime Correctional Scale Isosorbide Mononitrate (Imdur) 60 mg PO DAILY [facility] Last Admin: 07/05/17 09:08 Dose: Not Given Levothyroxine Sodium (Synthroid) 125 mcg PO 0600 [facility] Last Admin: 07/05/17 06:34 Dose: 125 mcg Loratadine (Claritin) 10 mg PO DAILYPRN PRN PRN Reason: Sinus Symptoms Lorazepam (Ativan) 1 mg PO Q4H PRN PRN Reason: Anxiety/Agitation Losartan Potassium (Cozaar) 50 mg PO 1500 [facility] Last Admin: 07/04/17 16:11 Dose: Not Given Nitroglycerin (Nitrostat) 0.4 mg SL Q5MIN PRN PRN Reason: Chest Pain Ondansetron HCl (Zofran) 4 mg IVP Q6H PRN PRN Reason: Nausea/Vomiting Last Admin: 07/01/17 18:28 Dose: 4 mg Ondansetron HCl (Zofran Odt) 4 mg PO Q6H PRN PRN Reason: Nausea/Vomiting Last Admin: 07/03/17 20:45 Dose: 4 mg Ondansetron HCl (Zofran Odt) 8 mg SL BID PRN PRN Reason: Nausea/Vomiting Last Admin: 07/03/17 17:36 Dose: 8 mg Pantoprazole Sodium (Protonix) 40 mg PO DAILY [facility] Last Admin: 07/05/17 09:07 Dose: 40 mg Polyethylene Glycol (Miralax) 17 gm PO DAILY [facility] Last Admin: 07/05/17 09:07 Dose: 17 gm Senna (Senokot) 2 tab PO HSPRN PRN PRN Reason: Constipation Simvastatin (Zocor) 20 mg PO HS [facility] Last Admin: 07/04/17 22:07 Dose: Not Given Sodium Chloride (Flush - Normal Saline) 10 ml IVF PRN PRN PRN Reason: Saline Flush Tramadol HCl (Ultram) 50 mg PO Q6H PRN PRN Reason: Moderate Pain (4-6) Tramadol HCl (Ultram) 100 mg PO Q6H PRN PRN Reason: Severe Pain (7-10) Last Admin: 07/05/17 09:12 Dose: 100 mg
[2017-07-05] MEDS: Losartan 25 MG TAB PO SCH (15:40)
--- NOTE | 2017-07-05 15:45 | PRG ---
DATE OF SERVICE: 07/05/2017 SUBJECTIVE: Ms. Flora Anthony is a 76-year-old female now moving to the surgical floor. OBJECTIVE: VITAL SIGNS: 98.6 degrees, 72, 16, 102/66. Her blood pressure on initial presentation was 124-134 s ystolic. LUNGS: Clear to auscultation. CARDIAC: Regular rate and rhythm without murmur or gallop. ABDOMEN: Soft and nontender. LABORATORY DATA: This morning, her labs revealed white count of 16,000 down from 20,000 yesterday, h emoglobin 8.9 down from 9.9 yesterday, and 10.4 the day before. Platelet count is normal. Basic met abolic profile was normal. She has chronic kidney disease. BUN and creatinine are 32 and 1.6 respec tfully. Accu-Cheks 145-158. Her mobility is better. Her drain output is 215 mL in the last 24 hour s. It appears serosanguineous. ASSESSMENT AND PLAN: 1. Severe cholecystitis. She has a drain in place. It is serosanguineous in nature. We would plan to remove the drain today. We would monitor her hemoglobin today. She is slightly anemic. We would check her hemoglobin later today and in the morning. She is typed and screened. She is not in need of a transfusion at this time. Her blood pressure is relatively low, but she is not orthost atic and she is ambulating with a walking team. We would hold her anticoagulation at this time until we are sure that her hemoglobin is stable, possibly resuming her Eliquis most likely Friday and most likely not tomorrow. Expect discharge in the next 48-72 hours. Continue intravenous antibiotics.
[2017-07-05 18:10] LABS: #Basophils 0.1 thou/uL (0.0-0.2); #Eosinphils 0.1 thou/uL (0.0-0.7); #Lymphocytes 2.7 thou/uL (1.20-3.40); #Monocytes 1.3 thou/uL (0.11-0.59); #Neutrophils 11.2 thou/uL (1.40-6.50); %Basophils 0.4 % (0.0-1.0); %Eosinophils 0.5 % (0.0-10.0); %Lymphocytes 17.5 % (21.0-51.0); %Monocytes 8.3 % (0.0-10.0); %Neutrophils 73.4 % (42.0-75.0); Hemoglobin 8.9 g/dL (12.0-16.0); Mean Corpuscular HGB CONC 32.2 g/dL (32.0-36.0); Mean Corpuscular Hemoglobin 30.5 pg (27.0-31.0); Mean Corpuscular Volume 94.7 fl (81.0-99.0); Mean Platelet Volume 6.7 fL (7.4-10.4); Platelet Count 336 thou/uL (130-400); RBC Distribution Width 13.6 % (11.5-14.5); Red Blood Cell (RBC) Count 2.92 mill/uL (4.20-5.40); White Blood Cell (WBC) Count 15.3 thou/uL (4.8-10.8)
[2017-07-05] MEDS: Acetaminophen 500 MG TAB PO PRN (20:14)
[2017-07-05] MEDS: Simvastatin 20 MG TAB PO SCH (20:16)
[2017-07-05] MEDS: Ondansetron HCl/PF 4 MG/2 ML Vial IVP PRN (21:15)
[2017-07-05] MEDS ORDERED: Cyclobenzaprine 10 MG TAB PO SCH (23:00)
[2017-07-06] MEDS ORDERED: Fentanyl 100 MCG/2 ML VIAL SLOW IVP SCH (01:30)
[2017-07-06] MEDS: Acetaminophen 500 MG TAB PO PRN (04:02)
[2017-07-06] MEDS: traMADol HCl 50 MG TAB PO PRN ×3 (04:02→17:55)
[2017-07-06 04:38] LABS: #Eosinphils 0.1 thou/uL (0.0-0.7); #Neutrophils 15.5 thou/uL (1.40-6.50); %Basophils 0.1 % (0.0-1.0); %Eosinophils 0.4 % (0.0-10.0); %Lymphocytes 10.7 % (21.0-51.0); %Monocytes 5.2 % (0.0-10.0); %Neutrophils 83.7 % (42.0-75.0); Hemoglobin 9.1 g/dL (12.0-16.0); Mean Corpuscular Hemoglobin 30.9 pg (27.0-31.0); Mean Corpuscular Volume 93.7 fl (81.0-99.0); Mean Platelet Volume 6.4 fL (7.4-10.4); Platelet Count 387 thou/uL (130-400); RBC Distribution Width 13.4 % (11.5-14.5); Red Blood Cell (RBC) Count 2.93 mill/uL (4.20-5.40); White Blood Cell (WBC) Count 18.5 thou/uL (4.8-10.8)
[2017-07-06] MEDS: Levothyroxine Sodium 125 MCG TAB PO SCH (06:59)
[2017-07-06] MEDS: Carvedilol 25 MG TAB PO SCH ×2 (09:18→16:58)
[2017-07-06] MEDS: Clopidogrel Bisulfate 75 MG TAB PO SCH (09:19)
[2017-07-06] MEDS: Aspirin 81 mg Enteric Coated Tablet PO SCH (09:20)
[2017-07-06] MEDS: Dronedarone HCl 400 MG TAB PO SCH ×2 (09:20→16:53)
[2017-07-06] MEDS: Polyethylene Glycol 3350 17 GM Packet PO SCH (09:21)
--- NOTE | 2017-07-06 11:02 | PDOC.PN ---
- Subjective Encounter Start Date: 07/06/17 Encounter Start Time: 10:30 Subjective: feels better, less pain after drain removal. no appetite, no bm - Objective Resuscitation Status: Resuscitation Status FULL:Full Resuscitation MAR Reviewed: Yes Vital Signs & Weight: Vital Signs (12 hours) Temp Pulse Resp BP BP Pulse Ox 07/06/17 08:05 97.8 F 64 18 114/72 98 07/06/17 04:15 97.8 F 58 L 18 110/70 97 Weight Admit Weight 227 lb 6.4 oz Weight 227 lb 6.4 oz I&O: 07/05/17 07/06/17 07/07/17 05:59 06:59 06:59 Intake Total Output Total Balance Result Diagrams: 07/06/17 03:53 07/05/17 05:16 Additional Labs: Accuchecks 07/06/17 07/05/17 07/05/17 05:52 20:41 16:33 POC Glucose 169 H 128 H 128 H 07/05/17 11:37 POC Glucose 156 H Phys Exam - Physical Examination HEENT: PERRLA, moist MMs, sclera anicteric Neck: supple, full ROM Respiratory: no wheezing, no rhonchi, clear to auscultation bilateral Cardiovascular: RRR Gastrointestinal: soft, positive bowel sounds Musculoskeletal: no edema Neurological: non-focal, moves all 4 limbs Psychiatric: normal affect, A&O x 3 Skin: no rash Deviation from normal: bruises around incisions Dx/Plan (1) Acute cholecystitis Code(s): K81.0 - ACUTE CHOLECYSTITIS Status: Resolved Comment: Continue antibiotics, leucocytosis improving, s/p cholecystectomy (2) TIA (transient ischemic attack) Status: Resolved Comment: no residual symptoms (3) Constipation Code(s): K59.00 - CONSTIPATION, UNSPECIFIED Status: Chronic Comment: improving (4) Hypoglycemia Code(s): E16.2 - HYPOGLYCEMIA, UNSPECIFIED Status: Resolved (5) Hypokalemia Code(s): E87.6 - HYPOKALEMIA Status: Resolved (6) Nausea and vomiting Code(s): R11.2 - NAUSEA WITH VOMITING, UNSPECIFIED Status: Resolved (7) Coronary artery disease Code(s): I25.10 - ATHSCL HEART DISEASE OF [place] CORONARY ARTERY W/O ANG PCTRS Status: Chronic Comment: Stable (8) DM type 2 (diabetes mellitus, type 2) Status: Chronic Comment: Continue accuchecks, insulin sliding scale (9) HLD (hyperlipidemia) Code(s): E78.5 - HYPERLIPIDEMIA, UNSPECIFIED Status: Chronic Comment: stable (10) HTN (hypertension) Code(s): I10 - ESSENTIAL (PRIMARY) HYPERTENSION Status: Chronic Comment: titrate antihypertensives as needed (11) Morbid obesity with BMI of 40.0-44.9, adult Code(s): E66.01 - MORBID (SEVERE) OBESITY DUE TO EXCESS CALORIES; Z68.41 - BODY MASS INDEX (BMI) 40.0-44.9, ADULT Status: Chronic (12) Paroxysmal a-fib Code(s): I48.0 - PAROXYSMAL ATRIAL FIBRILLATION Status: Chronic Comment: Eliquis on hold - Plan cont current plan of care, continue antibiotics, PT/OT, out of bed/ambulate, DVT proph w/SCDs Restart eliquis for paroxysmal afib once cleared by Surgical team. -: otherwise she is progressing well. disposition per Surgery. * .
--- NOTE | 2017-07-06 12:29 | PRG ---
DATE OF SERVICE: 07/06/2017 SUBJECTIVE: Ms. Flora Anthony is doing well today. She complains of pain since her drain was remove d last night. She complains of pain at the old drain site. She is tolerating her diet. OBJECTIVE: VITAL SIGNS: Temperature 97.8 degrees, pulse 64, blood pressure 114/72. LUNGS: Clear to auscultation. CARDIAC: Regular rate and rhythm without murmur or gallop. ABDOMEN: Soft and nontender. LABORATORY DATA: This morning, her hemoglobin was 9.1, stable from yesterday, 8.9 in the morning and evening. Her basic metabolic profile was normal. Accu-Cheks are in good control. ASSESSMENT AND PLAN: The patient is doing well, status post laparoscopic cholecystectomy for severe cholecystitis. I would hold her Eliquis today and resume it tomorrow morning and we will check CBC i n morning. From a surgical standpoint, she could be discharged home Friday or Friday. The patient is insisting on going home. She has family to assist her at home. We will ask gearcase assembler to arrang e home health or any other help at home such as therapy. She will follow up in my office in 2-3 week s.
[2017-07-06] MEDS: Losartan 25 MG TAB PO SCH (16:20)
[2017-07-06] MEDS: Simvastatin 20 MG TAB PO SCH (20:50)
[2017-07-06] MEDS: Apixaban 5 MG TAB PO SCH (20:50)
[2017-07-06] MEDS ORDERED: Apixaban 5 MG TAB PO SCH (21:00)
[2017-07-07] MEDS: Levothyroxine Sodium 125 MCG TAB PO SCH (05:37)
[2017-07-07] MEDS: traMADol HCl 50 MG TAB PO PRN ×2 (05:38→15:59)
[2017-07-07 05:39] LABS: #Eosinphils 0.3 thou/uL (0.0-0.7); #Lymphocytes 2.3 thou/uL (1.20-3.40); #Monocytes 1.3 thou/uL (0.11-0.59); #Neutrophils 11.3 thou/uL (1.40-6.50); %Basophils 0.1 % (0.0-1.0); %Eosinophils 2.2 % (0.0-10.0); %Monocytes 8.7 % (0.0-10.0); Mean Corpuscular HGB CONC 32.3 g/dL (32.0-36.0); Mean Corpuscular Hemoglobin 30.6 pg (27.0-31.0); Mean Corpuscular Volume 94.7 fl (81.0-99.0); Mean Platelet Volume 6.8 fL (7.4-10.4); Platelet Count 326 thou/uL (130-400); RBC Distribution Width 13.8 % (11.5-14.5); Red Blood Cell (RBC) Count 2.62 mill/uL (4.20-5.40); White Blood Cell (WBC) Count 15.3 thou/uL (4.8-10.8)
[2017-07-07] MEDS: Apixaban 5 MG TAB PO SCH ×2 (08:37→20:38)
[2017-07-07] MEDS: Clopidogrel Bisulfate 75 MG TAB PO SCH (08:37)
[2017-07-07] MEDS: Dronedarone HCl 400 MG TAB PO SCH ×2 (08:37→15:59)
[2017-07-07] MEDS: Aspirin 81 mg Enteric Coated Tablet PO SCH (08:38)
[2017-07-07] MEDS: Polyethylene Glycol 3350 17 GM Packet PO SCH (08:38)
[2017-07-07] MEDS: Carvedilol 25 MG TAB PO SCH ×2 (08:49→16:07)
--- NOTE | 2017-07-07 12:22 | PDOC.PN ---
- Subjective Encounter Start Date: 07/07/17 Encounter Start Time: 11:45 Subjective: no new complaints, sob - Objective Resuscitation Status: Resuscitation Status FULL:Full Resuscitation MAR Reviewed: Yes Vital Signs & Weight: Vital Signs (12 hours) Temp Pulse Resp BP BP Pulse Ox 07/07/17 11:31 97.9 F 63 16 107/70 93 L 07/07/17 11:21 94 L 07/07/17 11:20 78 L 07/07/17 09:28 93 L 07/07/17 09:27 86 L 07/07/17 08:34 98.1 F 62 20 95 07/07/17 07:29 98.1 F 62 20 98/66 95 07/07/17 03:27 98.1 F 96 16 102/65 98 Weight Admit Weight 227 lb 6.4 oz Weight 227 lb 6.4 oz I&O: 07/06/17 07/07/17 07/08/17 06:59 06:59 06:59 Intake Total 1520 Balance 1520 Result Diagrams: 07/07/17 05:28 07/05/17 05:16 Additional Labs: Accuchecks 07/07/17 07/07/17 07/06/17 11:34 06:04 20:17 POC Glucose 157 H 148 H 139 H 07/06/17 15:56 POC Glucose 133 H Phys Exam - Physical Examination Constitutional: NAD HEENT: PERRLA, sclera anicteric Neck: supple, full ROM Respiratory: no wheezing, no rhonchi Cardiovascular: RRR Gastrointestinal: soft, non-tender Musculoskeletal: no edema Neurological: non-focal, moves all 4 limbs Psychiatric: normal affect, A&O x 3 Skin: no rash Dx/Plan (1) Acute cholecystitis Code(s): K81.0 - ACUTE CHOLECYSTITIS Status: Resolved Comment: Continue antibiotics, leucocytosis improving, s/p cholecystectomy (2) TIA (transient ischemic attack) Status: Resolved Comment: no residual symptoms (3) Constipation Code(s): K59.00 - CONSTIPATION, UNSPECIFIED Status: Chronic Comment: improving (4) Hypoglycemia Code(s): E16.2 - HYPOGLYCEMIA, UNSPECIFIED Status: Resolved (5) Hypokalemia Code(s): E87.6 - HYPOKALEMIA Status: Resolved (6) Nausea and vomiting Code(s): R11.2 - NAUSEA WITH VOMITING, UNSPECIFIED Status: Resolved (7) Coronary artery disease Code(s): I25.10 - ATHSCL HEART DISEASE OF [place] CORONARY ARTERY W/O ANG PCTRS Status: Chronic Comment: Stable (8) DM type 2 (diabetes mellitus, type 2) Status: Chronic Comment: Continue accuchecks, insulin sliding scale (9) HLD (hyperlipidemia) Code(s): E78.5 - HYPERLIPIDEMIA, UNSPECIFIED Status: Chronic Comment: stable (10) HTN (hypertension) Code(s): I10 - ESSENTIAL (PRIMARY) HYPERTENSION Status: Chronic Comment: titrate antihypertensives as needed (11) Morbid obesity with BMI of 40.0-44.9, adult Code(s): E66.01 - MORBID (SEVERE) OBESITY DUE TO EXCESS CALORIES; Z68.41 - BODY MASS INDEX (BMI) 40.0-44.9, ADULT Status: Chronic (12) Paroxysmal a-fib Code(s): I48.0 - PAROXYSMAL ATRIAL FIBRILLATION Status: Chronic Comment: Eliteres[employer] on hold (13) ABAD (acute kidney injury) Code(s): N17.9 - ACUTE KIDNEY FAILURE, UNSPECIFIED Status: Acute - Plan cont current plan of care, respiratory therapy fluid resuscitation and neb albuterol. re check creatinine * .
[2017-07-07] MEDS: Albuterol Sulfate 2.5 mg/3 ml Neb NEB SCH ×2 (13:17→23:23)
[2017-07-07] MEDS: Sodium Chloride 0.9% 1,000 ML IV SCH ×2 (13:40→20:38)
[2017-07-07] MEDS: Losartan 25 MG TAB PO SCH (15:59)
[2017-07-07] MEDS: Simvastatin 20 MG TAB PO SCH (20:38)
--- NOTE | 2017-07-07 20:48 | PRG ---
DATE OF SERVICE: 07/07/2017 SUBJECTIVE: Ms. Anthony is doing well today. She is eating well. OBJECTIVE: VITAL SIGNS: Temperature 98.9 degrees, heart rate 70. GENERAL: Overall, the patient is doing well. Exam is unchanged. LUNGS: Clear to auscultation. ABDOMEN: Soft, nontender. LABORATORY DATA: White count is down to 15,000, hemoglobin is stable at 8. The patient's strength is improving. Hopefully, she will be discharged home in the next day or two. We will check a CBC in the morning. Continue to monitor that. We will start her on iron. She has been started back on her Eliquis.
[2017-07-08 04:20] LABS: #Eosinphils 0.4 thou/uL (0.0-0.7); #Lymphocytes 2.8 thou/uL (1.20-3.40); #Monocytes 1.2 thou/uL (0.11-0.59); #Neutrophils 9.7 thou/uL (1.40-6.50); %Basophils 0.1 % (0.0-1.0); %Eosinophils 3.1 % (0.0-10.0); %Lymphocytes 19.8 % (21.0-51.0); %Monocytes 8.7 % (0.0-10.0); %Neutrophils 68.2 % (42.0-75.0); Hemoglobin 7.7 g/dL (12.0-16.0); Mean Corpuscular Hemoglobin 31.1 pg (27.0-31.0); Mean Corpuscular Volume 94.1 fl (81.0-99.0); Mean Platelet Volume 6.5 fL (7.4-10.4); Platelet Count 370 thou/uL (130-400); RBC Distribution Width 14.2 % (11.5-14.5); Red Blood Cell (RBC) Count 2.48 mill/uL (4.20-5.40); White Blood Cell (WBC) Count 14.2 thou/uL (4.8-10.8)
[2017-07-08] MEDS: Levothyroxine Sodium 125 MCG TAB PO SCH (05:28)
[2017-07-08] MEDS: traMADol HCl 50 MG TAB PO PRN ×2 (05:30→20:40)
[2017-07-08] MEDS: Albuterol Sulfate 2.5 mg/3 ml Neb NEB SCH (07:21)
[2017-07-08] MEDS: Polyethylene Glycol 3350 17 GM Packet PO SCH (08:19)
[2017-07-08] MEDS: Ferrous Sulfate 325 MG TAB PO SCH ×2 (08:19→18:06)
[2017-07-08] MEDS: Carvedilol 25 MG TAB PO SCH ×2 (08:20→18:07)
[2017-07-08] MEDS: Dronedarone HCl 400 MG TAB PO SCH ×2 (08:20→18:06)
[2017-07-08] MEDS: Aspirin 81 mg Enteric Coated Tablet PO SCH (08:20)
[2017-07-08] MEDS: Clopidogrel Bisulfate 75 MG TAB PO SCH (08:20)
--- NOTE | 2017-07-08 12:32 | PDOC.PN ---
- Subjective Encounter Start Date: 07/08/17 Encounter Start Time: 12:30 Subjective: PLEASANT AND COMFORTABLE ON ROOM AIR. EATING BETTER - Objective Resuscitation Status: Resuscitation Status FULL:Full Resuscitation MAR Reviewed: Yes Vital Signs & Weight: Vital Signs (12 hours) Temp Pulse Resp BP BP Pulse Ox 07/08/17 12:13 99.2 F 73 16 95/62 90 L 07/08/17 08:04 97.8 F 68 18 91/60 92 L 07/08/17 08:00 97.8 F 68 18 92 L 07/08/17 03:20 98.9 F 76 18 110/70 93 L 07/08/17 02:14 98 Weight Admit Weight 227 lb 6.4 oz Weight 227 lb 6.4 oz I&O: 07/07/17 07/08/17 07/09/17 06:59 06:59 06:59 Intake Total 1520 2612 Balance 1520 2612 Result Diagrams: 07/08/17 04:05 07/05/17 05:16 Additional Labs: Accuchecks 07/08/17 07/08/17 07/07/17 11:32 05:33 16:04 POC Glucose 147 H 161 H 143 H Phys Exam - Physical Examination Constitutional: NAD HEENT: PERRLA, moist MMs, sclera anicteric Neck: supple, full ROM Respiratory: no wheezing, no rhonchi, clear to auscultation bilateral Cardiovascular: irregular Gastrointestinal: soft, non-tender, no distention Musculoskeletal: no edema Neurological: non-focal, moves all 4 limbs Psychiatric: normal affect, A&O x 3 Skin: no rash Dx/Plan (1) Acute cholecystitis Code(s): K81.0 - ACUTE CHOLECYSTITIS Status: Resolved Comment: Continue antibiotics, leucocytosis improving, s/p cholecystectomy (2) TIA (transient ischemic attack) Status: Resolved Comment: no residual symptoms (3) Constipation Code(s): K59.00 - CONSTIPATION, UNSPECIFIED Status: Chronic Comment: improving (4) Coronary artery disease Code(s): I25.10 - ATHSCL HEART DISEASE OF [place] CORONARY ARTERY W/O ANG PCTRS Status: Chronic Comment: Stable (5) DM type 2 (diabetes mellitus, type 2) Status: Chronic Comment: Continue accuchecks, insulin sliding scale (6) HLD (hyperlipidemia) Code(s): E78.5 - HYPERLIPIDEMIA, UNSPECIFIED Status: Chronic Comment: stable (7) HTN (hypertension) Code(s): I10 - ESSENTIAL (PRIMARY) HYPERTENSION Status: Chronic Comment: titrate antihypertensives as needed (8) Morbid obesity with BMI of 40.0-44.9, adult Code(s): E66.01 - MORBID (SEVERE) OBESITY DUE TO EXCESS CALORIES; Z68.41 - BODY MASS INDEX (BMI) 40.0-44.9, ADULT Status: Chronic (9) Paroxysmal a-fib Code(s): I48.0 - PAROXYSMAL ATRIAL FIBRILLATION Status: Chronic Comment: Eliquis on hold (10) ABAD (acute kidney injury) Code(s): N17.9 - ACUTE KIDNEY FAILURE, UNSPECIFIED Status: Acute - Plan CHECK BMP IN AM FOR CR LEVEL. OXYGENATING BETTER ON RA. -: DISPOSITION PER SURGICAL SERVICE * .
[2017-07-08] MEDS: Losartan 25 MG TAB PO SCH (15:08)
--- NOTE | 2017-07-08 16:51 | PRG ---
DATE OF SERVICE: 07/08/2017 SUBJECTIVE: Flora Anthony is doing well today. Patient is tolerating her diet. She feels better. She is ambulating better. Hemoglobin this morning 7.7, slightly diminished from yesterday. I did ho ld her Eliquis today until we recheck her hemoglobin tonight and in the morning. If it is stable, ravinder jimenez could be discharged home tomorrow. She has lost her IV. We will discontinue her IV antibiotics, I V meds and not restart her IV. Anticipate discharge home tomorrow after we check another hemoglobin. OBJECTIVE: LUNGS: Clear to auscultation. CARDIAC: Regular rate and rhythm without murmur or gallop. ABDOMEN: Soft, nontender.
[2017-07-08] MEDS: Sodium Chloride 0.9% 1,000 ML IV SCH (18:41)
[2017-07-08 20:02] LABS: Band 5 % (5-11); Eosinophils 1 % (0-10); Hemoglobin 7.9 g/dL (12.0-16.0); Lymphocytes 11 % (21-51); MDiff Complete? YES; Mean Corpuscular HGB CONC 32.3 g/dL (32.0-36.0); Mean Corpuscular Hemoglobin 30.8 pg (27.0-31.0); Mean Corpuscular Volume 95.4 fl (81.0-99.0); Mean Platelet Volume 6.5 fL (7.4-10.4); Metamyelocyte 1 % (0-0); Monocytes 5 % (0-10); Myelocyte 1 % (0-0); Neutrophil 76 % (42-75); PLT Morphology Comment Appears Increased; Platelet Count 421 thou/uL (130-400); Polychromasia SLIGHT = 2-3 cells (100X) (0-2/hpf); RBC Distribution Width 14.3 % (11.5-14.5); Red Blood Cell (RBC) Count 2.56 mill/uL (4.20-5.40); White Blood Cell (WBC) Count 14.9 thou/uL (4.8-10.8)
[2017-07-08] MEDS: Simvastatin 20 MG TAB PO SCH (20:40)
[2017-07-09] MEDS: Sodium Chloride 0.9% 1,000 ML IV SCH (01:28)
[2017-07-09] MEDS: Levothyroxine Sodium 125 MCG TAB PO SCH (05:03)
[2017-07-09 05:54] LABS: #Eosinphils 0.3 thou/uL (0.0-0.7); #Lymphocytes 2.7 thou/uL (1.20-3.40); #Monocytes 1.2 thou/uL (0.11-0.59); #Neutrophils 8.5 thou/uL (1.40-6.50); %Basophils 0.1 % (0.0-1.0); %Eosinophils 2.1 % (0.0-10.0); %Monocytes 9.5 % (0.0-10.0); %Neutrophils 67.3 % (42.0-75.0); Hemoglobin 7.5 g/dL (12.0-16.0); Mean Corpuscular HGB CONC 32.8 g/dL (32.0-36.0); Mean Corpuscular Hemoglobin 30.9 pg (27.0-31.0); Mean Corpuscular Volume 94.2 fl (81.0-99.0); Mean Platelet Volume 6.4 fL (7.4-10.4); Platelet Count 399 thou/uL (130-400); RBC Distribution Width 14.3 % (11.5-14.5); Red Blood Cell (RBC) Count 2.44 mill/uL (4.20-5.40); White Blood Cell (WBC) Count 12.6 thou/uL (4.8-10.8)
[2017-07-09 06:20] LABS: Anion Gap 12 mmol/L (10-20); BUN (Urea Nitrogen) 18 mg/dL (9.8-20.1); Calc. Creatinine Clearance 85 mL/min (70-130); Calcium 8.3 mg/dL (7.8-10.44); Carbon Dioxide 27 mmol/L (23-31); Chloride 101 mmol/L (98-107); Estimated GFR-MDRD 61; Glucose 126 mg/dL (83-110); Potassium 3.8 mmol/L (3.5-5.1); Sodium 136 mmol/L (136-145)
[2017-07-09] MEDS: Aspirin 81 mg Enteric Coated Tablet PO SCH (08:32)
[2017-07-09] MEDS: Clopidogrel Bisulfate 75 MG TAB PO SCH (08:32)
[2017-07-09] MEDS: Polyethylene Glycol 3350 17 GM Packet PO SCH (08:33)
[2017-07-09] MEDS: Ferrous Sulfate 325 MG TAB PO SCH (08:33)
[2017-07-09] MEDS: Dronedarone HCl 400 MG TAB PO SCH (08:33)
[2017-07-09] MEDS: Carvedilol 25 MG TAB PO SCH (08:33)
--- NOTE | 2017-07-09 08:51 | PDOC.PN ---
- Subjective Encounter Start Date: 07/09/17 Encounter Start Time: 08:49 Subjective: no new complaints - Objective Resuscitation Status: Resuscitation Status FULL:Full Resuscitation MAR Reviewed: Yes Vital Signs & Weight: Vital Signs (12 hours) Temp Pulse Resp BP BP Pulse Ox 07/09/17 07:35 98.6 F 59 L 16 108/69 99 07/09/17 04:16 98.3 F 61 16 110/71 98 07/09/17 00:00 99.1 F 72 16 104/70 96 Weight Admit Weight 227 lb 6.4 oz Weight 227 lb 6.4 oz I&O: 07/08/17 07/09/17 07/10/17 06:59 06:59 06:59 Intake Total 2612 950 Balance 2612 950 Result Diagrams: 07/09/17 05:06 07/09/17 05:06 Additional Labs: Accuchecks 07/08/17 07/08/17 07/08/17 21:02 16:16 11:32 POC Glucose 142 H 130 H 147 H Phys Exam - Physical Examination Constitutional: NAD HEENT: PERRLA, moist MMs, sclera anicteric Neck: supple, full ROM Respiratory: no rhonchi Cardiovascular: no significant murmur Gastrointestinal: soft, non-tender Neurological: moves all 4 limbs Psychiatric: normal affect, A&O x 3 Skin: normal turgor Dx/Plan (1) Acute cholecystitis Code(s): K81.0 - ACUTE CHOLECYSTITIS Status: Resolved Comment: Continue antibiotics, leucocytosis improving, s/p cholecystectomy (2) TIA (transient ischemic attack) Status: Resolved Comment: no residual symptoms (3) Constipation Code(s): K59.00 - CONSTIPATION, UNSPECIFIED Status: Chronic Comment: improving (4) Coronary artery disease Code(s): I25.10 - ATHSCL HEART DISEASE OF [place] CORONARY ARTERY W/O ANG PCTRS Status: Chronic Comment: Stable (5) DM type 2 (diabetes mellitus, type 2) Status: Chronic Comment: Continue accuchecks, insulin sliding scale (6) HLD (hyperlipidemia) Code(s): E78.5 - HYPERLIPIDEMIA, UNSPECIFIED Status: Chronic Comment: stable (7) HTN (hypertension) Code(s): I10 - ESSENTIAL (PRIMARY) HYPERTENSION Status: Chronic Comment: titrate antihypertensives as needed (8) Morbid obesity with BMI of 40.0-44.9, adult Code(s): E66.01 - MORBID (SEVERE) OBESITY DUE TO EXCESS CALORIES; Z68.41 - BODY MASS INDEX (BMI) 40.0-44.9, ADULT Status: Chronic (9) Paroxysmal a-fib Code(s): I48.0 - PAROXYSMAL ATRIAL FIBRILLATION Status: Chronic Comment: Eliquis on hold (10) ABAD (acute kidney injury) Code(s): N17.9 - ACUTE KIDNEY FAILURE, UNSPECIFIED Status: Acute - Plan cont current plan of care decreased coreg to 12.5 bid -: HOME once cleared by surgical service * .
--- NOTE | 2017-07-09 14:01 | PRG ---
DATE OF SERVICE: 07/09/2017 Ms. Anthony is doing well today. She remains afebrile. She is not orthostatic. She is ambulating. Her strength is improving. PHYSICAL EXAMINATION: VITAL SIGNS: Temperature 98.9 degrees, 66, 108/69 this morning. Hemoglobin 7.5, which is relatively stable the last days, white count 12.6. Overall, the patient is doing well. LUNGS: Clear to auscultation. CARDIAC: Regular rate and rhythm without murmur or gallop. ABDOMEN: Soft, nontender, no masses. The patient is stable for discharge. She can resume her Eliquis. I will see her in the next 2 weeks in the office[address] Dr. Hicks is able to see her should she need to stay in the hospital, but she is s table for discharge home with home therapy. She will be staying with her sister.
[2017-07-09] MEDS: traMADol HCl 50 MG TAB PO PRN (14:06)
[2017-07-09 16:11] VITALS: BP 110/69; TEMP 99
[2017-07-09] MEDS ORDERED: Carvedilol 6.25 MG TAB PO SCH (17:00)
[2017-07-09] MEDS ORDERED: Apixaban 5 MG TAB PO SCH (21:00)
--- NOTE | 2017-07-09 23:26 | DIS ---
DATE OF ADMISSION: 06/30/2017 DATE OF DISCHARGE: 07/09/2017 PRIMARY DISCHARGE DIAGNOSIS: Cholecystitis. SECONDARY DISCHARGE DIAGNOSES: 1. Chronic atrial fibrillation. 2. Coronary artery disease. 3. Hypothyroidism. 4. Debility. HOSPITAL COURSE: Patient is a 76-year-old female that presented with abdominal pain, nausea, vomitin g, and dizziness on 06/30/2017. Patient was seen and assessed by the surgical service. Patient was found to have cholecystitis. She underwent a laparoscopic cholecystectomy. Patient had also present ed complaining of dizziness. She was seen and assessed by the Neurology Service as well as Cardiolog y. An MRI was performed, which showed no acute disease. It was felt by the Neurology Service that t his was secondary to hypoglycemic episodes. She had a negative stroke workup. The Cardiology servic e commented that the patient will undergo echocardiogram, but they felt that there was no active ACS syndrome during this admission. Patient continued to heal well after the laparoscopic cholecystectom y. She was somewhat debilitated prior to admission and continue to be in the state during her hospit al stay. Patient requested that she would be discharged home and be sent to her sister's house who w ill assist her in regaining her strength. CONSULTANTS: Neurology, Cardiology, and General Surgery. PROCEDURES: Laparoscopic cholecystectomy, brain MRI, carotid Dopplers. RESULTS: Carotid Doppler showed no hemodynamically significant stenosis. Brain MRI showed chronic i schemic changes and the patient tolerated her laparoscopic cholecystectomy well and was deemed stable for discharge from the general surgeons' point of view. DISCHARGE MEDICATIONS: Please see medication rec list. We have resumed all her home medication incl uding Eliquis and Plavix. DISCHARGE ACTIVITY: As tolerated. DISCHARGE DIET: Heart healthy, low sodium. DISCHARGE FOLLOWUP INSTRUCTIONS: She is to follow up with the surgical clinic within 2 weeks. She i s also to follow up with her out of town primary care physician. PHYSICAL EXAMINATION: Upon discharge, GENERAL: She is in no acute distress. HEAD: Normocephalic, atraumatic. EYES: PERRL. CARDIAC: Irregularly irregular. LUNGS: Clear to auscultation. ABDOMEN: Obese, nontender, nondistended. EXTREMITIES: No clubbing, cyanosis. There is 1+ edema bilaterally.
== END 2017-07-09 17:10 | disposition home or self-care (01) | DRG 419 ==
LOC: ERS 11:36 → OBSVTOIN 16:12 → 2SE 16:12 → SURG A 07-04 17:21
PROVIDERS: ADMIT Internal Medicine; ATTEND Internal Medicine
PROC: 0FT44ZZ Resection of Gallbladder, Percutaneous Endoscopic Approach (ICD-10-PCS; principal; 2017-07-03)
DX: K80.10 Calculus of gallbladder with chronic cholecystitis without obstruction (principal); I48.0 Paroxysmal atrial fibrillation; D64.9 Anemia, unspecified; E11.9 Type 2 diabetes mellitus without complications; E03.9 Hypothyroidism, unspecified; E66.9 Obesity, unspecified; Z79.01 Long term (current) use of anticoagulants; Z79.82 Long term (current) use of aspirin; Z79.84 Long term (current) use of oral hypoglycemic drugs; Z68.39 Body mass index [BMI] 39.0-39.9, adult; I25.10 Atherosclerotic heart disease of native coronary artery without angina pectoris; Z95.5 Presence of coronary angioplasty implant and graft; Z95.1 Presence of aortocoronary bypass graft; I25.2 Old myocardial infarction; I12.9 Hypertensive chronic kidney disease with stage 1 through stage 4 chronic kidney disease, or unspecified chronic kidney disease; N18.9 Chronic kidney disease, unspecified; Z87.891 Personal history of nicotine dependence
CPT/HCPCS: 36415; 36416; 70450; 70551; 76705; 80048; 80053; 80061; 81003; 82553; 84484; 85025; 86850; 86900; 86901; 88304; 93005; 93306; 93880; 94640; 94760; G8978-GP-CJ; G8978-GP-CM; G8979-GP-CJ; G8979-GP-CM; G8980-GP-CJ; G8980-GP-CM; G8987-GO-CI; G8988-GO-CI; G8989-GO-CI; G8996-GN-CH; G8997-GN-CH; G8998-GN-CH; J0670; J1100; J1956; J2001; J2250; J2405; J2704; J3010; J7611; Q0162

== ENCOUNTER 2017-11-12 07:50 | Observation (INO) | payer MEDICARE ==
[2017-11-12] MEDS ORDERED: Lidocaine 1% (PF) 30 ML VIAL ONE (08:50)
[2017-11-12] MEDS ORDERED: Midazolam HCl 2 mg/2 ml Vial ONE (10:37)
[2017-11-12] MEDS ORDERED: Fentanyl 100 MCG/2 ML VIAL ONE (10:37)
[2017-11-12] MEDS ORDERED: Iopamidol 370 76% 100 ML VIAL ONE (11:19)
[2017-11-12 14:05] VITALS: BMI 39.5
[2017-11-12] MEDS ORDERED: traMADol HCl 50 MG TAB PO PRN (14:07)
[2017-11-12] MEDS ORDERED: Nitroglycerin 0.4 MG TAB (25 Tab Bottle) SL PRN (14:07)
[2017-11-12] MEDS ORDERED: Acetaminophen/Codeine 30-300mg Tablet PO PRN ×2 (14:07)
[2017-11-12] MEDS: Dronedarone HCl 400 MG TAB PO SCH (15:41)
[2017-11-12] MEDS: Sodium Chloride 0.9% 1,000 ML IV SCH (15:42)
[2017-11-12] MEDS: Carvedilol 25 MG TAB PO SCH (15:52)
[2017-11-12] MEDS: Calcium Carbonate + Vit D 1 TAB PO SCH (20:42)
[2017-11-12] MEDS ORDERED: Carvedilol 25 MG TAB PO SCH (21:00)
[2017-11-12] MEDS ORDERED: Losartan 25 MG TAB PO SCH (21:00)
[2017-11-12] MEDS ORDERED: Apixaban 5 MG TAB PO SCH (21:00)
[2017-11-12] MEDS ORDERED: Atorvastatin Calcium 10 MG TAB PO SCH (21:00)
[2017-11-13] MEDS: Sodium Chloride 0.9% 1,000 ML IV SCH (01:16)
[2017-11-13] MEDS ORDERED: Levothyroxine Sodium 125 MCG TAB PO SCH (06:00)
[2017-11-13 07:42] VITALS: TEMP 98
[2017-11-13] MEDS ORDERED: metFORMIN 500 MG TAB PO SCH (08:00)
[2017-11-13] MEDS ORDERED: Losartan 25 MG TAB PO SCH (09:00)
[2017-11-13] MEDS: Carvedilol 25 MG TAB PO SCH (09:46)
[2017-11-13] MEDS: Dronedarone HCl 400 MG TAB PO SCH (09:47)
[2017-11-13] MEDS: Calcium Carbonate + Vit D 1 TAB PO SCH (09:48)
--- NOTE | 2017-11-13 10:42 | DIS ---
DATE OF ADMISSION: 11/12/2017 DATE OF DISCHARGE: 11/13/2017 SUMMARY: Ms. Anthony is a pleasant 77-year-old female who comes to the hospital for planned catheteri zation with possible PCI. She has had intervention in the past and bypass as well. She had an abnor mal stress test. She had her procedure yesterday which showed patent stents and she was kept overnig ht for observation. She has been doing quite well. Her cath site looks clean, dry, and intact with no evidence of complications. No bruits. She is stable for discharge. We will plan on sending her home. She will follow up with a new surveyor in [place] as she moved and she actually had to drive [place] 3-1/2 hours to get here. She will schedule something within the next 2 weeks. She tells me she kn ows already where she is going to go. OUTPATIENT MEDICATIONS: Unchanged from admission list, continue as before. Over 30 minutes were spent at bedside for discharge.
[2017-11-13 11:35] VITALS: BP 156/91
[2017-11-13] MEDS ORDERED: Apixaban 5 MG TAB PO SCH (21:00)
--- NOTE | 2017-11-15 17:49 | EKG ---
Test Reason : PREOP Blood Pressure : / mmHG Vent. Rate : 061 BPM Atrial Rate : 061 BPM P-R Int : 276 ms QRS Dur : 094 ms QT Int : 444 ms P-R-T Axes : 082 052 093 degrees QTc Int : 446 ms Sinus rhythm with 1st degree A-V block Nonspecific ST and T wave abnormality Abnormal ECG When compared with ECG of 30-JUN-2017 11:46, Criteria for Anterior infarct are no longer Present Nonspecific T wave abnormality no longer evident in Inferior leads Confirmed by CARMEN COURTNEY (2) on 11/15/2017 5:49:20 PM Referred By: RAZ Confirmed By:CARMEN COURTNEY
== END 2017-11-13 12:00 | disposition home or self-care (01) ==
LOC: CCL 07:50 → 2SW 13:15
PROVIDERS: ADMIT Internal Medicine Cardiovascular Disease; ATTEND Internal Medicine Cardiovascular Disease
DX: I25.10 Atherosclerotic heart disease of native coronary artery without angina pectoris (principal); Z88.5 Allergy status to narcotic agent; Z88.0 Allergy status to penicillin; Z95.5 Presence of coronary angioplasty implant and graft; Z95.1 Presence of aortocoronary bypass graft
CPT/HCPCS: 76942; 93005; 93459; 93798; 96360; 96361 ×2; C1769; G0378; 93010; 99152; A4216; J1644; J2001; J2250; J3010

== ENCOUNTER 2025-04-03 11:05 | Inpatient (IN) | payer MEDICARE ==
[~2025-04-03 11:05] MED LIST: Iopamidol-370 76% 500 ML MDV (1 ML CHARGE) ONE
[2025-04-03 11:49] LABS: #Basophils 0.03 10x3/uL (0.0-0.2); #Eosinophils 0.19 10x3/uL (0.0-0.7); #Monocytes 0.76 10x3/uL (0.11-0.59); #Neutrophils 5.09 10x3/uL (1.40-6.50); %Basophils 0.3 % (0.0-1.0); %Eosinophils 2.2 % (0.0-10.0); %Lymphocytes 31.0 % (21.0-51.0); %Monocytes 8.6 % (0.0-10.0); %Neutrophils 57.7 % (42.0-75.0); Hematocrit 21.9 % (36.0-47.0); Hemoglobin 6.3 g/dL (12.0-16.0); Mean Corpuscular Hemoglobin 22.0 pg (27.0-31.0); Mean Corpuscular Volume 76.6 fL (78.0-98.0); Platelet Count 376 10x3/uL (130-400); Red Blood Cell (RBC) Count 2.86 mill/uL (4.20-5.40); White Blood Cell (WBC) Count 8.83 10x3/uL (4.8-10.8)
[2025-04-03 11:52] LABS: ALT (SGPT) Less than 7 U/L (Less than 34); AST (SGOT) 17 U/L (11-34); Albumin 3.3 g/dL (3.1-4.5); Alkaline Phosphatase 56 U/L (40-110); Anion Gap 14 mmol/L (10-20); BUN (Urea Nitrogen) 19 mg/dL (9.8-20.1); Bilirubin, Total 0.7 mg/dL (0.3-1.2); Calc. Creatinine Clearance 0 mL/min (70-130); Calcium 8.6 mg/dL (7.8-10.44); Carbon Dioxide 23 mmol/L (23-31); Chloride 107 mmol/L (98-107); Globulin 3.4 g/dL (2.4-3.5); Glucose 143 mg/dL (83-110); Potassium 4.3 mmol/L (3.5-5.1); Sodium 140 mmol/L (136-145)
[2025-04-03 11:54] LABS: INR-International Normal Ratio 1.7; PTT 33.1 sec (22.9-36.1); Prothrombin Time 19.9 sec (12.0-14.7)
[2025-04-03 12:18] LABS: Microcytosis SLIGHT = 6-15 cells HPF (0-5); Platelet Adequacy Comment Platelets Normal; Polychromasia SLIGHT = 2-3 cells HPF (0-2); Schistocytes SLIGHT = 2-5 cells HPF (0-1); Smudge Cells 5.9 %
[2025-04-03] MEDS ORDERED: Ondansetron PF 4 MG/2 ML Vial IVP PRN (14:19)
[2025-04-03] MEDS ORDERED: Senokot S 8.6-50 MG TAB PO PRN (14:19)
[2025-04-03] MEDS ORDERED: Glucagon 1 MG/ML KIT IM PRN (14:19)
[2025-04-03] MEDS ORDERED: Acetaminophen 325 MG TAB PO PRN (14:19)
[2025-04-03] MEDS ORDERED: Dextrose 50% Abboject 50 ML SYRINGE SLOW IVP PRN (14:19)
[2025-04-03] MEDS ORDERED: Pantoprazole 40 MG VIAL ONE (14:21)
[2025-04-03 15:42] VITALS: BMI 29.6
[2025-04-03 16:12] LABS: Hematocrit 24.4 % (36.0-47.0); Hemoglobin 7.1 g/dL (12.0-16.0)
[2025-04-03] MEDS: Pantoprazole 40 MG VIAL IVP SCH (20:17)
[2025-04-03 22:18] LABS: Hematocrit 23.0 % (36.0-47.0); Hemoglobin 6.6 g/dL (12.0-16.0)
[2025-04-04 06:21] LABS: #Basophils 0.04 10x3/uL (0.0-0.2); #Eosinophils 0.16 10x3/uL (0.0-0.7); #Monocytes 0.85 10x3/uL (0.11-0.59); #Neutrophils 4.28 10x3/uL (1.40-6.50); %Basophils 0.5 % (0.0-1.0); %Eosinophils 2.1 % (0.0-10.0); %Lymphocytes 30.1 % (21.0-51.0); %Monocytes 11.1 % (0.0-10.0); %Neutrophils 55.9 % (42.0-75.0); Hematocrit 22.3 % (36.0-47.0); Hemoglobin 6.5 g/dL (12.0-16.0); Mean Corpuscular Hemoglobin 23.0 pg (27.0-31.0); Mean Corpuscular Volume 79.1 fL (78.0-98.0); Platelet Count 299 10x3/uL (130-400); Red Blood Cell (RBC) Count 2.82 mill/uL (4.20-5.40); White Blood Cell (WBC) Count 7.65 10x3/uL (4.8-10.8)
[2025-04-04 06:36] LABS: Anion Gap 10 mmol/L (10-20); BUN (Urea Nitrogen) 16 mg/dL (9.8-20.1); Calc. Creatinine Clearance 50 mL/min (70-130); Calcium 8.3 mg/dL (7.8-10.44); Carbon Dioxide 25 mmol/L (23-31); Chloride 109 mmol/L (98-107); Glucose 112 mg/dL (83-110); Potassium 4.1 mmol/L (3.5-5.1); Sodium 140 mmol/L (136-145)
[2025-04-04] MEDS ORDERED: Pantoprazole 80 MG, Admixture Fee 1 EACH in Sodium Chloride 0.9% 100 ML IVPB SCH (10:00)
[2025-04-04] MEDS ORDERED: Lidocaine 1% PF 5 ML VIAL ONE (10:54)
[2025-04-04] MEDS ORDERED: PROPOFOL 20 ML ONE (10:54)
[2025-04-04] MEDS ORDERED: Ketamine In 0.9 % NaCl 50 MG/5 ML SYRINGE ONE (10:54)
[2025-04-04] MEDS ORDERED: PROPOFOL 200 MG/20 ML VIAL ONE (10:56)
[2025-04-04 13:13] LABS: Iron 19 ug/dL (50-170); Iron Binding Capacity, Total 356 mcg/dL (265-497)
[2025-04-04] MEDS: Sodium Ferric Gluconate 250 MG in Sodium Chloride 0.9% 250 ML 250 ML IVPB SCH (16:47)
[2025-04-04] MEDS: GoLYTELY 4,000 ml Bottle PO SCH (16:59)
[2025-04-04 18:05] LABS: Hematocrit 26.9 % (36.0-47.0); Hemoglobin 8.1 g/dL (12.0-16.0)
[2025-04-04 21:17] LABS: Hematocrit 25.4 % (36.0-47.0); Hemoglobin 7.8 g/dL (12.0-16.0)
[2025-04-05 04:52] LABS: #Basophils 0.05 10x3/uL (0.0-0.2); #Eosinophils 0.07 10x3/uL (0.0-0.7); #Monocytes 0.96 10x3/uL (0.11-0.59); #Neutrophils 5.97 10x3/uL (1.40-6.50); %Basophils 0.5 % (0.0-1.0); %Eosinophils 0.8 % (0.0-10.0); %Lymphocytes 22.1 % (21.0-51.0); %Monocytes 10.5 % (0.0-10.0); %Neutrophils 65.6 % (42.0-75.0); Hematocrit 24.3 % (36.0-47.0); Hemoglobin 7.2 g/dL (12.0-16.0); Mean Corpuscular Hemoglobin 23.3 pg (27.0-31.0); Mean Corpuscular Volume 78.6 fL (78.0-98.0); Platelet Count 310 10x3/uL (130-400); Red Blood Cell (RBC) Count 3.09 mill/uL (4.20-5.40); White Blood Cell (WBC) Count 9.11 10x3/uL (4.8-10.8)
[2025-04-05 04:59] LABS: ALT (SGPT) Less than 7 U/L (Less than 34); AST (SGOT) 12 U/L (11-34); Albumin 2.8 g/dL (3.1-4.5); Alkaline Phosphatase 50 U/L (40-110); Anion Gap 13 mmol/L (10-20); BUN (Urea Nitrogen) 12 mg/dL (9.8-20.1); Bilirubin, Total 2.0 mg/dL (0.3-1.2); Calc. Creatinine Clearance 60 mL/min (70-130); Calcium 8.4 mg/dL (7.8-10.44); Carbon Dioxide 25 mmol/L (23-31); Chloride 108 mmol/L (98-107); Globulin 3.0 g/dL (2.4-3.5); Glucose 114 mg/dL (83-110); Potassium 4.0 mmol/L (3.5-5.1); Sodium 142 mmol/L (136-145)
[2025-04-05] MEDS ORDERED: PROPOFOL 40 ML ONE (09:06)
[2025-04-05] MEDS ORDERED: Lidocaine 1% PF 5 ML VIAL ONE (09:06)
[2025-04-05] MEDS: Lansoprazole 30 MG/10 ML UDCUP PO SCH (09:07)
[2025-04-05] MEDS ORDERED: GLYCOPYRROLATE/PF 0.2 MG/ML VIAL ONE (10:00)
[2025-04-05 13:24] LABS: Hematocrit 25.3 % (36.0-47.0); Hemoglobin 7.5 g/dL (12.0-16.0)
[2025-04-06 04:29] LABS: #Basophils 0.03 10x3/uL (0.0-0.2); #Eosinophils 0.11 10x3/uL (0.0-0.7); #Monocytes 0.97 10x3/uL (0.11-0.59); #Neutrophils 7.59 10x3/uL (1.40-6.50); %Basophils 0.3 % (0.0-1.0); %Eosinophils 1.0 % (0.0-10.0); %Lymphocytes 16.9 % (21.0-51.0); %Monocytes 9.2 % (0.0-10.0); %Neutrophils 71.9 % (42.0-75.0); Hematocrit 23.9 % (36.0-47.0); Hemoglobin 7.0 g/dL (12.0-16.0); Mean Corpuscular Hemoglobin 23.6 pg (27.0-31.0); Mean Corpuscular Volume 80.7 fL (78.0-98.0); Platelet Count 288 10x3/uL (130-400); Red Blood Cell (RBC) Count 2.96 mill/uL (4.20-5.40); White Blood Cell (WBC) Count 10.55 10x3/uL (4.8-10.8)
[2025-04-06 04:46] LABS: Anion Gap 8 mmol/L (10-20); BUN (Urea Nitrogen) 10 mg/dL (9.8-20.1); Calc. Creatinine Clearance 55 mL/min (70-130); Calcium 8.3 mg/dL (7.8-10.44); Carbon Dioxide 24 mmol/L (23-31); Chloride 110 mmol/L (98-107); Glucose 121 mg/dL (83-110); Potassium 3.6 mmol/L (3.5-5.1); Sodium 138 mmol/L (136-145)
[2025-04-06] MEDS: Isosorbide Mononitrate 60 MG ER.TAB PO SCH (08:52)
[2025-04-06] MEDS: Carvedilol 6.25 MG TAB PO SCH (08:52)
[2025-04-06] MEDS: FLU (Fluad Triv) 25-26 (65UP)PF 45 MCG/0.5 ML Syringe IM ONE (13:43)
[2025-04-06 20:08] LABS: Hematocrit 24.6 % (36.0-47.0); Hemoglobin 7.3 g/dL (12.0-16.0)
[2025-04-06] MEDS ORDERED: Simvastatin 20 MG TAB PO SCH (21:00)
[2025-04-06] MEDS: Simvastatin 10 MG TAB PO SCH (21:13)
[2025-04-06] MEDS: Losartan 25 MG TAB PO SCH (21:13)
[2025-04-07 05:11] LABS: #Basophils 0.03 10x3/uL (0.0-0.2); #Eosinophils 0.12 10x3/uL (0.0-0.7); #Monocytes 0.98 10x3/uL (0.11-0.59); #Neutrophils 7.53 10x3/uL (1.40-6.50); %Basophils 0.3 % (0.0-1.0); %Eosinophils 1.1 % (0.0-10.0); %Lymphocytes 17.3 % (21.0-51.0); %Monocytes 9.3 % (0.0-10.0); %Neutrophils 71.3 % (42.0-75.0); Hematocrit 26.2 % (36.0-47.0); Hemoglobin 7.8 g/dL (12.0-16.0); Mean Corpuscular Hemoglobin 24.4 pg (27.0-31.0); Mean Corpuscular Volume 81.9 fL (78.0-98.0); Platelet Count 293 10x3/uL (130-400); Red Blood Cell (RBC) Count 3.20 mill/uL (4.20-5.40); White Blood Cell (WBC) Count 10.56 10x3/uL (4.8-10.8)
[2025-04-07 05:20] LABS: Anion Gap 7 mmol/L (10-20); BUN (Urea Nitrogen) 11 mg/dL (9.8-20.1); Calc. Creatinine Clearance 53 mL/min (70-130); Calcium 8.1 mg/dL (7.8-10.44); Carbon Dioxide 24 mmol/L (23-31); Chloride 107 mmol/L (98-107); Glucose 137 mg/dL (83-110); Potassium 3.6 mmol/L (3.5-5.1); Sodium 134 mmol/L (136-145)
[2025-04-07] MEDS: Lactulose 20 GM (30 mL) UDCUP PO SCH (13:13)
[2025-04-07] MEDS: Apixaban 5 MG TAB PO SCH (21:08)
[2025-04-08 04:59] LABS: #Basophils 0.03 10x3/uL (0.0-0.2); #Eosinophils 0.15 10x3/uL (0.0-0.7); #Monocytes 1.06 10x3/uL (0.11-0.59); #Neutrophils 6.68 10x3/uL (1.40-6.50); %Basophils 0.3 % (0.0-1.0); %Eosinophils 1.6 % (0.0-10.0); %Lymphocytes 15.4 % (21.0-51.0); %Monocytes 11.2 % (0.0-10.0); %Neutrophils 70.8 % (42.0-75.0); Hematocrit 24.9 % (36.0-47.0); Hemoglobin 7.3 g/dL (12.0-16.0); Mean Corpuscular Hemoglobin 25.1 pg (27.0-31.0); Mean Corpuscular Volume 85.6 fL (78.0-98.0); Platelet Count 243 10x3/uL (130-400); Red Blood Cell (RBC) Count 2.91 mill/uL (4.20-5.40); White Blood Cell (WBC) Count 9.44 10x3/uL (4.8-10.8)
[2025-04-08 05:14] LABS: Anion Gap 9 mmol/L (10-20); BUN (Urea Nitrogen) 13 mg/dL (9.8-20.1); Calc. Creatinine Clearance 56 mL/min (70-130); Calcium 8.0 mg/dL (7.8-10.44); Carbon Dioxide 25 mmol/L (23-31); Chloride 108 mmol/L (98-107); Glucose 130 mg/dL (83-110); Potassium 3.5 mmol/L (3.5-5.1); Sodium 138 mmol/L (136-145)
[2025-04-08] MEDS: Aspirin 81 mg Enteric Coated Tablet PO SCH (09:57)
[2025-04-08 15:40] LABS: Hematocrit 29.5 % (36.0-47.0); Hemoglobin 8.9 g/dL (12.0-16.0)
[2025-04-09 04:48] LABS: #Basophils 0.03 10x3/uL (0.0-0.2); #Eosinophils 0.22 10x3/uL (0.0-0.7); #Monocytes 1.00 10x3/uL (0.11-0.59); #Neutrophils 6.50 10x3/uL (1.40-6.50); %Basophils 0.3 % (0.0-1.0); %Eosinophils 2.3 % (0.0-10.0); %Lymphocytes 19.0 % (21.0-51.0); %Monocytes 10.4 % (0.0-10.0); %Neutrophils 67.4 % (42.0-75.0); Hematocrit 26.6 % (36.0-47.0); Hemoglobin 8.0 g/dL (12.0-16.0); Mean Corpuscular Hemoglobin 25.6 pg (27.0-31.0); Mean Corpuscular Volume 85.0 fL (78.0-98.0); Platelet Count 272 10x3/uL (130-400); Red Blood Cell (RBC) Count 3.13 mill/uL (4.20-5.40); White Blood Cell (WBC) Count 9.64 10x3/uL (4.8-10.8)
[2025-04-09 05:40] LABS: Anion Gap 4 mmol/L (10-20); BUN (Urea Nitrogen) 14 mg/dL (9.8-20.1); Calc. Creatinine Clearance 59 mL/min (70-130); Calcium 8.0 mg/dL (7.8-10.44); Carbon Dioxide 24 mmol/L (23-31); Chloride 111 mmol/L (98-107); Glucose 119 mg/dL (83-110); Potassium 4.1 mmol/L (3.5-5.1); Sodium 135 mmol/L (136-145)
[2025-04-10 07:02] LABS: Hematocrit 28.5 % (36.0-47.0); Hemoglobin 8.2 g/dL (12.0-16.0); Mean Corpuscular Hemoglobin 25.4 pg (27.0-31.0); Mean Corpuscular Volume 88.2 fL (78.0-98.0); Platelet Count 292 10x3/uL (130-400); Red Blood Cell (RBC) Count 3.23 mill/uL (4.20-5.40); White Blood Cell (WBC) Count 8.29 10x3/uL (4.8-10.8)
[2025-04-10 07:10] LABS: Anion Gap 11 mmol/L (10-20); BUN (Urea Nitrogen) 15 mg/dL (9.8-20.1); Calc. Creatinine Clearance 47 mL/min (70-130); Calcium 8.0 mg/dL (7.8-10.44); Carbon Dioxide 26 mmol/L (23-31); Chloride 107 mmol/L (98-107); Glucose 162 mg/dL (83-110); Potassium 4.2 mmol/L (3.5-5.1); Sodium 140 mmol/L (136-145)
[2025-04-10 07:31] LABS: Anisocytosis MODERATE=16-30 cells HPF (0-5); Macrocytosis SLIGHT = 6-15 cells HPF (0-5); Platelet Adequacy Comment Platelets Normal; Polychromasia SLIGHT = 2-3 cells HPF (0-2); Smudge Cells 8.7 %
[2025-04-11 06:36] LABS: Hematocrit 28.9 % (36.0-47.0); Hemoglobin 8.3 g/dL (12.0-16.0)
[2025-04-12 09:59] VITALS: BMI 30.4
[2025-04-13 06:27] LABS: #Basophils 0.05 10x3/uL (0.0-0.2); #Eosinophils 0.23 10x3/uL (0.0-0.7); #Monocytes 0.82 10x3/uL (0.11-0.59); #Neutrophils 5.23 10x3/uL (1.40-6.50); %Basophils 0.6 % (0.0-1.0); %Eosinophils 2.6 % (0.0-10.0); %Lymphocytes 29.0 % (21.0-51.0); %Monocytes 9.1 % (0.0-10.0); %Neutrophils 58.0 % (42.0-75.0); Hematocrit 30.1 % (36.0-47.0); Hemoglobin 8.6 g/dL (12.0-16.0); Mean Corpuscular Hemoglobin 25.4 pg (27.0-31.0); Mean Corpuscular Volume 89.1 fL (78.0-98.0); Platelet Count 319 10x3/uL (130-400); Red Blood Cell (RBC) Count 3.38 mill/uL (4.20-5.40); White Blood Cell (WBC) Count 9.00 10x3/uL (4.8-10.8)
[2025-04-13 06:40] LABS: Anion Gap 9 mmol/L (10-20); BUN (Urea Nitrogen) 16 mg/dL (9.8-20.1); Calc. Creatinine Clearance 51 mL/min (70-130); Calcium 8.1 mg/dL (7.8-10.44); Carbon Dioxide 27 mmol/L (23-31); Chloride 106 mmol/L (98-107); Glucose 103 mg/dL (83-110); Potassium 4.8 mmol/L (3.5-5.1); Sodium 137 mmol/L (136-145)
[2025-04-13 06:59] LABS: Anisocytosis MODERATE=16-30 cells HPF (0-5); Macrocytosis SLIGHT = 6-15 cells HPF (0-5); Platelet Adequacy Comment Platelets Normal; Polychromasia SLIGHT = 2-3 cells HPF (0-2)
[2025-04-13 15:04] LABS: Glucose, Urine (Dipstick) Normal (Negative); Leukocyte 500 Leu/uL (Negative); Protein, Urine (Dipstick) 20 mg/dL (Neg-Trace); Specific Gravity, Urine 1.012 (1.002-1.036)
[2025-04-13 15:05] LABS: Bacteria/HPF 4+ HPF (None Seen); RBC/HPF 21-50 HPF (0-3); WBC/HPF Greater than 50 HPF (0-3)
[2025-04-13] MEDS: Ciprofloxacin 500 MG TAB PO SCH (20:07)
[2025-04-14 12:09] VITALS: BP 107/63; TEMP 98.1
== END 2025-04-14 14:22 | disposition home or self-care (01) | DRG 811 ==
LOC: ERS 11:05 → 2NO 14:12 → SURG B 04-09 17:23
PROVIDERS: ADMIT Family Medicine; ATTEND Internal Medicine
PROC: 0DJ08ZZ Inspection of Upper Intestinal Tract, Via Natural or Artificial Opening Endoscopic (ICD-10-PCS; principal; 2025-04-04)
PROC: 30233N1 Transfusion of Nonautologous Red Blood Cells into Peripheral Vein, Percutaneous Approach (ICD-10-PCS; 2025-04-04)
PROC: 0DJD8ZZ Inspection of Lower Intestinal Tract, Via Natural or Artificial Opening Endoscopic (ICD-10-PCS; 2025-04-05)
PROC: 3E03329 Introduction of Other Anti-infective into Peripheral Vein, Percutaneous Approach (ICD-10-PCS; 2025-04-14)
DX: D62 Acute posthemorrhagic anemia (principal); K57.31 Diverticulosis of large intestine without perforation or abscess with bleeding; I48.20 Chronic atrial fibrillation, unspecified; N39.0 Urinary tract infection, site not specified; I25.10 Atherosclerotic heart disease of native coronary artery without angina pectoris; E11.9 Type 2 diabetes mellitus without complications; I10 Essential (primary) hypertension; Z88.0 Allergy status to penicillin; Z88.5 Allergy status to narcotic agent; Z88.1 Allergy status to other antibiotic agents; E03.9 Hypothyroidism, unspecified; I25.2 Old myocardial infarction; Z95.5 Presence of coronary angioplasty implant and graft; Z96.653 Presence of artificial knee joint, bilateral; Z90.49 Acquired absence of other specified parts of digestive tract; Z90.710 Acquired absence of both cervix and uterus; Z79.01 Long term (current) use of anticoagulants; Z79.890 Hormone replacement therapy
CPT/HCPCS: 36415; 36416; 36430; 74177; 80048; 80053; 81001; 82274; 82728; 83036; 83540; 83550; 84484; 85014; 85018; 85025; 85610; 85730; 86850; 86900; 86901; 87077; 87086; 87186; 93005; 96374; J1815; J2470; J2704; J2916; J3490; J7050; P9016; Q9967